=== PATIENT | female | born 1970 | race Caucasian/White ===

== ENCOUNTER 2024-03-14 13:04 | Inpatient (IN) | payer OTHER, SELFPAY ==
[2024-03-14] VITALS (43 sets, daily range): BP systolic 68–138; BP diastolic 47–97; BMI 31.7
[2024-03-14] MEDS: NSS 1000 IV ×3 (09:39→17:49)
--- NOTE | 2024-03-14 09:40 | ED.GENMED ---
History of Present Illness
General
Chief Complaint: Change in Mental Status
Source: patient, ambulance crew and alf
Exam Limitations: other (Combination of clinical condition as well as schizoaffective disorder and chronic difficulty with communication)
Time Seen by Provider: 03/14/24 09:02
History of Present Illness
History of Present Illness:
54-year-old female past medical history of hypertension hyperlipidemia GERD, previous stroke Fernea presenting to the emergency department today with concerns of altered mental status from [facility]. Apparently she was febrile walk 3 weeks ago now
she has been very lethargic and tired.
Review of Systems
Review of Systems
Allergies reviewed?: Yes
All Other Systems: ROS reviewed and negative except as documented in HPI and ROS
Phy Exam
Physical Exam
Physical Exam:
GENERAL: Alert , very dry
EYE: pupils equal and reactive
NECK: Supple, no significant adenopathy.
ENT: Dry mucous membranes chapped lips o/p clr, mmm.
CARDIAC: Regular rate and rhythm .
LUNGS: Clear breath sounds bilaterally, no acute respiratory distress, no wheezes/rales/rhonchi
ABDOMEN: Soft, without focal tenderness, no r/g, no cvat
NEUROLOGICAL: Alert answering questions but not seemingly making much sense. Not able to answer questions directly no focal neuro deficits
SKIN: Warm and dry, skin intact.
MUSCULOSKELETAL: No edema, well perfused.
PSYCH: Patient pleasant however not answering any questions directly and rambling incoherently.
Course
Orders/Labs/Results
Orders:
Orders
03/14/24 09:05
ECG [Electrocardiogram (*1)] Urgent
Reason for Study: Other
Other Reason for Exam: change in mental status
03/14/24 09:06
EKG- Treatment ONCE
03/14/24 09:14
Chest [CR Chest - 2 Views ] Urgent
Comment:
Reason For Exam: hypoxia
03/14/24 09:28
COVID-19 Antigen Urgent
Source: Nasal Swab
Complete Blood Count/With Diff Urgent
Comprehensive Metabolic Panel Urgent
Urinalysis Reflex To Culture Urgent
Date Specimen was Collected: 03/14/24
Time Specimen was Collected: 09:06
Urine Microscopic Reflex Cult Urgent
Influenza A+B Rapid Molecular Urgent
BARB Source: Nasal Swab
Specimen Description:
Date Specimen was Collected: 03/14/24
Time Specimen was Collected: 09:06
03/14/24 09:31
CT Head W/o Iv Contrast Urgent
Comment:
Reason For Exam: ams
0.9% Sodium Chloride 1000 ml [Nss] 1,000 ml IV BOLUS
03/14/24 11:45
NEPHROLOGY CONSULT Routine
Consulting Provider: Ben Jacome
Was physician already notified: Yes
Abnormal Lab Results
03/14/24
09:28
WBC 12.8 H 10^3/uL
(4.8-10.8)
Hct 50.7 H %
(37.0-47.0)
MCHC 31.0 L g/dL
(33.0-37.0)
MPV 14.1 H fL
(7.4-10.4)
Abs Immat Gran (auto) 0.1 H 10^3/uL
(0-0.05)
Absolute Neuts (auto) 9.8 H 10^3/uL
(1.4-6.5)
Absolute Monos (auto) 0.8 H 10^3/uL
(0.1-0.6)
Neutrophils % 76.2 H %
(42.2-75.2)
Lymphocytes % 13.3 L %
(20.5-51.1)
Sodium 155 H mmol/L
(135-145)
Carbon Dioxide 32 H mmol/L
(22-30)
BUN 149 H* mg/dl
(7-17)
Creatinine 5.0 H* mg/dL
(0.6-1.0)
Glucose 131 H mg/dl
(70-99)
Total Bilirubin 1.9 H mg/dl
(0.2-1.3)
Alkaline Phosphatase 208 H U/L
(38-126)
Total Protein 8.4 H g/dl
(6.3-8.2)
Leukocyte Esterase Rfl Trace A
(Negative)
Urine Albumin (Reflex) 1+ A
(Neg - Trace)
03/14/24 09:28
03/14/24 09:28
Vital Signs
Initial and Last Documented VS:
Initial Vital Signs
Temp Pulse Resp BP Pulse Ox
98.9 F 76 20 105/84 92
03/14/24 09:06 03/14/24 09:06 03/14/24 09:06 03/14/24 09:06 03/14/24 09:06
Last Documented Vital Signs
Temp Pulse Resp BP Pulse Ox
98.9 F 89 14 138/97 100
03/14/24 09:06 03/14/24 10:20 03/14/24 10:20 03/14/24 10:20 03/14/24 10:20
MDM/Problems Addressed
MDM/Problems Addressed:
54-year-old female presenting for altered mental status from review. She claims she has not eaten or drank anything in multiple days. Here renal function elevated significantly elevated BUN elevated sodium. Patient started on fluids as she is
likely very dehydrated appears clinically dehydrated normal CT and x-ray. Admitted for further treatment.
*Critical Care Note
Total Time (30-74mins, 75-104mins- exclusive of procedures): Not Applicable
ED Attending Note
-
Portions of this chart may have been created with voice recognition software.� Occasional wrong word or��sound alike� substitutions may have occurred due to the inherent limitations of voice recognition software.
Discharge Plan
Departure
Patient Disposition: Admit
Date of Disposition: 03/14/24
Time of Disposition: 11:47
Admit to: Med/Surg
Admit to doctor: Sathish
Presentation/result/management discussed w/ accepting MD/DO: Hospitalist
Patient with high blood pressure during this ER visit?: No
Condition: Fair
Covid-19: Not Applicable
Discharge Problem:
TERESSA (acute kidney injury), AMS (altered mental status)
Prescriptions:
No Action
acetaminophen [Tylenol] 325 mg Tablet
650 mg PO Q6HPRN PRN (Reason: mild pain)
ondansetron HCl [Zofran] 8 mg Tablet
8 mg PO Q8HPRN PRN (Reason: nausea)
magnesium hydroxide [Milk of Magnesia] 400 mg/5 mL Suspension
2,400 mg PO [id number] PRN (Reason: constipation)
lithium carbonate 300 mg Capsule
300 mg PO HS
bisacodyl [Dulcolax (bisacodyl)] 10 mg Suppository
10 mg MA DAILYPRN PRN (Reason: if no bm aftr mom)
pantoprazole [Protonix] 40 mg Tablet,Delayed Release (Dr/Ec)
40 mg PO DAILY
Fleet Enema 19-7 gram/118 mL Enema
118 ml MA DAILYPRN PRN (Reason: if no bm aftr dulcolax)
furosemide [Lasix] 20 mg Tablet
10 mg PO DAILY
nystatin 100,000 unit/gram Powder
1 applic TOPICAL BID
Rx Instructions:
abd folds, under breast, groin
aripiprazole 10 mg Tablet
10 mg PO DAILY
duloxetine [Cymbalta] 60 mg Capsule,Delayed Release(Dr/Ec)
60 mg PO DAILY
buprenorphine HCl 600 mcg Film
600 mcg BUCCAL Q12H
Referrals:
Keo Mtz, DO [Family Provider] -
Interventions
Interventions:
*Risk Screen - Suicide Last Done: 03/14/24 10:09
*General Assessment Last Done: 03/14/24 10:09
*Neglect/Abuse Screening Last Done: 03/14/24 10:09
ED- Fall Risk Assessment Last Done: 03/14/24 10:02
*ED COVID-19 Vaccine History Last Done: 03/14/24 09:13
ED- Neurological Assessment Last Done: 03/14/24 10:02
ED- Cardiac Assessment Last Done: 03/14/24 10:02
ED Swallowing Screen Last Done: 03/14/24 10:02
Discharge Date and Time
Print Language: BOLIVIAN
[2024-03-14 09:43] LABS: % Basophils 0.5 % (0-2); % Eosinophils 3.4 % (0-6); % Immature Granulocytes 0.5 % (0-0.5); % Lymphocytes 13.3 % (20.5-51.1); % Monocytes 6.1 % (1.7-9.3); % Neutrophils 76.2 % (42.2-75.2); Absolute Basophils 0.1 10^3/uL (0-0.2); Absolute Eosinophils 0.4 10^3/uL (0-0.7); Absolute Immature Granulocytes 0.1 10^3/uL (0-0.05); Absolute Lymphocytes 1.7 10^3/uL (1.2-3.4); Absolute Monocytes 0.8 10^3/uL (0.1-0.6); Absolute Neutrophils 9.8 10^3/uL (1.4-6.5); Hematocrit 50.7 % (37.0-47.0); Hemoglobin 15.7 g/dL (12.0-16.0); Mean Corpuscular Hgb 29.6 pg (27.0-31.0); Mean Corpuscular Volume 95.7 fL (81.0-99.0); Mean Platelet Volume 14.1 fL (7.4-10.4); Nucleated Red Blood Cells % 0 %; Platelet Count 154 10^3/uL (130-400); Red Cell Dist. Width 13.2 % (11.5-14.5); White Blood Cell Count 12.8 10^3/uL (4.8-10.8)
[2024-03-14 09:52] LABS: COVID-19 Antigen Negative (Negative)
[2024-03-14 10:04] LABS: Urine Albumin 1+ (Neg - Trace); Urine Bilirubin Negative (Negative); Urine Character Clear (Clear); Urine Color Yellow; Urine Glucose Negative (Negative); Urine Ketone Negative (Negative); Urine Leukocyte Trace (Negative); Urine Nitrite Negative (Negative); Urine Occult Blood Negative (Negative); Urine Urobilinogen Negative (Neg - 1+)
[2024-03-14 10:12] LABS: ALT (SGPT) 14 U/L (0-35); AST (SGOT) 23 U/L (14-36); Albumin 4.8 g/dl (3.5-5.0); Alkaline Phosphatase 208 U/L (38-126); Calcium 9.5 mg/dl (8.4-10.2); Carbon Dioxide 32 mmol/L (22-30); Chloride 105 mmol/L (98-107); Estimated Creatinine Clearance 14 ml/min; Glucose 131 mg/dl (70-99); Sodium 155 mmol/L (135-145); Total Bilirubin 1.9 mg/dl (0.2-1.3); Total Protein 8.4 g/dl (6.3-8.2); eGFR 9.64
[2024-03-14 10:29] LABS: Urine Red Blood Cell 0-2 /HPF (0-2); Urine White Cell 0-2 /HPF (0-5)
[2024-03-14 10:35] LABS: Blood Urea Nitrogen 149 mg/dl (7-17)
[2024-03-14 12:56] LABS: Calcium 8.7 mg/dl (8.4-10.2); Carbon Dioxide 33 mmol/L (22-30); Chloride 109 mmol/L (98-107); Creatine Phosphokinase 79 U/L (30-135); Estimated Creatinine Clearance 15 ml/min; Glucose 115 mg/dl (70-99); Potassium 3.5 mmol/L (3.5-5.1); Sodium 155 mmol/L (135-145); eGFR 10.13
[2024-03-14 13:10] LABS: Osmolality Urine 428 mOsm/kg (300-900)
[2024-03-14 13:27] LABS: Urine Protein 27 mg/dl (0-12); Urine Sodium 16 mmol/L (30-90)
[2024-03-14 13:35] LABS: Blood Urea Nitrogen 136 mg/dl (7-17); Lithium 2.2 mmol/L (0.6-1.2)
--- NOTE | 2024-03-14 14:26 | HPS.HSE ---
Family Physician
-
Family Physician: Keo Mtz, DO
Chief Complaint
-
Lethargy
History of Present Illness
54 female from [facility] with a medical history of major depressive disorder hyperlipidemia hypertension CVA schizoaffective bipolar chronic pain syndrome GERD who presents with lethargy and poor p.o. intake incidentally found to have
a creatinine of 5.0. CT brain without evidence of acute intracranial abnormalities. Old 4 cm posterior inferior CVA. Mild diffuse cortical atrophy. CXR without active pulmonary issues.
Limited history due to mental status.
Medical History
Past Medical History
Past Medical History: Reports CVA, GERD, HTN and Hypercholesterolemia
Past Surgical History: Reports Other
Social History
Unable to obtain full social history at this time due to: Acuity
Family History
Family History: Other
Allergies / Home Medications
Allergies reflects when Allergies were last updated in [employer].
Home Medications with original date entered in [employer]
Allergy/Medication List:
Allergies
Allergy/AdvReac Type Severity Reaction Status Date / Time
iodine Allergy Unknown Verified 03/14/24 09:10
latex Allergy Unknown Verified 03/14/24 09:10
Sulfa (Sulfonamide Allergy Unknown Verified 03/14/24 09:10
Antibiotics)
trimethoprim Allergy Unknown Verified 03/14/24 09:10
Home Medications
acetaminophen 325 mg tablet (Tylenol) 650 mg PO Q6HPRN PRN mild pain 03/14/24
aripiprazole 10 mg tablet 10 mg PO DAILY 03/14/24
bisacodyl 10 mg rectal suppository (Dulcolax (bisacodyl)) 10 mg DC DAILYPRN PRN if no bm aftr mom 03/14/24
buprenorphine HCl 600 mcg buccal film 600 mcg buccal Q12H 03/14/24
duloxetine 60 mg capsule,delayed release (Cymbalta) 60 mg PO DAILY 03/14/24
furosemide 20 mg tablet (Lasix) 10 mg PO DAILY 03/14/24
lithium carbonate 300 mg capsule 300 mg PO HS 03/14/24
magnesium hydroxide 400 mg/5 mL oral suspension (Milk of Magnesia) 2,400 mg PO [id number] PRN constipation 03/14/24
nystatin 100,000 unit/gram topical powder 1 applic topical BID 03/14/24
ondansetron HCl 8 mg tablet 8 mg PO Q8HPRN PRN nausea 03/14/24
pantoprazole 40 mg tablet,delayed release (Protonix) 40 mg PO DAILY 03/14/24
sodium phosphates 19 gram-7 gram/118 mL enema (Fleet Enema) 118 ml DC DAILYPRN PRN if no bm aftr dulcolax 03/14/24
Review of Systems
-
Unable to obtain full review of systems at this time due to: Acuity
Physical Exam
Vital Signs
Vital Signs
Temp Pulse Resp BP Pulse Ox
98.9 F 71 16 112/73 96
03/14/24 09:06 03/14/24 13:00 03/14/24 13:00 03/14/24 13:00 03/14/24 13:00
Physical Exam
General: Poor Appetite, Obese and Other (lethargic)
Laboratory Results
-
03/14/24 09:28
03/14/24 12:19
Laboratory Results
Total Bilirubin 1.9 mg/dl (0.2-1.3) H 03/14/24 09:28
AST 23 U/L (14-36) 03/14/24 09:28
ALT 14 U/L (0-35) 03/14/24 09:28
Alkaline Phosphatase 208 U/L (38-126) H 03/14/24 09:28
Impression/Plan
-
Lethargic, confused, crusting over both eyelids,
Scleral Anicteric
DMM, bruising on lateral portions of tongue
No JVD
Poor inspiratory effort, diminished breath sounds
RRR, S1/S2
Soft, NT, ND, BS+
Warm, Dry
Arousable but lethargic does not know where she has thinks it is September 2024
Toxic metabolic encephalopathy suspect related to lithium toxicity versus uremic encephalopathy
-Check lithium level
-May require hemodialysis
-May require EEG as she has bruising on lateral tongue
-Check CK if high would obtain EEG
TERESSA
-Place Banegas
-Check urine studies
-RBUS
-CK
-Avoid nephrotoxins hypotension
Bipolar/schizophrenia
-Continue neuropsychiatric agents
-Hold lithium
-Consult psychiatry
Leukocytosis
-Without other defining evidence of acute infectious process. Will continue to monitor.
-If becomes hypotensive or febrile would obtain blood cultures 30 minutes apart from 2 different sites and initiate IV antibiotics
There is no listed contacts
-Will require hemodialysis
-Two-physician emergency consent is required
-I agree with this as this is needed to emergently treat. She will need emergent hemodialysis along with emergent temporary/primary catheter dialysis placement
--- NOTE | 2024-03-14 14:43 | CON.INTV ---
Consultation
Consultation Request
Date/Time Consultation Requested: 03/14/2024-4 PM
Date/Time Consultation Performed: 03/14/2024-4:30 PM
Requesting Provider: Hospitalist
Performing Provider: Dr. Ovalle
Reason for Consultation: [place] toxicity/critical care management
Medical History
-
Chief Complaint: Lethargy and renal failure
History of Present Illness:
54-year-old female from [facility] with a history of depression, hypertension, hyperlipidemia, schizoaffective disorder, bipolar disorder, hypertension, GERD, and CVA who presented with lethargy noted to have lithium toxicity and acute renal
failure-legal coordinator consulted for acute renal failure/emergent dialysis/lithium toxicity and critical care management 03/14/2024. Patient is seen in the medical intensive care unit when she arrived and she is lethargic and noncommunicative. Review
of systems was unobtainable. She was in no respiratory distress.
Past Medical History
Past Medical History: None (Hypertension. Hyperlipidemia. Major depression. Schizoaffective disorder. Bipolar disorder. GERD. CVA.)
Social History
Tobacco: Other (Unknown)
Alcohol: None
Drug: None
Living: [facility]
Occupational Exposures: No known asbestos exposure
Environmental Exposures: No known tuberculosis exposure
Family History
Family History: Unable to Obtain
Allergies / Home Medications
Allergies
Allergy/AdvReac Type Severity Reaction Status Date / Time
iodine Allergy Unknown Verified 03/14/24 09:10
latex Allergy Unknown Verified 03/14/24 09:10
Sulfa (Sulfonamide Allergy Unknown Verified 03/14/24 09:10
Antibiotics)
trimethoprim Allergy Unknown Verified 03/14/24 09:10
Home Medications
�Medication �Instructions �Recorded �Confirmed �Last Taken �Type
acetaminophen 325 mg tablet 650 mg PO Q6HPRN PRN mild pain 03/14/24 03/14/24 Unknown History
(Tylenol)
aripiprazole 10 mg tablet 10 mg PO DAILY 03/14/24 03/14/24 Unknown History
bisacodyl 10 mg rectal suppository 10 mg MT DAILYPRN PRN if no bm 03/14/24 03/14/24 Unknown History
(Dulcolax (bisacodyl)) aftr mom
buprenorphine HCl 600 mcg buccal 600 mcg buccal Q12H 03/14/24 03/14/24 Unknown History
film
duloxetine 60 mg capsule,delayed 60 mg PO DAILY 03/14/24 03/14/24 Unknown History
release (Cymbalta)
furosemide 20 mg tablet (Lasix) 10 mg PO DAILY 03/14/24 03/14/24 Unknown History
lithium carbonate 300 mg capsule 300 mg PO HS 03/14/24 03/14/24 Unknown History
magnesium hydroxide 400 mg/5 mL 2,400 mg PO [id number] PRN 03/14/24 03/14/24 Unknown History
oral suspension (Milk of Magnesia) constipation
nystatin 100,000 unit/gram topical 1 applic topical BID 03/14/24 03/14/24 Unknown History
powder
ondansetron HCl 8 mg tablet 8 mg PO Q8HPRN PRN nausea 03/14/24 03/14/24 Unknown History
pantoprazole 40 mg tablet,delayed 40 mg PO DAILY 03/14/24 03/14/24 Unknown History
release (Protonix)
sodium phosphates 19 gram-7 118 ml MT DAILYPRN PRN if no bm 03/14/24 03/14/24 Unknown History
gram/118 mL enema (Fleet Enema) aftr dulcolax
Review of Systems
-
Unable to Obtain full review of systems at this time due to: Other (Per HPI)
Vitals / Labs / Diagnostic Testing
Vital Signs
Temp Pulse Resp BP Pulse Ox
98.9 F 70 20 110/47 96
03/14/24 09:06 03/14/24 14:30 03/14/24 14:30 03/14/24 14:00 03/14/24 14:30
Lab Data
03/14/24 09:28
03/14/24 12:19
Microbiology
03/14/24 09:28 Nasal Swab Influenza Types A & B (BREEZY) - Final
Negative for Influenza A & B, NAAT
Negative results must be combined with clinical observations
and patient history.
Nucleic Acid Amplification test (NAAT)performed on the
[employer] platform.
Diagnostic Testing:
Physical Exam
-
Exam:
Well-nourished and well-developed in no apparent distress
HEENT-atraumatic, normocephalic,
Neck-supple, no JVD, no bruit
Heart-regular rate and rhythm-no murmurs, rubs or gallops
Chest-clear to auscultation, no wheezes, crackles
Back-no tenderness
Abdomen-soft, nontender, nondistended, no hepatosplenomegaly
Extremities-no cyanosis, clubbing, edema and good peripheral pulses
Integument-intact, no rashes, lesions or ecchymosis
Neurologically alert but lethargic, moving extremities
Assessment
-
54-year-old female from [facility] with a history of depression, hypertension, hyperlipidemia, schizoaffective disorder, bipolar disorder, hypertension, GERD, and CVA who presented with lethargy noted to have lithium toxicity and acute renal
failure-legal coordinator consulted for acute renal failure/emergent dialysis/lithium toxicity and critical care management 03/14/2024.
TERESSA
[place] toxicity- 2.2
Hypernatremia
Toxic metabolic encephalopathy
Leukocytosis
Mild hyperglycemia
Conditions present prior to admission:
Hypertension.
Hyperlipidemia.
Major depression.
Schizoaffective disorder.
Bipolar disorder.
GERD.
CVA.
Plan
Patient will be transported to medical intensive care unit for emergent dialysis and this lithium toxic patient
Supplemental oxygen as needed
High flow oxygen if needed
Aspiration precautions
Nebulizers if needed-currently not bronchospastic
Nephrology evaluation
Emergent hemodialysis
Monitor renal function
Replace electrolytes as needed
Intravenous fluids per nephrology
Monitor blood sugar
Insulin supplementation if needed
DVT prophylaxis-on subcu heparin
GI prophylaxis-on pantoprazole
Nutrition orally when mental status improves-aspiration precautions speech therapy evaluation if needed
Early mobilization
Critical care statement: A total of 65 minutes of critical care time was provided for this patient today. This includes management of unstable vital signs, evaluation of the patient at bedside, reviewing the patient's pertinent medical records
including radiographs, microbiology, laboratory evaluations, and discussion with primary team, consultants, pharmacy, nutrition, physical therapy, case management, charge nurse, critical care nursing, and respiratory therapy.
Diagnostic data:
Chest x-ray 03/14/2024-NAD
CT head 03/14/2024-old 4 cm right posterior inferior cerebellar infarct
Data Reviewed
-
EKG: Report reviewed by me
Radiology: Report reviewed by me
Medical Tests (Nuc Med, Echo etc): Report reviewed by me
Labs: Labs reviewed by me
Old Records: Reviewed
Critical Care Time (in minutes): 65
--- NOTE | 2024-03-14 16:24 | CS.PSYCHR ---
Consult Summary - Psychiatry
-
Pt is a 54 yo female from [facility] with PMH of hyperlipidemia, hypertension, CVA, chronic pain syndrome, GERD, hx of Bipolar vs Schizoaffective d/o who presented with lethargy and poor p.o. intake; found to have a creatinine of 5.0.
Head CT showed no acute intracranial abnormalities, old 4 cm posterior inferior CVA, mild diffuse cortical atrophy. [place] level 2.2 at 12:19 pm today. QTc 497.
On exam, pt lying on stretcher, awake, c/o pain in her lower body, states unable to move her feet. Pt is poor historian, not able to give much information, was able to state she is at [facility]. Pt having occasional generalized body
twitch.
Psych Hx: unspecified Bipolar vs Schizoaffective d/o, no details available. Pt on [place] Switch, Abilify, Cymbalta
SH: from [facility]; no other information available.
MSE: lying on stretcher, immobile, awake but appears confused. Oriented to self and place. Not able to answer questions. No overt psychosis, no agitation.
Imp: Unspecified Bipolar d/o vs Schizoaffective d/o, presenting with [place] toxicity
Rec: Agree with holding off psychotropic medications until pt is more stable and history can be obtained
will follow
--- NOTE | 2024-03-14 16:36 | PTCARENOTE ---
Pt admitted to ICU bed 3370 from ED. Pt drowsy with quiet, garbled speech and frequent muscle twitching. Sinus rhythm. VSS. Lungs CTA. Abdomen soft. Banegas intact. New right IJ HD cath. HD RN at bedside.
[2024-03-14] MEDS: MANNITOL 25% 12.5 GRAMS IV ×2 (16:45→17:45)
--- NOTE | 2024-03-14 17:13 | W.CON.NEPH ---
Consultation
-
Date/Time Consultation Requested: March 14, 2024 at 11:45 AM
Date/Time Consultation Performed: March 14, 2024 at 3 PM
Requesting Provider: Dr. Iniguez
Performing Provider: Dr. Ben Jacome
Reason for Consultation: Acute kidney injury
Medical History
-
Chief Complaint: Acute kidney injury
History of Present Illness:
54 female from [facility] with a medical history of major depressive disorder hyperlipidemia hypertension CVA schizoaffective bipolar chronic pain syndrome GERD who presents with lethargy and poor p.o. intake incidentally found to have
a creatinine of 5.0. CT brain without evidence of acute intracranial abnormalities. Old 4 cm posterior inferior CVA. Mild diffuse cortical atrophy..
Patient found to be in acute kidney injury she is on lithium with a lithium level of 2.2 she is essentially obtunded no response she is oligoanuric
Renal consult for acute kidney injury
Past Medical History
Schizoaffective bipolar disorder chronic pain syndrome history of CVA hypertension hyperlipidemia
Social History
Unobtainable secondary to clinical status
Family History
Family History: Not Pertinent
Allergies / Home Medications
Allergy/AdvReac Type Severity Reaction Status Date / Time
iodine Allergy Unknown Verified 03/14/24 09:10
latex Allergy Unknown Verified 03/14/24 09:10
Sulfa (Sulfonamide Allergy Unknown Verified 03/14/24 09:10
Antibiotics)
trimethoprim Allergy Unknown Verified 03/14/24 09:10
�Medication �Instructions �Recorded �Confirmed �Type
acetaminophen 325 mg tablet 650 mg PO Q6HPRN PRN mild pain 03/14/24 03/14/24 History
(Tylenol)
aripiprazole 10 mg tablet 10 mg PO DAILY 03/14/24 03/14/24 History
bisacodyl 10 mg rectal suppository 10 mg NC DAILYPRN PRN if no bm 03/14/24 03/14/24 History
(Dulcolax (bisacodyl)) aftr mom
buprenorphine HCl 600 mcg buccal 600 mcg buccal Q12H 03/14/24 03/14/24 History
film
duloxetine 60 mg capsule,delayed 60 mg PO DAILY 03/14/24 03/14/24 History
release (Cymbalta)
furosemide 20 mg tablet (Lasix) 10 mg PO DAILY 03/14/24 03/14/24 History
lithium carbonate 300 mg capsule 300 mg PO HS 03/14/24 03/14/24 History
magnesium hydroxide 400 mg/5 mL 2,400 mg PO [id number] PRN 03/14/24 03/14/24 History
oral suspension (Milk of Magnesia) constipation
nystatin 100,000 unit/gram topical 1 applic topical BID 03/14/24 03/14/24 History
powder
ondansetron HCl 8 mg tablet 8 mg PO Q8HPRN PRN nausea 03/14/24 03/14/24 History
pantoprazole 40 mg tablet,delayed 40 mg PO DAILY 03/14/24 03/14/24 History
release (Protonix)
sodium phosphates 19 gram-7 118 ml NC DAILYPRN PRN if no bm 03/14/24 03/14/24 History
gram/118 mL enema (Fleet Enema) aftr dulcolax
Review of Systems
-
Patient essentially obtunded unable to provide history
Physical Exam
Vital Signs
Vital Signs
Temp Pulse Resp BP Pulse Ox
98.3 F 91 21 115/66 93
03/14/24 16:32 03/14/24 16:32 03/14/24 16:32 03/14/24 16:32 03/14/24 16:32
Lab Results
WBC 12.8 10^3/uL (4.8-10.8) H 03/14/24 09:28
RBC 5.30 10^6/uL (4.20-5.40) 03/14/24 09:28
Hgb 15.7 g/dL (12.0-16.0) 03/14/24 09:28
Hct 50.7 % (37.0-47.0) H 03/14/24 09:28
Plt Count 154 10^3/uL (130-400) 03/14/24 09:28
Sodium 155 mmol/L (135-145) H 03/14/24 12:19
Potassium 3.5 mmol/L (3.5-5.1) 03/14/24 12:19
Chloride 109 mmol/L (98-107) H 03/14/24 12:19
Carbon Dioxide 33 mmol/L (22-30) H 03/14/24 12:19
BUN 136 mg/dl (7-17) H* 03/14/24 12:19
Creatinine 4.8 mg/dL (0.6-1.0) H* 03/14/24 12:19
eGFR 10.13 03/14/24 12:19
Glucose 115 mg/dl (70-99) H 03/14/24 12:19
Calcium 8.7 mg/dl (8.4-10.2) 03/14/24 12:19
Albumin 4.8 g/dl (3.5-5.0) 03/14/24 09:28
Physical Exam
General no acute distress
HEENT no cephalic atraumatic extraocular muscle intact no scleral icterus no JVD neck supple
lungs clear to auscultation bilateral
heart regular S1-S2 positive
abdomen soft nontender positive bowel sounds
extremities no edema pulses present bilateral
Neurologically moans in response to verbal stimuli
Skin no lesions no abrasions no petechiae
Psych minimal responsiveness
Data Reviewed
-
Radiology: Image Personally Visualized and interpreted
Labs: Labs Reviewed by me
Critical Care Time (in minutes): 45
Assessment/Plan
-
54 female from [facility] with a medical history of major depressive disorder hyperlipidemia hypertension CVA schizoaffective bipolar chronic pain syndrome GERD who presents with lethargy and poor p.o. intake incidentally found to have
a creatinine of 5.0. CT brain without evidence of acute intracranial abnormalities. Old 4 cm posterior inferior CVA. Mild diffuse cortical atrophy..
Patient found to be in acute kidney injury she is on lithium with a lithium level of 2.2 she is essentially obtunded no response she is oligoanuric
Renal consult for acute kidney injury
Impression:
Acute kidney injury with lithium toxicity level 2.2.
Bipolar disorder schizoaffective.
Hypertensive disorder.
Plan:
Called [facility] where she resides and retrieved a phone number of her friend's name is Margarita Pedersen who provided that the patient does not have any family as far she is aware of that she has never met it. She has no POA she may have 2
stepsons but no contact information.
Patient requires acute hemodialysis for altered mental status oligoanuria in the setting of lithium toxicity with a level 2.2.
Emergent dialysis ordered to discuss this with the primary hospitalist who agrees and documented urgency on patient's behalf
Consulted interventional radiology.
Dialysis orders
Repeat lithium levels postdialysis
Total Time Spent with Patient (in minutes): 45
--- NOTE | 2024-03-14 17:22 | PTCARENOTE ---
Pt unable to answer admission questions. Several calls made to [facility] to request vaccine record and contact information but no answer.
[2024-03-14 18:14] LABS: Hepatitis B Surface Antigen Negative (Negative)
[2024-03-14 18:31] LABS: Hepatitis B Surface Antibody Negative
--- NOTE | 2024-03-14 18:41 | W.PN.NEPH.HD ---
Progress Note - Hemodialysis
-
Date of Service: March 14, 2024
Duration: 30 minutes and 3 hours
Potassium Bath: 2
Calcium Bath: 2.5
Opti-Dialyzer: 160
Blood Flow: 350
Dialysate Flow: 600
Heparin: no
EPO: no
[2024-03-14] MEDS: HEPARIN 5000 UNITS SC (19:46)
--- NOTE | 2024-03-14 20:03 | PTCARENOTE ---
Addendum entered by Shaniqua Fall RN 03/14/24 20:05:
Dialysis ongoing, [facility] HD cath.
Original Note:
Received patient oriented to self, intermittently following commands, responding occasionally in garbled speech. PERRLA, 2 mm. Myoclonus throughout extremities. Normal sinus 70s-90s, BP stable 120s/90s, normothermic. On 2 liters nasal cannula
saturating 96%. Lung sounds diminished throughout. Abdomen round, soft, hypoactive bowel sounds. Banegas in place. Skin intact, PIVs patent, WNL. NSS ongoing per order. Hourly rounding and patient safety checks ongoing.
[2024-03-14 22:32] LABS: Lithium 1.1 mmol/L (0.6-1.2)
[2024-03-15] VITALS (50 sets, daily range): BP systolic 101–156; BP diastolic 59–101; BMI 34.0
--- NOTE | 2024-03-15 | PTCARENOTE ---
Patient assessment unchanged from previous, hourly rounding and patient safety checks ongoing.
[2024-03-15] MEDS: NSS 1000 IV ×3 (03:22→18:09)
--- NOTE | 2024-03-15 04:23 | PTCARENOTE ---
CHG bath done, labs sent, repositioned. Otherwise patient assessment unchanged from previous.
[2024-03-15 04:58] LABS: Blood Urea Nitrogen 46 mg/dl (7-17); Calcium 8.5 mg/dl (8.4-10.2); Carbon Dioxide 23 mmol/L (22-30); Chloride 110 mmol/L (98-107); Estimated Creatinine Clearance 35 ml/min; Glucose 103 mg/dl (70-99); Lithium 1.3 mmol/L (0.6-1.2); Magnesium 2.1 mg/dl (1.6-2.3); Potassium 3.3 mmol/L (3.5-5.1); Sodium 148 mmol/L (135-145); eGFR 27.31
[2024-03-15 05:01] LABS: Hematocrit 41.1 % (37.0-47.0); Hemoglobin 12.9 g/dL (12.0-16.0); Mean Corp Hgb Conc. 31.4 g/dL (33.0-37.0); Mean Corpuscular Hgb 29.3 pg (27.0-31.0); Mean Corpuscular Volume 93.2 fL (81.0-99.0); Red Blood Cell Count 4.41 10^6/uL (4.20-5.40); Red Cell Dist. Width 12.8 % (11.5-14.5); White Blood Cell Count 10.2 10^3/uL (4.8-10.8)
[2024-03-15] MEDS: KCL 270 MEQ IV (06:31)
--- NOTE | 2024-03-15 07:35 | W.PN.INTV ---
Today's Communication / Plan
Recommendations
Supplemental oxygen
Hemodialysis
Replace electrolytes
Follow lithium level
Intravenous fluids
If remains stable after hemodialysis then could be transferred out of ICU-call pulmonary if respiratory issues arise
Assessment
-
54-year-old female from [facility] with a history of depression, hypertension, hyperlipidemia, schizoaffective disorder, bipolar disorder, hypertension, GERD, and CVA who presented with lethargy noted to have lithium toxicity and acute renal
failure-sales review clerk consulted for acute renal failure/emergent dialysis/lithium toxicity and critical care management 03/14/2024.
TERESSA
[place] toxicity- 2.2
Hypernatremia
Toxic metabolic encephalopathy
Leukocytosis
Mild hyperglycemia
Conditions present prior to admission:
Hypertension.
Hyperlipidemia.
Major depression.
Schizoaffective disorder.
Bipolar disorder.
GERD.
CVA.
Plan
Patient will be transported to medical intensive care unit for emergent dialysis and this lithium toxic patient
Supplemental oxygen as needed
Aspiration precautions
Nebulizers if needed-currently not bronchospastic
Nephrology evaluation ongoing-correspondence reviewed
Emergent hemodialysis yesterday and again today
Monitor renal function
Replace electrolytes as needed
Intravenous fluids per nephrology
Monitor blood sugar
Insulin supplementation if needed
DVT prophylaxis-on subcu heparin
GI prophylaxis-on pantoprazole
Nutrition orally when mental status improves-aspiration precautions speech therapy evaluation if needed
Early mobilization
If remains hemodynamically stable after hemodialysis patient could be transferred out of ICU-call pulmonary if respiratory issues arise
Critical care statement: A total of 40 minutes of critical care time was provided for this patient today. This includes management of unstable vital signs, evaluation of the patient at bedside, reviewing the patient's pertinent medical records
including radiographs, microbiology, laboratory evaluations, and discussion with primary team, consultants, pharmacy, nutrition, physical therapy, case management, charge nurse, critical care nursing, and respiratory therapy.
Diagnostic data:
Chest x-ray 03/14/2024-NAD
CT head 03/14/2024-old 4 cm right posterior inferior cerebellar infarct
Subjective Dataa
Subjective Data
Date of Service:
Date of Service: March 15, 2024
Chief Complaint: Dish Up Person Follow Up and Pulmonary Follow Up
Subjective:
Tolerated hemodialysis, still lethargic, occasionally wakes up and is marginally appropriate, moving extremities, reliable review of systems unobtainable
Review of Systems
General: Other (Per HPI)
Objective Data
Data Reviewed
Vital Signs / I&O / Oxygen:
Vital Signs
Temp Pulse Resp BP Pulse Ox
99.6 F 65 9 124/78 97
03/15/24 03:30 03/15/24 06:15 03/15/24 06:15 03/15/24 06:00 03/15/24 06:15
Intake and Output
03/14/24 03/15/24 03/16/24
06:59 06:59 06:59
Intake Total 1767.5 / 1767.5
Output Total 510 / 510
Balance 1257.5 / 1257.5
SaO2 97
Nasal Cannula flow liters per 2
minute
Physical Exam
General: Respiratory Distress (n) and Comfortable
HEENT: Normocephalic, Anicteric and Moist Mucous Membranes
Cardiovascular: Regular Rhythm
Respiratory: Wheeze (n), Crackles (n), Rhonchi (n), Non-Labored Respirations, Accessory Resp Muscle Use (n) and Stridor (n)
GI: Soft, Non Distended and Non Tender
Neurology: Alert and No Motor Deficits
Skin: Warm, Good Color, Cyanosis (n), Jaundice (n) and Rash (n)
Labs/Micro/Reports
Lab Data
03/15/24 04:12
03/15/24 04:12
Microbiology
03/14/24 09:28 Nasal Swab Influenza Types A & B (BREEZY) - Final
Negative for Influenza A & B, NAAT
Negative results must be combined with clinical observations
and patient history.
Nucleic Acid Amplification test (NAAT)performed on the
[employer] platform.
--- NOTE | 2024-03-15 08:24 | W.PN.NEPH.PH ---
Today's Communication / Plan
-
Dialysis today
Follow-up lithium level am
Mental status with mild improvement
Maintain IV fluidn 100cc/hr of NSS
Assessment/Plan
-
54 female from [facility] with a medical history of major depressive disorder hyperlipidemia hypertension CVA schizoaffective bipolar chronic pain syndrome GERD who presents with lethargy and poor p.o. intake incidentally found to have
a creatinine of 5.0. CT brain without evidence of acute intracranial abnormalities. Old 4 cm posterior inferior CVA. Mild diffuse cortical atrophy..
Patient found to be in acute kidney injury she is on lithium with a lithium level of 2.2 she is essentially obtunded no response she is oligoanuric
Renal consult for acute kidney injury
Impression:
Acute kidney injury with lithium toxicity level 2.2.
Bipolar disorder schizoaffective.
Hypertensive disorder.
Plan:
Previously called [facility] where she resides and retrieved a phone number of her friend's name is Margarita Pedersen who provided that the patient does not have any family as far she is aware of that she has never met it. She has no POA she
may have 2 stepsons but no contact information.
Patient required acute hemodialysis for altered mental status oligoanuria in the setting of lithium toxicity with a level 2.2.
Emergent dialysis was ordered last evening
Repeat lithium level this morning 1.3
Repeat HD today
Urine output 510 cc via hazel
-
-
Date of Service: March 15, 2024
CC / HPI / ROS
-
Chief Complaint:
Acute kidney injury with lithium toxicity
History of Present Illness:
Dialysis yesterday for TERESSA and lithium toxicity
Hemodynamically stable
Review of Systems:
Mental status remains altered
500 cc of urine output via Hazel
Labs
-
Labs:
WBC 10.2 10^3/uL (4.8-10.8) 03/15/24 04:12
RBC 4.41 10^6/uL (4.20-5.40) 03/15/24 04:12
Hgb 12.9 g/dL (12.0-16.0) 03/15/24 04:12
Hct 41.1 % (37.0-47.0) 03/15/24 04:12
Sodium 148 mmol/L (135-145) H 03/15/24 04:12
Potassium 3.3 mmol/L (3.5-5.1) L 03/15/24 04:12
Chloride 110 mmol/L (98-107) H 03/15/24 04:12
Carbon Dioxide 23 mmol/L (22-30) 03/15/24 04:12
BUN 46 mg/dl (7-17) H 03/15/24 04:12
Creatinine 2.1 mg/dL (0.6-1.0) H 03/15/24 04:12
eGFR 27.31 03/15/24 04:12
Glucose 103 mg/dl (70-99) H 03/15/24 04:12
Calcium 8.5 mg/dl (8.4-10.2) 03/15/24 04:12
Albumin 4.8 g/dl (3.5-5.0) 03/14/24 09:28
Physical Exam
-
Vital Signs:
Vital Signs
Temp Pulse Resp BP Pulse Ox
99 F 65 9 124/78 97
03/15/24 08:05 03/15/24 06:15 03/15/24 06:15 03/15/24 06:00 03/15/24 06:15
Cardiovascular:: Regular rate and rhythm
Respiratory:: Bilateral: CTA
Lung Excursion:: Normal
Abdomen:: Nontender and Soft
Bowel Sounds:: Decreased
Extremity Edema:: None: Bilateral:
Hazel Catheter: Yes
--- NOTE | 2024-03-15 08:40 | PTCARENOTE ---
Rec'd pt at 0730 resting in bed with eyes closed. Will easily arouse to verbal stimuli but only tends to open her eyes if asked and then not keep them open long. YUAN but very weakly. Pt with frequent twitching of arms/legs/face- especially with
stimulation. Arms tends to stiffen with stimulation/movement. L handgrasp was minimally weaker than the R. Able to move feet. Does not tend to move on her own. Speech- some words/phrases come out clearly but then trail into a more garbled speech.
Conversation seems overall oriented but is limited and difficult to have an in-depth conversation. Skin is pale pink wm and dry. Noted on posterior upper thigh/buttock area to have some linear reddened non-blanchable areas- no brief on pt currently.
Respirs are sl shallow but non-labored. Pt currently on 2l nc with sats of 95-97%. BS are decreased at the bases. Denies shortness of breath. Monitor SR with isolated PAC's/PVC's. Sl prolonged QT at 501. + pulses. Tr pedal/ankle edema. VS as
documented. Abd is round and soft with + hypoactive BS. Tried to test pt with water- took about 3 sips of 3 occasions but needs alot of direction. Did swallow without coughing but will not keep her eyes open to drink. Banegas intact for shin/tea
colored urine. IV NSS infusing via L forearm IV site at 100ml/hr along with 40meq KCL rider. Site wnl. Capped int intact RAC. RIJ HD cath intact site wnl. Pt repositioned. logistics technician in at 0800 and pt currently having an EEG. Call ag in reach.
[2024-03-15] MEDS: HEPARIN 5000 UNITS SC ×3 (09:03→23:25)
[2024-03-15] MEDS: PROTONIX PO (09:04)
[2024-03-15] MEDS: FLUSH (NSS) 1 FLUSH IV (09:15)
[2024-03-15] MEDS: ZOFRAN 4 MG IV ×2 (09:15→19:22)
--- NOTE | 2024-03-15 09:30 | PTCARENOTE ---
EEG completed. Pt easily responsive but tends to keep her eyes shut. Speech- some phrases are clear and others tend to get more garbled. Definitely has more twitches/tremors with stimulation and talking. Tried to give pt a few sips of water to test
swallowing- after taking 3 sips with a straw- slowly pt vomited 3 times brown emesis- approx 200 mls. She just kept saying she was sorry. When asked if she was nauseated she said 'yes'. Dr. Ovalle updated and pt medicated with Zofran 4 mg IV at
914. Pt c/o generalized achiness- when asked if she has pain she stated 'what doesn't hurt'. Complete CHG bath given. Mouth and hazel care given. Turned and repositioned. Linens changed. Call ag in reach.
--- NOTE | 2024-03-15 10:45 | PTCARENOTE ---
Pt resting. Abd xrays taken.
--- NOTE | 2024-03-15 12:21 | PTCARENOTE ---
Overall assessment is unchanged. Turned and repositioned. Abd xray resulted as no obstruction. Pt given few ice chips and so far is tolerating. NSS continues to infuse via L forearm IV site. Awaiting HD.
--- NOTE | 2024-03-15 13:15 | PTCARENOTE ---
Pt resting. Eyes closed unless stimulated but then will only keep then open briefly. Does respond. HD started.
[2024-03-15] MEDS: MANNITOL 25% 12.5 GRAMS IV ×2 (13:54→14:58)
--- NOTE | 2024-03-15 13:54 | W.PN.NEPH.HD ---
Assessment
-
Patient seen on dialysis
Systolic blood pressure stable, no UF ordered
Dialyzing for lithium toxicity
Catheter with good function
Patient remains confused and withdrawn
Progress Note - Hemodialysis
-
Date of Service: March 15, 2024
Duration: 30 minutes and 3 hours
Potassium Bath: 3
Opti-Dialyzer: 160
Ultrafiltration: Other (None)
Blood Flow: 300
Dialysate Flow: 600
Heparin: none
EPO: none
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
--- NOTE | 2024-03-15 15:13 | W.PN.UPDATE ---
Update Note
Progress Note Update
patient seen chart reviewed. discussed w nursing. patient w hx hld htn cva in the past as well as gerd. she has hx of mood disorder . she was admitted w creatinine of 5 and lithium level over two. she is currently being dialyzed and this interview
was cut short bc of fears that dialysis port which was tenuous might dislodge when she was talking given movement. she did tell me she was not feeling well. it seemed as though she understood why she was hear. her voice would start off fairly
strong then devolved into a mumble. for now would hold all psych medications including lithium which was not reordered and abiilfy which was reordered ( I dc'ed it.) nursing held it this am which is the right decision. agreed w patient to come
back in the am and talk to her again.
--- NOTE | 2024-03-15 16:03 | W.PN.HOSP.TC ---
Today's Communication/Plan
-
Assessment / Plan
Assessment / Plan
NAD, deconditioned
Scleral Anicteric
Dry mucous membranes
No JVD
CTABL
RRR, S1/S2
Soft, NT, ND, BS+
Warm, Dry
Arousable but lethargic
Toxic metabolic encephalopathy likely related to lithium toxicity however cannot rule out uremia as a potential cause.
-Now receiving as needed hemodialysis per nephrology
-Repeat lithium level tomorrow
-Psychiatry following hold sedative
TERESSA
Monitor urinary output
Avoid hypotension nephrotoxins
Follow renal function
Follow nephrology recommendation
Hypokalemia
Replete
Bipolar/schizophrenia
-Hold neuropsychiatric agents
-Hold lithium
-Psychiatry consulted
Anticipated Discharge: > 48 hours
Subjective/Interval History
-
Date of Service: March 15, 2024
Seen and examined. Has a temporary hemodialysis line in the right IJ. S/p 1 session of hemodialysis with nephrology
Objective Data
-
Labs:
Laboratory Results
03/15/24
04:12
WBC 10.2
Hgb 12.9
Hct 41.1
Plt Count
Sodium 148 H
Potassium 3.3 L
Chloride 110 H
Carbon Dioxide 23
BUN 46 H
Creatinine 2.1 H
Glucose 103 H
Calcium 8.5
Vital Signs:
Vital Signs
Temp Pulse Resp BP Pulse Ox
98 F 67 11 125/70 97
03/15/24 15:18 03/15/24 13:15 03/15/24 13:15 03/15/24 13:15 03/15/24 13:20
I&O
01/14/25 01/15/25 01/16/25
06:59 06:59 06:59
Intake Total 1767.5 / 1935.0 902.5 / 902.5
Output Total 510 / 510 350 / 350
Balance 1257.5 / 1425.0 552.5 / 552.5
--- NOTE | 2024-03-15 17:15 | PTCARENOTE ---
HD completed at around 1645. Slept or dozed most of treatment. Will readily arouse to verbal stimuli but continues to mostly keep her eyes shut unless asked to open them and even then it is only brief. Conversation is mostly oriented-however this
evening asked twice to be taken inside so she could go to sleep even after being told she is inside of DH in the ICU. Speech remains unchanged- starts out with some clear speech that transitions to mumbled/garbled speech. . YUAN weakly and pretty
much only when asked. Still with twitching-especially when touched. Changed over pt to RA with sats of 96%. VS as documented. Urine output as noted- mostly between 30-40 mls. NSS infusing at 100 ml/hr via L forearm IV site. Taking ice chips and
tolerating with no further vomiting,, however does not stay consistently awake enough to drink water. Call ag in reach. [facility] HD site wnl.
--- NOTE | 2024-03-15 18:22 | EEGC.RPT ---
Continuous EEG Report
Recording
Start Date of Data Reviewed: 03/15/24
Done with Video Recording: Yes
Electrocardiogram: Unremarkable
Report
TECHNICAL REMARKS:��This is a technically satisfactory eighteen channel record employing 21 disc electrodes applied according to a measured international 10-20 electrode placement system.��There were no significant technical difficulties.��The study
was done on a VCE System.
STUDY DURATION: 29 min 15 secs
MEDICATIONS: Abilify, lithium
CLINICAL HISTORY: This is a 54-year-old woman with encephalopathy.���This study was requested to look for epileptiform activity.
REPORT: �At the onset of the EEG, the patient is drowsy. The background activity consists of 6-7 Hz, impersistent, posteriorly dominant, moderate amplitude, symmetric, and rhythmic activity. Bursts of 1-2 Hz 30-70 �V frontal intermittent red martell
delta activity was present.� Stepwise intermittent photic stimulation(1-31 Hz) did not induce additional abnormalities. Hyperventilation was not performed. No epileptiform activity was seen.� Multiple muscle artifacts were present limited precise
characterization of the record.
IMPRESSION: �This is an abnormal EEG recorded in the patient in drowsy state due generalized slowing and FIRDA. This finding indicates diffuse cerebral dysfunction, nonspecific in terms of etiology.������
--- NOTE | 2024-03-15 19:32 | PTCARENOTE ---
Received patient AAOx2, knew she was in the hospital but not which one. Clear speech at first, then transitions into garbled/quiet speech which is difficult to understand. MARK YUAN 2 mm. Reported feeling queasy/nauseous, zofran given. Normal
sinus 70s-80s, BP stable 110s/60s, normothermic. QT prolonged, 500s. Palpable radial and pedal pulses b/l, trace pedal edema. 95% on room air, lung sounds diminished throughout. Abdomen soft, round, nontender, hypoactive BS. No BM. Banegas in place
draining yellow/shin urine. Skin intact, stage 1 in between thighs b/l, MARION. PIVs patent, WNL, NSS ongoing per order. Call ag within reach, hourly rounding and patient safety checks ongoing.
[2024-03-16] VITALS (19 sets, daily range): BP systolic 86–140; BP diastolic 55–87; BMI 34.1
--- NOTE | 2024-03-16 03:37 | PTCARENOTE ---
Patient assessment unchanged from previous, hourly rounding and patient safety checks ongoing.
[2024-03-16] MEDS: NSS 1000 IV (03:45)
[2024-03-16 04:04] LABS: Blood Urea Nitrogen 19 mg/dl (7-17); Calcium 8.2 mg/dl (8.4-10.2); Carbon Dioxide 25 mmol/L (22-30); Chloride 109 mmol/L (98-107); Estimated Creatinine Clearance 44 ml/min; Glucose 98 mg/dl (70-99); Lithium 0.8 mmol/L (0.6-1.2); Potassium 3.7 mmol/L (3.5-5.1); Sodium 143 mmol/L (135-145)
[2024-03-16 04:10] LABS: Hematocrit 34.4 % (37.0-47.0); Hemoglobin 11.1 g/dL (12.0-16.0); Mean Corp Hgb Conc. 32.3 g/dL (33.0-37.0); Mean Corpuscular Hgb 29.6 pg (27.0-31.0); Mean Corpuscular Volume 91.7 fL (81.0-99.0); Red Blood Cell Count 3.75 10^6/uL (4.20-5.40); White Blood Cell Count 8.8 10^3/uL (4.8-10.8)
[2024-03-16 06:02] LABS: Mean Platelet Volume 13.7 fL (7.4-10.4); Platelet Count 88 10^3/uL (130-400)
[2024-03-16] MEDS: PROTONIX PO (07:24)
[2024-03-16] MEDS: HEPARIN 5000 UNITS SC ×3 (07:42→23:26)
--- NOTE | 2024-03-16 07:48 | W.PN.INTV ---
Today's Communication / Plan
Recommendations
Follow lithium level
Follow renal function
Decrease IV fluids
Monitor mental status
Transfer out of ICU-call pulmonary if respiratory issues arise
Assessment
-
54-year-old female from [facility] with a history of depression, hypertension, hyperlipidemia, schizoaffective disorder, bipolar disorder, hypertension, GERD, and CVA who presented with lethargy noted to have lithium toxicity and acute renal
failure-tactical debriefer officer consulted for acute renal failure/emergent dialysis/lithium toxicity and critical care management 03/14/2024.
TERESSA
[place] toxicity- 2.2
Hypernatremia
Toxic metabolic encephalopathy
Leukocytosis
Mild hyperglycemia
Conditions present prior to admission:
Hypertension.
Hyperlipidemia.
Major depression.
Schizoaffective disorder.
Bipolar disorder.
GERD.
CVA.
Plan
Patient was transported to medical intensive care unit for emergent dialysis and this lithium toxic patient-much improved after 3 days in ICU
Supplemental oxygen as needed-weaned to room air
Incentive spirometry if able
Aspiration precautions
Nebulizers if needed-currently not bronchospastic
Nephrology evaluation ongoing-correspondence reviewed
Emergent hemodialysis 03/14 and 03/15/2024
Monitor renal function
Replace electrolytes as needed
Intravenous fluids per nephrology
[place] level now 0.8
Monitor blood sugar
Insulin supplementation if needed
DVT prophylaxis-on subcu heparin
GI prophylaxis-on pantoprazole
Nutrition orally when mental status improves-aspiration precautions speech therapy evaluation if needed
Early mobilization
The patient remains hemodynamically stable after hemodialysis patient can be transferred out of ICU-call pulmonary if respiratory issues arise
Reviewed the patient's pertinent medical records including radiographs, microbiology, laboratory evaluations, and discussion with primary team, consultants, pharmacy, nutrition, physical therapy, case management, charge nurse, critical care
nursing, and respiratory therapy.
Diagnostic data:
Chest x-ray 03/14/2024-NAD
CT head 03/14/2024-old 4 cm right posterior inferior cerebellar infarct
Subjective Dataa
Subjective Data
Date of Service:
Date of Service: March 16, 2024
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
Subjective:
More alert, tolerated hemodialysis, no complaints of shortness of breath, pain
Review of Systems
General: Other (Per HPI)
Objective Data
Data Reviewed
Vital Signs / I&O / Oxygen:
Vital Signs
Temp Pulse Resp BP Pulse Ox
99.5 F 66 12 106/69 93
03/16/24 05:21 03/16/24 06:30 03/16/24 06:30 03/16/24 06:00 03/16/24 07:32
Intake and Output
03/15/24 03/16/24 03/17/24
06:59 06:59 06:59
Intake Total 1767.5 / 1935.0 2602.5 / 2702.5 100 / 100
Output Total 510 / 510 690 / 690 110 / 110
Balance 1257.5 / 1425.0 1912.5 / 2012.5 -10 / -10
SaO2 93
Nasal Cannula flow liters per 1
minute
Physical Exam
General: Respiratory Distress (n) and Comfortable
HEENT: Normocephalic, Anicteric and Moist Mucous Membranes
Cardiovascular: Regular Rhythm
Respiratory: Wheeze (n), Crackles (n), Rhonchi (n), Non-Labored Respirations, Accessory Resp Muscle Use (n) and Stridor (n)
GI: Soft, Non Distended and Non Tender
Neurology: Alert and No Motor Deficits
Skin: Warm, Good Color, Cyanosis (n), Jaundice (n) and Rash (n)
Labs/Micro/Reports
Lab Data
03/16/24 03:32
03/16/24 03:32
Microbiology
03/14/24 09:28 Nasal Swab Influenza Types A & B (BREEZY) - Final
Negative for Influenza A & B, NAAT
Negative results must be combined with clinical observations
and patient history.
Nucleic Acid Amplification test (NAAT)performed on the
[employer] platform.
--- NOTE | 2024-03-16 08:44 | W.PN.NEPH.PH ---
Today's Communication / Plan
-
Follow BMP and lithium level
Half-normal saline to be provided
No dialysis today
Assessment/Plan
-
54 female from [facility] with a medical history of major depressive disorder hyperlipidemia hypertension CVA schizoaffective bipolar chronic pain syndrome GERD who presents with lethargy and poor p.o. intake incidentally found to have
a creatinine of 5.0. CT brain without evidence of acute intracranial abnormalities. Old 4 cm posterior inferior CVA. Mild diffuse cortical atrophy..
Patient found to be in acute kidney injury she is on lithium with a lithium level of 2.2 she is essentially obtunded no response she is oligoanuric
Renal consult for acute kidney injury
Impression:
Acute kidney injury with lithium toxicity level 2.2.
Bipolar disorder schizoaffective.
Hypertensive disorder.
Plan:
Previously called [facility] where she resides and retrieved a phone number of her friend's name is Margarita Pedersen who provided that the patient does not have any family as far she is aware of that she has never met it. She has no POA she
may have 2 stepsons but no contact information.
Patient required acute hemodialysis for altered mental status oligoanuria in the setting of lithium toxicity with a level 2.2.
Last dialysis was on 03/15/2024 creatinine down to 1.7 nonoliguric via Banegas at 675 cc
No dialysis today
Repeat lithium level this morning 0.8
Will change fluids to half-normal saline given hypernatremia and compromised p.o. status
Mentally more awake today
-
-
Date of Service: March 16, 2024
CC / HPI / ROS
-
Chief Complaint:
Acute kidney injury with lithium toxicity
History of Present Illness:
More awake and interactive today
Hemodynamically labile
Last dialysis was performed on 03/15/2024
Review of Systems:
Mental status remains altered
675cc of urine output via Banegas
Labs
-
Labs:
WBC 8.8 10^3/uL (4.8-10.8) 03/16/24 03:32
RBC 3.75 10^6/uL (4.20-5.40) L 03/16/24 03:32
Hgb 11.1 g/dL (12.0-16.0) L 03/16/24 03:32
Hct 34.4 % (37.0-47.0) L 03/16/24 03:32
Plt Count 88 10^3/uL (130-400) L D 03/16/24 03:32
Sodium 143 mmol/L (135-145) 03/16/24 03:32
Potassium 3.7 mmol/L (3.5-5.1) 03/16/24 03:32
Chloride 109 mmol/L (98-107) H 03/16/24 03:32
Carbon Dioxide 25 mmol/L (22-30) 03/16/24 03:32
BUN 19 mg/dl (7-17) H 03/16/24 03:32
Creatinine 1.7 mg/dL (0.6-1.0) H 03/16/24 03:32
eGFR 35.20 03/16/24 03:32
Glucose 98 mg/dl (70-99) 03/16/24 03:32
Calcium 8.2 mg/dl (8.4-10.2) L 03/16/24 03:32
Albumin 4.8 g/dl (3.5-5.0) 03/14/24 09:28
Physical Exam
-
Vital Signs:
Vital Signs
Temp Pulse Resp BP Pulse Ox
99.5 F 66 12 106/69 93
03/16/24 05:21 03/16/24 06:30 03/16/24 06:30 03/16/24 06:00 03/16/24 07:32
Cardiovascular:: Regular rate and rhythm
Respiratory:: Bilateral: CTA
Lung Excursion:: Normal
Abdomen:: Nontender and Soft
Bowel Sounds:: Decreased
Extremity Edema:: None: Bilateral:
Banegas Catheter: Yes
Other Findings::
General: Lethargic but interactive and answers questions appropriately
[2024-03-16] MEDS: 0.45%NACL 1000 IV ×2 (09:11→19:27)
[2024-03-16] MEDS: ZOFRAN 4 MG IV (12:00)
--- NOTE | 2024-03-16 14:15 | W.PN.UPDATE ---
Update Note
Progress Note Update
patient seen chart reviewed. spoke with nursing. initially patient seemed to be more alert and interactive although i still had difficulty understanding the words she spoke some of the time although better than yesterday. i asked her if she were
depressed and she said 'all the time'. she told me she was in pain. then she digressed and she made a number of bizarre comments about floating in the sea being 'f/// by fish'. i thought she was describing a bad dream bc she mentioned it was late
in the afternoon and she had been sleeping. not clear what this represents. she denied she hears voices or gets messages from the radio or tv. i don't hear any paranoia. re depression i suggested to her starting a small dose of zoloft which she
took in the past but believes she was not on it long enough. would begin with 25 mg for now and follow. since she is not hallucinating at this point do not felel she needs antipsychotics. lithium level is 0.8 coming down creatinine much better.
would NOT restart lithium. patient does report she is in a lot of pain. [place] [facility] and assess whether needs pain meds. will follow
--- NOTE | 2024-03-16 14:29 | PTCARENOTE ---
Pt started on regular diet. Just before tray arrived, pt vomited small amount of bile. PRN Zofran given. Pt tolerating nirmal jasper at this time. Pt denies abdominal pain. Abdomen soft and non tender.
Pt more alert today. Pt reports feeling tired. Sleeps on and off. Speech clearer but slightly slurred. Pt is very weak. Unable to light her legs in bed. Turing q2h. Hazel intact. Per Nephrology, will d/d hazel tomorrow if labs remain stable.
--- NOTE | 2024-03-16 15:44 | W.PN.HOSP.TC ---
Today's Communication/Plan
-
Assessment / Plan
Assessment / Plan
NAD, deconditioned
Scleral Anicteric
Dry mucous membranes
No JVD
Temporary hemodialysis catheter in right IJ
CTABL
RRR, S1/S2
Soft, NT, ND, BS+
Warm, Dry
More awake answering questions appropriately knows that she is in the hospital knows the year and the month
Toxic metabolic encephalopathy likely related to lithium toxicity however cannot rule out uremia as a potential cause.
-Now receiving as needed hemodialysis per nephrology
-Repeat lithium level tomorrow
-Psychiatry following hold sedative
-- Cannot resume lithium per psychiatry
-Repeat lithium level in the a.m.
TERESSA
Monitor urinary output
Avoid hypotension nephrotoxins
Follow renal function
Follow nephrology recommendation
Hypokalemia
Replete
Bipolar/schizophrenia
-Hold neuropsychiatric agents
-Hold lithium
-Psychiatry following and started Zoloft
Anticipated Discharge: 24 - 48 hours
Subjective/Interval History
-
Date of Service: March 16, 2024
Seen and examined. No new complaints. No acute overnight events per
Objective Data
-
Labs:
Laboratory Results
03/16/24
03:32
WBC 8.8
Hgb 11.1 L
Hct 34.4 L
Plt Count 88 L D
Sodium 143
Potassium 3.7
Chloride 109 H
Carbon Dioxide 25
BUN 19 H
Creatinine 1.7 H
Glucose 98
Calcium 8.2 L
Vital Signs:
Vital Signs
Temp Pulse Resp BP Pulse Ox
98.9 F 70 10 104/65 94
03/16/24 12:37 03/16/24 12:15 03/16/24 12:15 03/16/24 12:00 03/16/24 11:00
I&O
03/15/24 03/16/24 03/17/24
06:59 06:59 06:59
Intake Total 1767.5 / 1935.0 2602.5 / 2702.5 1000 / 1000
Output Total 510 / 510 690 / 690 325 / 325
Balance 1257.5 / 1425.0 1912.5 / 2011.5 675 / 675
--- NOTE | 2024-03-16 16:35 | PTCARENOTE ---
Patient transferred from ICU. VSS. Report received from ELISABETH Gallegos. Patient NSR on monitor. Call ag within reach.
[2024-03-17] VITALS (8 sets, daily range): BP systolic 122–158; BP diastolic 70–82; PULSE 63–70; O2SAT 95; BMI 34.8
[2024-03-17] MEDS: 0.45%NACL 1000 IV ×2 (05:19→15:26)
[2024-03-17 07:23] LABS: Blood Urea Nitrogen 22 mg/dl (7-17); Calcium 8.4 mg/dl (8.4-10.2); Carbon Dioxide 23 mmol/L (22-30); Chloride 107 mmol/L (98-107); Estimated Creatinine Clearance 39 ml/min; Glucose 109 mg/dl (70-99); Lithium 0.6 mmol/L (0.6-1.2); Sodium 141 mmol/L (135-145)
[2024-03-17 07:31] LABS: Potassium 3.6 mmol/L (3.5-5.1)
[2024-03-17] MEDS: PROTONIX 40 MG PO (09:05)
[2024-03-17] MEDS: ZOLOFT 25 MG PO (09:05)
[2024-03-17] MEDS: HEPARIN 5000 UNITS SC ×2 (09:05→15:26)
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
--- NOTE | 2024-03-17 11:56 | W.PN.NEPH.PH ---
Today's Communication / Plan
-
No need for dialysis monitor renal function through the weekend
Assessment/Plan
-
54 female from [facility] with a medical history of major depressive disorder hyperlipidemia hypertension CVA schizoaffective bipolar chronic pain syndrome GERD who presents with lethargy and poor p.o. intake incidentally found to have
a creatinine of 5.0. CT brain without evidence of acute intracranial abnormalities. Old 4 cm posterior inferior CVA. Mild diffuse cortical atrophy..
Patient found to be in acute kidney injury she is on lithium with a lithium level of 2.2 she is essentially obtunded no response she is oligoanuric
Renal consult for acute kidney injury
Impression:
Acute kidney injury with lithium toxicity level 2.2.
Bipolar disorder schizoaffective.
Hypertensive disorder.
Plan:
Previously called [facility] where she resides and retrieved a phone number of her friend's name is Margaritasaima Pedersen who provided that the patient does not have any family as far she is aware of that she has never met it. She has no POA she
may have 2 stepsons but no contact information.
Patient required acute hemodialysis for altered mental status oligoanuria in the setting of lithium toxicity with a level 2.2.
Last dialysis was on 03/15/2024 creatinine down to 1.7 nonoliguric via Banegas
No dialysis today
Follow creatinine she may be able to stop dialysis altogether will continue to monitor over the weekend and if recovers we will take out the catheter next week
-
-
Date of Service: March 17, 2024
CC / HPI / ROS
-
Chief Complaint:
Acute kidney injury with lithium toxicity
History of Present Illness:
More awake and interactive today
Hemodynamically labile
Last dialysis was performed on 03/15/2024
Review of Systems:
Mental status remains altered
675cc of urine output via Banegas
Labs
-
Labs:
WBC 8.8 10^3/uL (4.8-10.8) 03/16/24 03:32
RBC 3.75 10^6/uL (4.20-5.40) L 03/16/24 03:32
Hgb 11.1 g/dL (12.0-16.0) L 03/16/24 03:32
Hct 34.4 % (37.0-47.0) L 03/16/24 03:32
Plt Count 88 10^3/uL (130-400) L D 03/16/24 03:32
Sodium 141 mmol/L (135-145) 03/17/24 06:23
Potassium 3.6 mmol/L (3.5-5.1) 03/17/24 06:23
Chloride 107 mmol/L (98-107) 03/17/24 06:23
Carbon Dioxide 23 mmol/L (22-30) 03/17/24 06:23
BUN 22 mg/dl (7-17) H 03/17/24 06:23
Creatinine 1.9 mg/dL (0.6-1.0) H 03/17/24 06:23
eGFR 30.80 03/17/24 06:23
Glucose 109 mg/dl (70-99) H 03/17/24 06:23
Calcium 8.4 mg/dl (8.4-10.2) 03/17/24 06:23
Albumin 4.8 g/dl (3.5-5.0) 03/14/24 09:28
Physical Exam
-
Vital Signs:
Vital Signs
Temp Pulse Resp BP Pulse Ox
98.6 F 69 17 131/70 95
03/17/24 11:14 03/17/24 11:14 03/17/24 11:14 03/17/24 11:14 03/17/24 11:14
Cardiovascular:: Regular rate and rhythm
Respiratory:: Bilateral: CTA
Lung Excursion:: Normal
Abdomen:: Nontender and Soft
Bowel Sounds:: Decreased
Extremity Edema:: None: Bilateral:
Banegas Catheter: Yes
Other Findings::
General: Lethargic but interactive and answers questions appropriately
--- NOTE | 2024-03-17 12:24 | W.PN.HOSP.TC ---
Today's Communication/Plan
-
Assessment / Plan
Assessment / Plan
NAD, deconditioned
Scleral Anicteric
Dry mucous membranes
No JVD
Temporary hemodialysis catheter in right IJ
CTABL
RRR, S1/S2
Soft, NT, ND, BS+
Warm, Dry
Lethargic but answering questions of appropriately
Toxic metabolic encephalopathy likely related to lithium toxicity however cannot rule out uremia as a potential cause.
-Now receiving as needed hemodialysis per nephrology
-Psychiatry following hold sedative
-- Cannot resume lithium per psychiatry
-Repeat lithium level in the a.m.
-- Per nephrology may need to continue hemodialysis keep the HD catheter in place until next week and monitor function along with mental status
TERESSA
Monitor urinary output
Avoid hypotension nephrotoxins
Follow renal function
Follow nephrology recommendation
Hypokalemia
Replete
Bipolar/schizophrenia
-Hold neuropsychiatric agents
-Hold lithium
-Psychiatry following and started Zoloft
Anticipated Discharge: > 48 hours
Subjective/Interval History
-
Date of Service: March 17, 2024
Seen and examined. Remains lethargic however answering questions appropriately. Bassam remains in. Renal function improving. Right IJ temp HD line remains in place
Objective Data
-
Labs:
Laboratory Results
03/17/24
06:23
Sodium 141
Potassium 3.6
Chloride 107
Carbon Dioxide 23
BUN 22 H
Creatinine 1.9 H
Glucose 109 H
Calcium 8.4
Vital Signs:
Vital Signs
Temp Pulse Resp BP Pulse Ox
98.6 F 69 17 131/70 95
03/17/24 11:14 03/17/24 11:14 03/17/24 11:14 03/17/24 11:14 03/17/24 11:14
I&O
03/16/24 03/17/24 03/18/24
06:59 06:59 06:59
Intake Total 2602.5 / 2702.5 3680 / 3680
Output Total 690 / 690 1125 / 1125
Balance 1911. / 2011.5 2555 / 2555
--- NOTE | 2024-03-17 13:34 | W.PN.UPDATE ---
Update Note
Progress Note Update
patient seen chart reviewed. discussed w nursing and with cm. the patient is improving although she is still somewhat confused at times. what she is not confused about is her unhappiness at [facility]. she told me it is 'hellacious'. she feels
staff treat her poorly....she said she is usually thirsty and hungry. the issue of thirst is important here. her lithium level on arrival was 2.2 her creatinine was over 5. she was significantly dehydrated giving credence to her complaints. i
asked cm to talk to patient and file a complaint. by contrast patient told me she has been extremely happy with her treatment here. it is like she is 'in heaven'. would continue at this point with zoloft as is. patient does seem depressed to
me. at this point i do not feel we need to restart abilify but will continue to monitor. she has been very cooperative w staff. she does need help w adl's her manual dexterity is limited. will order pt and ot consults.
--- NOTE | 2024-03-17 17:20 | PTOTSP ---
Speech Therapy Evaluation:
Pt exhibits clinical signs of suspected mild oropharyngeal dysphagia, likely chronic in nature related to hx of GERD and CVA, compounded by current mentation with fluctuating DESMOND. No overt s/sx of aspiration across PO trials, however pt presented
with multiple oral stage impairments. 3 oz swallow screen deferred 2/2 inability to self-feed. Pt remains at increased risk of aspiration and related complications given DESMOND and dependence for oral care/feeding. WBC WNL. CXR without evidence of PNA.
Suspect improvement in swallow function as overall medical status improves.
Recommend:
1. IDDSI Level 5 (minced and moist) solids and thin liquids
2. Medications crushed versus whole in puree
3. Only feed when awake/alert
4. Check for oral clearance between bites and following meal
5. 1:1 assistance and supervision with PO intake
6. Aspiration and reflux precautions
7. SENIOR BI ARCHITECT to follow
--- NOTE | 2024-03-18 | PTCARENOTE ---
Change in RN assignment to accommodate possible new admission. Report given to Kelby BARBER.
[2024-03-18] MEDS: HEPARIN 5000 UNITS SC ×4 (00:07→23:01)
--- NOTE | 2024-03-18 00:35 | PTCARENOTE ---
Patient refusing enema. Also patients daughter concerned of patient acting 'loopy'. Advised covering provider.
[2024-03-18 03:57] VITALS: BP 114/67
[2024-03-18 06:00] VITALS: BMI 34.8
[2024-03-18 07:40] VITALS: BP 136/83
[2024-03-18 11:50] VITALS: BP 139/86
[2024-03-18] MEDS: PROTONIX 40 MG PO (12:54)
[2024-03-18] MEDS: ZOLOFT 25 MG PO (12:54)
--- NOTE | 2024-03-18 12:58 | W.PN.HOSP.TC ---
Today's Communication/Plan
-
follow nephrology rec's
Assessment / Plan
Assessment / Plan
NAD, deconditioned
Scleral Anicteric
Dry mucous membranes
No JVD
Temporary hemodialysis catheter in right IJ
CTABL
RRR, S1/S2
Soft, NT, ND, BS+
Warm, Dry
Thinks she is at [facility], knows it is 2024 and
Toxic metabolic encephalopathy likely related to lithium toxicity however cannot rule out uremia as a potential cause.
-Now receiving as needed hemodialysis per nephrology
-Psychiatry following hold sedative
-- Cannot resume lithium per psychiatry
-Repeat lithium level in the a.m.
-- Per nephrology may need to continue hemodialysis keep the HD catheter in place until next week and monitor function along with mental status
TERESSA - Improving
Monitor urinary output
Avoid hypotension nephrotoxins
Follow renal function
Follow nephrology recommendation
Hypokalemia
Replete
Bipolar/schizophrenia
-Hold neuropsychiatric agents
-Hold lithium
-Psychiatry following and started Zoloft
Anticipated Discharge: > 48 hours
Subjective/Interval History
-
Date of Service: March 18, 2024
Seen and examined. No new complaints. No acute overnight events.
Objective Data
-
Vital Signs:
Vital Signs
Temp Pulse Resp BP Pulse Ox
98.0 F 61 16 139/86 96
03/18/24 11:50 03/18/24 11:50 03/18/24 11:50 03/18/24 11:50 03/18/24 11:50
I&O
03/17/24 03/18/24 03/19/24
06:59 06:59 06:59
Intake Total 3680 / 3680 810 / 810
Output Total 1125 / 1125 1950 / 1950
Balance 2555 / 2556 -1140 / -1140
[2024-03-18 15:15] VITALS: BP 131/74
--- NOTE | 2024-03-18 16:01 | W.PN.UPDATE ---
Update Note
Progress Note Update
Pt seen, chart reviewed, pt interviewed at bedside. Remains intermittently confused, at times gets sidetracked during interview or confused by timelines however is overall oriented and logical. Pt reported that she does plan to file a formal
complaint regarding her time at [facility]. She does also admit that it's difficult to gauge how much of her current low mood is depression resuming vs an emotional response to significant environmental stressors+/- medical illness. She is observed
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
stressors.
Abilify 2mg AM, continue zoloft.
No other changes at this time, continue psychiatric management as is otherwise.
Psychiatry will continue to follow.
[2024-03-18 17:13] LABS: Blood Urea Nitrogen 23 mg/dl (7-17); Carbon Dioxide 25 mmol/L (22-30); Chloride 106 mmol/L (98-107); Estimated Creatinine Clearance 42 ml/min; Glucose 112 mg/dl (70-99); Potassium 3.7 mmol/L (3.5-5.1); Sodium 141 mmol/L (135-145); eGFR 32.86
[2024-03-18] MEDS: TYLENOL 650 MG PO (17:20)
--- NOTE | 2024-03-18 18:01 | W.PN.NEPH.PH ---
Today's Communication / Plan
-
maintain Banegas catheter
no CUNY for dialysis
Assessment/Plan
-
54 female from [facility] with a medical history of major depressive disorder hyperlipidemia hypertension CVA schizoaffective bipolar chronic pain syndrome GERD who presents with lethargy and poor p.o. intake incidentally found to have
a creatinine of 5.0. CT brain without evidence of acute intracranial abnormalities. Old 4 cm posterior inferior CVA. Mild diffuse cortical atrophy..
Patient found to be in acute kidney injury she is on lithium with a lithium level of 2.2 she is essentially obtunded no response she is oligoanuric
Renal consult for acute kidney injury
Impression:
Acute kidney injury with lithium toxicity level 2.2.
Bipolar disorder schizoaffective.
Hypertensive disorder.
Plan:
Previously called [facility] where she resides and retrieved a phone number of her friend's name is Margaritasaima Pedersen who provided that the patient does not have any family as far she is aware of that she has never met it. She has no POA she
may have 2 stepsons but no contact information.
Patient required acute hemodialysis for altered mental status oligoanuria in the setting of lithium toxicity with a level 2.2.
Last dialysis was on 03/15/2024 creatinine down to 1.7 nonoliguric via Banegas
No dialysis today
today is a bloodwork stable with creatinine 1.8 for catheter remain she's is making urine.
Report mobility will keep the for catheter in for another 24 hours
if kidney function is the same or better than we will take the dialysis catheter out on Wednesday
-
-
Date of Service: March 18, 2024
CC / HPI / ROS
-
Chief Complaint:
Acute kidney injury with lithium toxicity
History of Present Illness:
More awake and interactive today
Hemodynamically labile
Last dialysis was performed on 03/15/2024
Review of Systems:
Mental status remains altered
675cc of urine output via Banegas
Labs
-
Labs:
WBC 8.8 10^3/uL (4.8-10.8) 03/16/24 03:32
RBC 3.75 10^6/uL (4.20-5.40) L 03/16/24 03:32
Hgb 11.1 g/dL (12.0-16.0) L 03/16/24 03:32
Hct 34.4 % (37.0-47.0) L 03/16/24 03:32
Plt Count 88 10^3/uL (130-400) L D 03/16/24 03:32
Sodium 141 mmol/L (135-145) 03/18/24 16:42
Potassium 3.7 mmol/L (3.5-5.1) 03/18/24 16:42
Chloride 106 mmol/L (98-107) 03/18/24 16:42
Carbon Dioxide 25 mmol/L (22-30) 03/18/24 16:42
BUN 23 mg/dl (7-17) H 03/18/24 16:42
Creatinine 1.8 mg/dL (0.6-1.0) H 03/18/24 16:42
eGFR 32.86 03/18/24 16:42
Glucose 112 mg/dl (70-99) H 03/18/24 16:42
Calcium 9.0 mg/dl (8.4-10.2) 03/18/24 16:42
Albumin 4.8 g/dl (3.5-5.0) 03/14/24 09:28
Physical Exam
-
Vital Signs:
Vital Signs
Temp Pulse Resp BP Pulse Ox
98.2 F 69 16 131/74 94
03/18/24 15:15 03/18/24 15:15 03/18/24 15:15 03/18/24 15:15 03/18/24 15:15
Cardiovascular:: Regular rate and rhythm
Respiratory:: Bilateral: CTA
Lung Excursion:: Normal
Abdomen:: Nontender and Soft
Bowel Sounds:: Decreased
Extremity Edema:: None: Bilateral:
Banegas Catheter: Yes
Other Findings::
General: Lethargic but interactive and answers questions appropriately
[2024-03-18 19:35] VITALS: BP 135/76
[2024-03-18 23:42] VITALS: BP 146/76
[2024-03-19 03:39] VITALS: BP 146/86
[2024-03-19 06:00] VITALS: BMI 34.2
[2024-03-19 07:35] VITALS: BP 137/81
--- NOTE | 2024-03-19 08:34 | W.PN.HOSP.TC ---
Today's Communication/Plan
-
Follow-up final recommendations from nephrology
Will need to have temporary hemodialysis catheter removed if nephrology does not plan on any further hemodialysis
Banegas catheter will need to be removed and trial of void should be completed prior to discharge
Follow-up follow-up with psychiatry for final recommendations
Continue to hold lithium indefinitely
Continue Zoloft
Assessment / Plan
Assessment / Plan
NAD, deconditioned
Scleral Anicteric
Dry mucous membranes
No JVD
Temporary hemodialysis catheter in right IJ
CTABL
RRR, S1/S2
Soft, NT, ND, BS+
Warm, Dry
Thinks she is at [facility], knows it is 2024 and
Toxic metabolic encephalopathy likely related to lithium toxicity however cannot rule out uremia as a potential cause.
-Now receiving as needed hemodialysis per nephrology
-Psychiatry following hold sedative
-- Cannot resume lithium per psychiatry
-- Per nephrology may need to continue hemodialysis keep the HD catheter in place until next week and monitor function along with mental status
-- Improved significantly
TERESSA - Improving
Monitor urinary output
Banegas catheter in place
Avoid hypotension nephrotoxins
Follow renal function
Follow nephrology recommendation
Hypokalemia
Replete
Bipolar/schizophrenia
-Hold neuropsychiatric agents
-Hold lithium
-Psychiatry following and started Zoloft
Anticipated Discharge: 24 - 48 hours
Subjective/Interval History
-
Date of Service: March 19, 2024
Seen and examined. No new complaints. No acute overnight events.
Mental status has significantly improved.
Complaining of some minor back pain and knee pain
Objective Data
-
Labs:
Laboratory Results
03/19/24
08:00
Sodium Pending
Potassium Pending
Chloride Pending
Carbon Dioxide Pending
BUN Pending
Creatinine Pending
Glucose Pending
Calcium Pending
Vital Signs:
Vital Signs
Temp Pulse Resp BP Pulse Ox
98.2 F 55 16 137/81 98
03/19/24 07:35 03/19/24 07:35 03/19/24 07:35 03/19/24 07:35 03/19/24 07:35
I&O
03/18/24 03/19/24 03/20/24
06:59 06:59 06:59
Intake Total 810 / 810 720 / 720
Output Total 1949 / 1949 1750 / 175
Balance -1140 / -1140 -1030 / -1030
[2024-03-19 08:59] LABS: Blood Urea Nitrogen 18 mg/dl (7-17); Calcium 8.5 mg/dl (8.4-10.2); Carbon Dioxide 25 mmol/L (22-30); Chloride 105 mmol/L (98-107); Estimated Creatinine Clearance 41 ml/min; Glucose 123 mg/dl (70-99); Sodium 138 mmol/L (135-145); eGFR 32.86
[2024-03-19 09:06] LABS: Potassium 3.2 mmol/L (3.5-5.1)
[2024-03-19] MEDS: ZOLOFT 25 MG PO (09:51)
[2024-03-19] MEDS: PROTONIX 40 MG PO (09:51)
[2024-03-19] MEDS: HEPARIN 5000 UNITS SC ×2 (09:51→16:13)
[2024-03-19] MEDS: ABILIFY 2 MG PO (09:51)
[2024-03-19] MEDS: KCL 40 MEQ PO ×2 (09:56→14:08)
[2024-03-19 11:20] VITALS: BP 141/91
--- NOTE | 2024-03-19 14:13 | W.PN.NEPH.PH ---
Today's Communication / Plan
-
remove dialysis catheter Wednesday and discontinue Banegas catheter
Assessment/Plan
-
54 female from [facility] with a medical history of major depressive disorder hyperlipidemia hypertension CVA schizoaffective bipolar chronic pain syndrome GERD who presents with lethargy and poor p.o. intake incidentally found to have
a creatinine of 5.0. CT brain without evidence of acute intracranial abnormalities. Old 4 cm posterior inferior CVA. Mild diffuse cortical atrophy..
Patient found to be in acute kidney injury she is on lithium with a lithium level of 2.2 she is essentially obtunded no response she is oligoanuric
Renal consult for acute kidney injury
Impression:
Acute kidney injury with lithium toxicity level 2.2.
Bipolar disorder schizoaffective.
Hypertensive disorder.
Plan:
Previously called [facility] where she resides and retrieved a phone number of her friend's name is Margaritasaima Pedersen who provided that the patient does not have any family as far she is aware of that she has never met it. She has no POA she
may have 2 stepsons but no contact information.
Patient required acute hemodialysis for altered mental status oligoanuria in the setting of lithium toxicity with a level 2.2.
Last dialysis was on 03/15/2024 creatinine down to 1.7 nonoliguric via Banegas
No dialysis today
today is a bloodwork stable with creatinine 1.8
good urine output
okay do remove dialysis catheter on Wednesday
okay to discontinue Banegas catheter
-
-
Date of Service: March 19, 2024
CC / HPI / ROS
-
Chief Complaint:
Acute kidney injury with lithium toxicity
History of Present Illness:
More awake and interactive today
Hemodynamically labile
Last dialysis was performed on 03/15/2024
Review of Systems:
mental status back to baseline
Labs
-
Labs:
WBC 8.8 10^3/uL (4.8-10.8) 03/16/24 03:32
RBC 3.75 10^6/uL (4.20-5.40) L 03/16/24 03:32
Hgb 11.1 g/dL (12.0-16.0) L 03/16/24 03:32
Hct 34.4 % (37.0-47.0) L 03/16/24 03:32
Plt Count 88 10^3/uL (130-400) L D 03/16/24 03:32
Sodium 138 mmol/L (135-145) 03/19/24 08:00
Potassium 3.2 mmol/L (3.5-5.1) L 03/19/24 08:00
Chloride 105 mmol/L (98-107) 03/19/24 08:00
Carbon Dioxide 25 mmol/L (22-30) 03/19/24 08:00
BUN 18 mg/dl (7-17) H 03/19/24 08:00
Creatinine 1.8 mg/dL (0.6-1.0) H 03/19/24 08:00
eGFR 32.86 03/19/24 08:00
Glucose 123 mg/dl (70-99) H 03/19/24 08:00
Calcium 8.5 mg/dl (8.4-10.2) 03/19/24 08:00
Albumin 4.8 g/dl (3.5-5.0) 03/14/24 09:28
Physical Exam
-
Vital Signs:
Vital Signs
Temp Pulse Resp BP Pulse Ox
98.3 F 64 16 141/91 98
03/19/24 11:20 03/19/24 11:20 03/19/24 11:20 03/19/24 11:20 03/19/24 11:20
Cardiovascular:: Regular rate and rhythm
Respiratory:: Bilateral: CTA
Lung Excursion:: Normal
Abdomen:: Nontender and Soft
Bowel Sounds:: Decreased
Extremity Edema:: None: Bilateral:
Banegas Catheter: Yes
Other Findings::
General: Lethargic but interactive and answers questions appropriately
[2024-03-19 15:22] VITALS: BP 156/90
--- NOTE | 2024-03-19 15:22 | W.PN.UPDATE ---
Update Note
Progress Note Update
Pt seen at bedside, chart reviewed. Continues to improve in mentation. Plan is to remove dialysis catheter tomorrow.
Pt sleeping today on exam, did not rouse excessively so as to allow rest given that there are no significant psychiatric changes indicated at this time.
Continue psychiatric management as is, no changes indicated in this time. Would not restart lithium at this time, if mood starts becoming disrupted can adjust abilify dose to manage given significant renal risk of resuming lithium.
Psychiatry will continue to follow.
[2024-03-19] MEDS: SENOKOT-S 1 TABLET PO (16:13)
--- NOTE | 2024-03-19 17:50 | PTCARENOTE ---
pt noted to keep trying to eat her food but unable to place it in her mouth, and spilling it on herself. Nurse approached patient and offered to help with eating but she refused 'stating that she is not a 1 year old to need help with it'. Nurse
explained that the goal is to help her eat, and the nutritioned that she needs, but patient refused help each time that she was approached.
[2024-03-19 19:35] VITALS: BP 139/91
[2024-03-19 23:30] VITALS: BP 147/98
[2024-03-20] VITALS (7 sets, daily range): BP systolic 118–136; BP diastolic 73–90; PULSE 63; O2SAT 98
[2024-03-20] MEDS: HEPARIN 5000 UNITS SC ×4 (00:26→23:04)
--- NOTE | 2024-03-20 08:06 | W.PN.HOSP.TC ---
Today's Communication/Plan
-
pendign labs and HD catheter removal, then d/c
Assessment / Plan
Assessment / Plan
54yo F with PMHx of HLD, HTN, CVA, chronic pain syndrome, GERD, Bipolar vs schizoaffective s/o brought from [facility] with lethargy and poor oral intake, found TERESSA and elevated [place] level, managed for lithium-induced TERESSA, started on HD as per
nephrology, plan to stop HD as Cr improved and remained stable since 03/15/24, patient remained non-oliguric on Banegas, that was removed on 03/19/24
A/P:
#TERESSA with elevated lithium level and toxic metabolic encelophathy
#Hypokalemia
Nephro follows
Passed TOV
follow Cr, electrolytes and correct as needed
Renal US unremarkable
#Bipolar d/o vs Schyzoaffective d/o
Psych follows: hold lithium, increase Abilify if poor mood control
#Ambulatory deficiency
from rehab
PT/OT recommend return to rehab
#Essential HTN
#GERD
hold Lasix, BP not significantly elevated, start low dose amlodipine
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
Unclear why not on ASA, statin - initiated
#Chronic pain syndrome with L neck pain
cont same meds
no collection felt on exam, pain not related to swallowing or chewing, suspect musculoskeletal
DVT ppx hep
FUll code
I have spent at least 59min reviewing chart, test results, communication with consultants and direct patient care
Anticipated Discharge: Within 24 hours
Subjective/Interval History
-
Date of Service: March 20, 2024
Objective Data
-
Labs:
Laboratory Results
03/20/24
07:45
Sodium Pending
Potassium Pending
Chloride Pending
Carbon Dioxide Pending
BUN Pending
Creatinine Pending
Glucose Pending
Calcium Pending
Vital Signs:
Vital Signs
Temp Pulse Resp BP Pulse Ox
97.6 F 58 16 123/75 97
03/20/24 03:10 03/20/24 03:10 03/20/24 03:10 03/20/24 03:10 03/20/24 03:10
I&O
03/19/24 03/20/24 03/21/24
06:59 06:59 06:59
Intake Total 720 / 720 600 / 600
Output Total 1750 / 1750 1675 / 1675
Balance -1030 / -1030 -1075 / -1075
Review of Systems
-
History Source: Patient
All other systems: Reviewed and negative
Musculoskeletal: Reports Other (L neck pain)
Physical Exam
-
General: No Apparent Distress
HEENT: Normocephalic, Atraumatic, Moist Mucous Membranes and Neck Non Tender (L sternocleidomastoids tenderness ); Negative Thrush or Pharyngeal Erythema
Respiratory: Clear to Auscultation
Cardiac: Regular Rhythm
Neuro: Awake, Alert, Oriented and AO x 3
Psych: Calm
[2024-03-20 08:53] LABS: Blood Urea Nitrogen 17 mg/dl (7-17); Calcium 8.6 mg/dl (8.4-10.2); Carbon Dioxide 23 mmol/L (22-30); Chloride 105 mmol/L (98-107); Estimated Creatinine Clearance 44 ml/min; Glucose 115 mg/dl (70-99); Sodium 136 mmol/L (135-145)
[2024-03-20 09:06] LABS: Potassium 4.3 mmol/L (3.5-5.1)
[2024-03-20] MEDS: PROTONIX 40 MG PO (09:11)
[2024-03-20] MEDS: ABILIFY 2 MG PO (09:11)
[2024-03-20] MEDS: ZOLOFT 25 MG PO (09:11)
[2024-03-20] MEDS: TYLENOL 650 MG PO ×2 (10:43→22:30)
--- NOTE | 2024-03-20 14:11 | CM ---
Reviewed the chart notes. [facility] offices closed in honor of [place] Day. CM continues to be available to patient/family and is monitoring medical plan for needs at discharge.
Plan: Back to [facility] when cleared. Patient is considered a LT resident of the facility.
--- NOTE | 2024-03-20 14:33 | W.PN.NEPH.PH ---
Today's Communication / Plan
-
follow BMP
Assessment/Plan
-
54 female from [facility] with a medical history of major depressive disorder hyperlipidemia hypertension CVA schizoaffective bipolar chronic pain syndrome GERD who presents with lethargy and poor p.o. intake incidentally found to have
a creatinine of 5.0. CT brain without evidence of acute intracranial abnormalities. Old 4 cm posterior inferior CVA. Mild diffuse cortical atrophy..
Patient found to be in acute kidney injury she is on lithium with a lithium level of 2.2 she is essentially obtunded no response she is oligoanuric
Renal consult for acute kidney injury
Impression:
Acute kidney injury with lithium toxicity level 2.2.
Bipolar disorder schizoaffective.
Hypertensive disorder.
Plan:
no further HD needed
remove CVC
follow BMP
no more lithium
-
-
Date of Service: March 20, 2024
CC / HPI / ROS
-
Chief Complaint:
Acute kidney injury with lithium toxicity
History of Present Illness:
BP stable
TERESSA/Cr down to 1.7
Last dialysis was performed on 03/15/2024
Review of Systems:
no CP/SOB
Labs
-
Labs:
WBC 8.8 10^3/uL (4.8-10.8) 03/16/24 03:32
RBC 3.75 10^6/uL (4.20-5.40) L 03/16/24 03:32
Hgb 11.1 g/dL (12.0-16.0) L 03/16/24 03:32
Hct 34.4 % (37.0-47.0) L 03/16/24 03:32
Plt Count 88 10^3/uL (130-400) L D 03/16/24 03:32
Sodium 136 mmol/L (135-145) 03/20/24 07:45
Potassium 4.3 mmol/L (3.5-5.1) D 03/20/24 07:45
Chloride 105 mmol/L (98-107) 03/20/24 07:45
Carbon Dioxide 23 mmol/L (22-30) 03/20/24 07:45
BUN 17 mg/dl (7-17) 03/20/24 07:45
Creatinine 1.7 mg/dL (0.6-1.0) H 03/20/24 07:45
eGFR 35.20 03/20/24 07:45
Glucose 115 mg/dl (70-99) H 03/20/24 07:45
Calcium 8.6 mg/dl (8.4-10.2) 03/20/24 07:45
Albumin 4.8 g/dl (3.5-5.0) 03/14/24 09:28
Physical Exam
-
Vital Signs:
Vital Signs
Temp Pulse Resp BP Pulse Ox
97.7 F 69 18 122/90 99
03/20/24 11:04 03/20/24 11:04 03/20/24 11:04 03/20/24 11:04 03/20/24 11:04
Cardiovascular:: Regular rate and rhythm
Respiratory:: Bilateral: CTA
Lung Excursion:: Normal
Abdomen:: Nontender and Soft
Bowel Sounds:: Normal
Extremity Edema:: None: Bilateral:
[2024-03-20] MEDS: ZOFRAN 4 MG IV (15:05)
--- NOTE | 2024-03-20 16:27 | PTCARENOTE ---
pt tolerated PT OOB to chair. x2 assist back to bed. No change in assessment. HD cath removed. pt tolerated procedure well. CB in reach
[2024-03-20] MEDS: LIPITOR 40 MG PO (17:32)
[2024-03-21 03:37] VITALS: BP 106/67
[2024-03-21 06:00] VITALS: BMI 34.2
[2024-03-21 07:23] LABS: Blood Urea Nitrogen 21 mg/dl (7-17); Calcium 8.3 mg/dl (8.4-10.2); Carbon Dioxide 23 mmol/L (22-30); Chloride 101 mmol/L (98-107); Estimated Creatinine Clearance 41 ml/min; Glucose 107 mg/dl (70-99); Potassium 4.1 mmol/L (3.5-5.1); Sodium 135 mmol/L (135-145); eGFR 32.86
[2024-03-21 07:50] VITALS: BP 120/77
[2024-03-21] MEDS: ABILIFY 2 MG PO (08:30)
[2024-03-21] MEDS: PROTONIX 40 MG PO (08:30)
[2024-03-21] MEDS: HEPARIN 5000 UNITS SC ×3 (08:31→23:06)
[2024-03-21] MEDS: ZOLOFT 25 MG PO (08:31)
[2024-03-21] MEDS: LOW STRENGTH ASPIRIN 81 MG PO (08:31)
--- NOTE | 2024-03-21 08:54 | W.PN.HOSP.TC ---
Today's Communication/Plan
-
dc
Assessment / Plan
Assessment / Plan
54yo F with PMHx of HLD, HTN, CVA, chronic pain syndrome, GERD, Bipolar vs schizoaffective s/o brought from [facility] with lethargy and poor oral intake, found TERESSA and elevated [place] level, managed for lithium-induced TERESSA, started on HD as per
nephrology, plan to stop HD as Cr improved and remained stable since 03/15/24, patient remained non-oliguric on Banegas, that was removed on 03/19/24. Cr stabilized at 1.7-1.8. Outpatient BMP advised. Medically stable for d/c
A/P:
#TERESSA with elevated lithium level and toxic metabolic encelophathy
#Hypokalemia
Nephro follows
Passed TOV
follow Cr, electrolytes and correct as needed
Renal US unremarkable
#Bipolar d/o vs Schizoaffective d/o
Psych follows: hold lithium, increase Abilify if poor mood control
#Ambulatory deficiency
from rehab
PT/OT recommend return to rehab
#Essential HTN
#GERD
hold Lasix, BP not significantly elevated, start low dose amlodipine
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
Unclear why not on ASA, statin - initiated
#Chronic pain syndrome with L neck pain
cont same meds
no collection felt on exam, pain not related to swallowing or chewing, suspect musculoskeletal
DVT ppx hep
FUll code
I have spent at least 39min reviewing chart, test results, communication with consultants and direct patient care
Anticipated Discharge: Today
Subjective/Interval History
-
Date of Service: March 21, 2024
Objective Data
-
Labs:
Laboratory Results
03/21/24
06:08
Sodium 135
Potassium 4.1
Chloride 101
Carbon Dioxide 23
BUN 21 H
Creatinine 1.8 H
Glucose 107 H
Calcium 8.3 L
Vital Signs:
Vital Signs
Temp Pulse Resp BP Pulse Ox
97.9 F 61 18 120/77 93
03/21/24 07:50 03/21/24 07:50 03/21/24 07:50 03/21/24 07:50 03/21/24 07:50
I&O
03/20/24 03/21/24 03/22/24
06:59 06:59 06:59
Intake Total 600 / 600 1200 / 1200
Output Total 1675 / 1675
Balance -1075 / -1075 1200 / 1200
Review of Systems
-
History Source: Patient
All other systems: Reviewed and negative
Physical Exam
-
General: No Apparent Distress
HEENT: Normocephalic
Respiratory: Clear to Auscultation
GI: Soft, Nontender and Nondistended
Neuro: Awake, Alert, Oriented and AO x 3
Psych: Calm
--- NOTE | 2024-03-21 08:59 | W.DCSUMMARY ---
Addendum entered and electronically signed by Vince Wood MD 03/24/24 07:56:
#Otitis media
Original Note:
Discharge Summary
Discharge Data
Date of Admission: 03/14/24
Date of Discharge: 03/21/24
-
Pending Results: No
Hospital Course
54yo F with PMHx of HLD, HTN, CVA, chronic pain syndrome, GERD, Bipolar vs schizoaffective s/o brought from [facility] with lethargy and poor oral intake, found TERESSA and elevated [place] level, managed for lithium-induced TERESSA, started on HD as per
nephrology, plan to stop HD as Cr improved and remained stable since 03/15/24, patient remained non-oliguric on Banegas, that was removed on 03/19/24. Cr stabilized at 1.7-1.8. Outpatient BMP advised. Medically stable for d/c
I have spent at least 39min reviewing chart, test results, communication with consultants and direct patient care
Patient was managed for:
#TERESSA with elevated lithium level and toxic metabolic encelophathy
#Hypokalemia
#Bipolar d/o vs Schizoaffective d/o
#Ambulatory deficiency
#Essential HTN
#GERD
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
#Chronic pain syndrome with L neck pain
Discharge Plan
-
Patient Disposition: Assisted/SNF
Discharge Diagnosis/Procedures: TERESSA
Diet: Low Sodium
Activity: As tolerated
Driving Restrictions: As prior to admission
Blood Work: BMP in 1 week with family doctor
Referrals:
Keo Mtz DO [Family Provider] -
Ben Jacome DO [Non-Admitting Privileges] - in one to two weeks
Prescriptions:
New
atorvastatin 40 mg Tablet
40 mg PO QPM Qty: 30 0RF
sertraline 25 mg Tablet
25 mg PO DAILY Qty: 30 0RF
aspirin 81 mg Tablet,Chewable
81 mg PO DAILY Qty: 30 0RF
aripiprazole 2 mg Tablet
2 mg PO DAILY Qty: 30 0RF
Continued
acetaminophen [Tylenol] 325 mg Tablet
650 mg PO Q6HPRN PRN (Reason: mild pain)
ondansetron HCl 8 mg Tablet
8 mg PO Q8HPRN PRN (Reason: nausea)
magnesium hydroxide [Milk of Magnesia] 400 mg/5 mL Suspension
2,400 mg PO [id number] PRN (Reason: constipation)
bisacodyl [Dulcolax (bisacodyl)] 10 mg Suppository
10 mg UT DAILYPRN PRN (Reason: if no bm aftr mom)
pantoprazole [Protonix] 40 mg Tablet,Delayed Release (Dr/Ec)
40 mg PO DAILY
Fleet Enema 19-7 gram/118 mL Enema
118 ml UT DAILYPRN PRN (Reason: if no bm aftr dulcolax)
nystatin 100,000 unit/gram Powder
1 applic TOPICAL BID
Rx Instructions:
abd folds, under breast, groin
buprenorphine HCl 600 mcg Film
600 mcg BUCCAL Q12H
Discontinued
lithium carbonate 300 mg Capsule
300 mg PO HS
furosemide [Lasix] 20 mg Tablet
10 mg PO DAILY
aripiprazole 10 mg Tablet
10 mg PO DAILY
duloxetine [Cymbalta] 60 mg Capsule,Delayed Release(Dr/Ec)
60 mg PO DAILY
Discharge Orders:
Discharge Patient (As Directed); Ordered 03/21/24
Ordered By: Vince Wood
Discharge Date and Time
Print Language: LITHUANIAN
[2024-03-21] MEDS: DULCOLAX 10 MG RECTAL (10:21)
[2024-03-21 11:17] VITALS: BP 129/71
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
[2024-03-21] MEDS: TYLENOL 650 MG PO ×2 (12:09→20:47)
[2024-03-21] MEDS: ZOFRAN 4 MG IV ×2 (13:39→20:29)
[2024-03-21 15:45] VITALS: BP 116/73
[2024-03-21] MEDS: MORPHINE SULFATE 1 MG IV ×2 (16:12→22:17)
[2024-03-21] MEDS: LIPITOR 40 MG PO (17:24)
--- NOTE | 2024-03-21 17:48 | PTCARENOTE ---
Kelly from [facility] called to find out of the day pt is being discharged, this nurse informed her that there is a Discharge order but not sure of the day. Kelly will pass on th information to the investiagtor and someone will follow
within 72 hours.
[2024-03-21] MEDS: MYLICON 80 MG PO (20:47)
[2024-03-21 23:49] VITALS: BP 131/77
--- NOTE | 2024-03-22 02:31 | DOWNTIME ---
There was a [employer] Soldering Machine Operator Downtime on 03/22/2024 from 0100 to 03/22/2023 at 0205 . Downtime documentation of patient's care, including medication administrations, has been reconciled in the electronic record per guidelines. Refer to the
patient's paper chart under the miscellaneous tab to see printed paper medication records and downtime forms.
[2024-03-22 05:43] VITALS: BMI 33.9
[2024-03-22 07:31] VITALS: BP 133/70
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
[2024-03-22] MEDS: ZOLOFT 25 MG PO (09:10)
[2024-03-22] MEDS: HEPARIN 5000 UNITS SC ×3 (09:10→23:18)
[2024-03-22] MEDS: PROTONIX 40 MG PO (09:10)
[2024-03-22] MEDS: ABILIFY 2 MG PO (09:10)
[2024-03-22] MEDS: LOW STRENGTH ASPIRIN 81 MG PO (09:10)
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
--- NOTE | 2024-03-22 10:56 | PTOTSP ---
Speech Pathology
Dysphagia Follow Up
Impression:
At most mild acute oropharyngeal dysphagia 2/2 AMS, improving.
Recommend:
1. Trial diet upgrade Regular textures (IDDSI 7), thin liquids (IDDSI 0)
2. Meds as tolerated
3. Aspiration precautions: slow rate, small bites, partial supervision
4. FOOD AND BEVERAGE CHECKER service to follow up briefly to assess diet level tolerance
[2024-03-22 11:45] VITALS: BMI 33.9
[2024-03-22 11:46] VITALS: BP 118/71; BP 123/76; BP 127/81; PULSE 69; PULSE 74; PULSE 93; O2SAT 98
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
[2024-03-22 14:33] VITALS: BP 118/71; BP 123/76; BP 127/81
--- NOTE | 2024-03-22 15:14 | W.PN.NEPH.PH ---
Today's Communication / Plan
-
no change stable for discharge from a renal standpoint
Assessment/Plan
-
54 female from [facility] with a medical history of major depressive disorder hyperlipidemia hypertension CVA schizoaffective bipolar chronic pain syndrome GERD who presents with lethargy and poor p.o. intake incidentally found to have
a creatinine of 5.0. CT brain without evidence of acute intracranial abnormalities. Old 4 cm posterior inferior CVA. Mild diffuse cortical atrophy..
Patient found to be in acute kidney injury she is on lithium with a lithium level of 2.2 she is essentially obtunded no response she is oligoanuric
Renal consult for acute kidney injury
Impression:
Acute kidney injury with lithium toxicity level 2.2.
Bipolar disorder schizoaffective.
Hypertensive disorder.
Plan:
no further HD needed
remove CVC
follow BMP
no more lithium
Creatinine remains stable
-
-
Date of Service: March 22, 2024
CC / HPI / ROS
-
Chief Complaint:
Acute kidney injury with lithium toxicity
History of Present Illness:
BP stable
TERESSA/Cr down to 1.7-1.8 which appears to be her baseline
Last dialysis was performed on 03/15/2024
Review of Systems:
no CP/SOB
Labs
-
Labs:
WBC 8.8 10^3/uL (4.8-10.8) 03/16/24 03:32
RBC 3.75 10^6/uL (4.20-5.40) L 03/16/24 03:32
Hgb 11.1 g/dL (12.0-16.0) L 03/16/24 03:32
Hct 34.4 % (37.0-47.0) L 03/16/24 03:32
Plt Count 88 10^3/uL (130-400) L D 03/16/24 03:32
Sodium 135 mmol/L (135-145) 03/21/24 06:08
Potassium 4.1 mmol/L (3.5-5.1) 03/21/24 06:08
Chloride 101 mmol/L (98-107) 03/21/24 06:08
Carbon Dioxide 23 mmol/L (22-30) 03/21/24 06:08
BUN 21 mg/dl (7-17) H 03/21/24 06:08
Creatinine 1.8 mg/dL (0.6-1.0) H 03/21/24 06:08
eGFR 32.86 03/21/24 06:08
Glucose 107 mg/dl (70-99) H 03/21/24 06:08
Calcium 8.3 mg/dl (8.4-10.2) L 03/21/24 06:08
Albumin 4.8 g/dl (3.5-5.0) 03/14/24 09:28
Physical Exam
-
Vital Signs:
Vital Signs
Temp Pulse Resp BP Pulse Ox
97.8 F 62 18 133/70 98
03/22/24 07:31 03/22/24 07:31 03/22/24 07:31 03/22/24 07:31 03/22/24 07:31
Cardiovascular:: Regular rate and rhythm
Respiratory:: Bilateral: CTA
Lung Excursion:: Normal
Abdomen:: Nontender and Soft
Bowel Sounds:: Normal
Extremity Edema:: None: Bilateral:
[2024-03-22 15:30] VITALS: BP 112/74
[2024-03-22] MEDS: LIPITOR 40 MG PO (18:03)
[2024-03-22] MEDS: MORPHINE SULFATE 1 MG IV (18:11)
[2024-03-22 23:14] VITALS: BP 124/74
[2024-03-23 04:43] VITALS: BMI 34.4
[2024-03-23] MEDS: MORPHINE SULFATE 1 MG IV ×2 (04:46→17:28)
[2024-03-23 07:58] VITALS: BP 114/78
[2024-03-23] MEDS: ABILIFY 2 MG PO (08:47)
[2024-03-23] MEDS: HEPARIN 5000 UNITS SC ×2 (08:47→17:00)
[2024-03-23] MEDS: PROTONIX 40 MG PO (08:47)
[2024-03-23] MEDS: ZOLOFT 25 MG PO (08:47)
[2024-03-23] MEDS: LOW STRENGTH ASPIRIN 81 MG PO (08:47)
[2024-03-23 11:46] VITALS: BP 101/62
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
--- NOTE | 2024-03-23 13:26 | CM ---
computer operations manager spoke with [facility] on Aging [phone] & she stated patient is able to return to facility.
Discussed with the patient and she stated she did not wish to return to [facility].
tt hospitalist
Left message for Revamo VALLES at [facility].
Alternative placement will be discussed.
--- NOTE | 2024-03-23 13:27 | W.PN.UPDATE ---
Update Note
Progress Note Update
Discussed with CM - still searching for facility as patient declined to go back to [facility]. CM will inform when bed available, so D/C order can be placed
--- NOTE | 2024-03-23 14:25 | CON.MD ---
Consultation - Medical
-
patient seen chart reviewed. patient does continue to improve psychiatrically. she is able to talk about what happened . she is adamant she will not go back to [facility] and i would support that given what happened to her. i know what the area
office on aging has decided (that her complaints are unfounded) but i am not in agreement with them and discussed this with patient. the patient's lithium toxicity and a creatinine that went to 5+ was in my opinion something that should have been
noticed before it got to this point. patient described significant tremor that had developed which is a cardinal sign of lithium toxicity. she was extremely thirsty and reports she was always asking for water which was a long time in coming. this
should have prompted them to take notice and at least do a lithium level. no changes made in her current meds. will follow
[2024-03-23 15:13] VITALS: BP 114/70
[2024-03-23] MEDS: LIPITOR 40 MG PO (17:22)
[2024-03-23 23:16] VITALS: BP 119/67
[2024-03-24] MEDS: HEPARIN 5000 UNITS SC ×3 (00:10→16:56)
[2024-03-24 05:42] VITALS: BMI 34.3
[2024-03-24 07:40] VITALS: BP 122/79
--- NOTE | 2024-03-24 07:54 | W.PN.HOSP.TC ---
Today's Communication/Plan
-
started Augmentin and ear drops
Assessment / Plan
Assessment / Plan
54yo F with PMHx of HLD, HTN, CVA, chronic pain syndrome, GERD, Bipolar vs schizoaffective s/o brought from [facility] with lethargy and poor oral intake, found TERESSA and elevated [place] level, managed for lithium-induced TERESSA, started on HD as per
nephrology, plan to stop HD as Cr improved and remained stable since 03/15/24, patient remained non-oliguric on [place], that was removed on 03/19/24. Cr stabilized at 1.7-1.8. Outpatient BMP advised. Medically stable for d/c
A/P:
#TERESSA with elevated lithium level and toxic metabolic encelophathy
#Hypokalemia
Nephro follows
Passed TOV
follow Cr, electrolytes and correct as needed
Renal US unremarkable
#L otitis media
Drops for 7 dats
Augmentin
#Bipolar d/o vs Schizoaffective d/o
Psych follows: hold lithium, increase Abilify if poor mood control
#Ambulatory deficiency
from rehab
PT/OT recommend return to rehab
#Essential HTN
#GERD
hold Lasix, BP not significantly elevated, start low dose amlodipine
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
Unclear why not on ASA, statin - initiated
#Chronic pain syndrome with L neck pain
cont same meds
no collection felt on exam, pain not related to swallowing or chewing, suspect musculoskeletal
DVT ppx hep
FUll code
I have spent at least 39min reviewing chart, test results, communication with consultants and direct patient care
Anticipated Discharge: Within 24 hours
Subjective/Interval History
-
Date of Service: March 24, 2024
Objective Data
-
Vital Signs:
Vital Signs
Temp Pulse Resp BP Pulse Ox
98.6 F 75 18 119/67 98
03/23/24 23:16 03/23/24 23:16 03/23/24 23:16 03/23/24 23:16 03/23/24 23:16
I&O
03/23/24 03/24/24 03/25/24
06:59 06:59 06:59
Intake Total 1200 / 1200 2119
Balance 1200 / 1200 2119
Review of Systems
-
History Source: Patient
All other systems: Reviewed and negative
EENT: Reports Other (L ear pain and decreased hearing)
Physical Exam
-
General: Well Developed, Well Nourished and No Apparent Distress
HEENT: Hearing Impaired (L ear) and Other (no redness, but pain on palpatient L ear lobe)
Cardiac: Regular Rhythm
Neuro: Awake, Alert, Oriented and AO x 3
Psych: Calm
[2024-03-24] MEDS: PROTONIX 40 MG PO (08:31)
[2024-03-24] MEDS: ZOLOFT 25 MG PO (08:31)
[2024-03-24] MEDS: CORTISPORIN OTIC SUSPENSION 4 DROP OTIC ×2 (08:31→16:56)
[2024-03-24] MEDS: ABILIFY 2 MG PO (08:31)
[2024-03-24] MEDS: LOW STRENGTH ASPIRIN 81 MG PO (08:31)
[2024-03-24] MEDS: AUGMENTIN 875 MG/125 MG 1 TABLET PO ×2 (08:34→20:56)
--- NOTE | 2024-03-24 11:22 | W.PN.NEPH.PH ---
Today's Communication / Plan
-
sign off
Assessment/Plan
-
54 female from [facility] with a medical history of major depressive disorder hyperlipidemia hypertension CVA schizoaffective bipolar chronic pain syndrome GERD who presents with lethargy and poor p.o. intake incidentally found to have
a creatinine of 5.0. CT brain without evidence of acute intracranial abnormalities. Old 4 cm posterior inferior CVA. Mild diffuse cortical atrophy..
Patient found to be in acute kidney injury she is on lithium with a lithium level of 2.2 she is essentially obtunded no response she is oligoanuric
Renal consult for acute kidney injury
Impression:
Acute kidney injury with lithium toxicity level 2.2.
Bipolar disorder schizoaffective.
Hypertensive disorder.
Plan:
no further HD needed
will sign off
-
-
Date of Service: March 24, 2024
CC / HPI / ROS
-
Chief Complaint:
Acute kidney injury with lithium toxicity
History of Present Illness:
BP stable
TERESSA/Cr down to 1.7-1.8 03/21, which appears to be her baseline
Last dialysis was performed on 03/15/2024
Review of Systems:
no CP/SOB
Labs
-
Labs:
WBC 8.8 10^3/uL (4.8-10.8) 03/16/24 03:32
RBC 3.75 10^6/uL (4.20-5.40) L 03/16/24 03:32
Hgb 11.1 g/dL (12.0-16.0) L 03/16/24 03:32
Hct 34.4 % (37.0-47.0) L 03/16/24 03:32
Plt Count 88 10^3/uL (130-400) L D 03/16/24 03:32
Sodium 135 mmol/L (135-145) 03/21/24 06:08
Potassium 4.1 mmol/L (3.5-5.1) 03/21/24 06:08
Chloride 101 mmol/L (98-107) 03/21/24 06:08
Carbon Dioxide 23 mmol/L (22-30) 03/21/24 06:08
BUN 21 mg/dl (7-17) H 03/21/24 06:08
Creatinine 1.8 mg/dL (0.6-1.0) H 03/21/24 06:08
eGFR 32.86 03/21/24 06:08
Glucose 107 mg/dl (70-99) H 03/21/24 06:08
Calcium 8.3 mg/dl (8.4-10.2) L 03/21/24 06:08
Albumin 4.8 g/dl (3.5-5.0) 03/14/24 09:28
Physical Exam
-
Vital Signs:
Vital Signs
Temp Pulse Resp BP Pulse Ox
98.3 F 74 16 122/79 96
03/24/24 07:40 03/24/24 07:40 03/24/24 07:40 03/24/24 07:40 03/24/24 07:40
--- NOTE | 2024-03-24 12:08 | W.PN.UPDATE ---
Update Note
Progress Note Update
patient seen chart reviewed. discussed w nursing and cm. the patient is in a lot of pain from otitis externa. dr de la cruz has addressed. ordered tylenol 650 stat if it helps can write a standing order. nsaids might be more effective but gfr is
32.6 and need to be careful w this. she told me she had a morphine prn...not appropriate for this and will dc. patient says she is more depressed though not suicidal as she ponders her future. she will not return to [facility]. there is a ?
about the home she owned. she does not know what has happened to it since she left. if she has a home still and it could be sold she would be able perhaps to be in a better facility than [facility]. i do not know how to help her with this.
discussed w cm who suggested area office on aging but they have not been particulary helpful to her. i also considered getting her involved w [facility] where she could have a cm but she has no phone to do virtual visits . will increase zoloft to 50 .
will continue to follow
[2024-03-24] MEDS: TYLENOL 650 MG PO (12:12)
--- NOTE | 2024-03-24 14:50 | CM ---
Reviewed the chart notes and spoke with the patient at the bedside. [facility] assessment sheet, consents, PASRR, and [place] -51 forms completed and faxed to the [facility]. Referrals sent to area SNFs for vermin exterminator placement with MA. [facility]ON[facility] continues to be
available to patient/family and is monitoring medical plan for needs at discharge.
Plan: Discharge to a SNF once a bed secure and review by the state completed.
[2024-03-24 15:45] VITALS: BP 129/74
[2024-03-24] MEDS: LIPITOR 40 MG PO (17:03)
[2024-03-24] MEDS: CORTISPORIN OTIC SUSPENSION 1 DROP OTIC (20:56)
[2024-03-24 23:27] VITALS: BP 132/71
[2024-03-25] MEDS: HEPARIN 5000 UNITS SC ×4 (01:00→23:42)
[2024-03-25 06:00] VITALS: BMI 34.4
[2024-03-25 07:05] VITALS: BP 116/75
[2024-03-25] MEDS: AUGMENTIN 875 MG/125 MG 1 TABLET PO ×2 (08:33→19:37)
[2024-03-25] MEDS: ABILIFY 2 MG PO (08:33)
[2024-03-25] MEDS: ZOLOFT 50 MG PO (08:33)
[2024-03-25] MEDS: LOW STRENGTH ASPIRIN 81 MG PO (08:33)
[2024-03-25] MEDS: CORTISPORIN OTIC SUSPENSION 4 DROP OTIC ×2 (08:33→22:27)
[2024-03-25] MEDS: PROTONIX 40 MG PO (08:33)
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
--- NOTE | 2024-03-25 12:51 | W.PN.UPDATE ---
Update Note
Progress Note Update
patient sleeping . nursing tells me she is still c.o ear pain so i did not wake her. dc'ed morphine which we had discussed yesterday. added tylenol for ear pain. while nsaid's work better patient w dec gfr will defer to hospitalist. will check in
w patient tomorrow
[2024-03-25 15:05] VITALS: BP 119/73
[2024-03-25] MEDS: CORTISPORIN OTIC SUSPENSION 1 DROP OTIC (17:24)
[2024-03-25] MEDS: LIPITOR 40 MG PO (17:24)
[2024-03-25] MEDS: TYLENOL 650 MG PO ×2 (17:38→23:43)
[2024-03-25 23:31] VITALS: BP 108/56
[2024-03-26 05:11] VITALS: BMI 34.4
[2024-03-26 07:30] VITALS: BP 124/75
[2024-03-26] MEDS: ABILIFY 2 MG PO (08:38)
[2024-03-26] MEDS: HEPARIN 5000 UNITS SC ×3 (08:38→23:09)
[2024-03-26] MEDS: LOW STRENGTH ASPIRIN 81 MG PO (08:38)
[2024-03-26] MEDS: AUGMENTIN 875 MG/125 MG 1 TABLET PO (08:38)
[2024-03-26] MEDS: ZOLOFT 50 MG PO (08:38)
[2024-03-26] MEDS: PROTONIX 40 MG PO (08:38)
[2024-03-26] MEDS: CORTISPORIN OTIC SUSPENSION 1 DROP OTIC ×3 (08:41→21:25)
[2024-03-26] MEDS: TYLENOL 650 MG PO (08:41)
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
[2024-03-26 15:30] VITALS: BP 130/72
[2024-03-26] MEDS: NAPROSYN 250 MG PO (15:33)
[2024-03-26] MEDS: ROCEPHIN 1000 MG IV (15:39)
[2024-03-26] MEDS: STERILE WATER FOR INJECTION 10 ML IV (15:39)
[2024-03-26] MEDS: LIPITOR PO (17:48)
--- NOTE | 2024-03-26 17:59 | W.PN.UPDATE ---
Update Note
Progress Note Update
CT neck with patent auditory canals b/l. no sinusitis
Lung with emphysematous changes
accidental speculated 2.7cm R lung mass - ordered ct c/a/p and placed pulm consult
[2024-03-26] MEDS: ZOFRAN 4 MG IV (22:39)
[2024-03-26 23:32] VITALS: BP 129/68
[2024-03-27 05:20] VITALS: BMI 34.8
[2024-03-27 06:41] LABS: % Basophils 0.5 % (0-2); % Eosinophils 4.4 % (0-6); % Immature Granulocytes 1.2 % (0-0.5); % Lymphocytes 26.1 % (20.5-51.1); % Monocytes 8.9 % (1.7-9.3); % Neutrophils 58.9 % (42.2-75.2); Absolute Eosinophils 0.3 10^3/uL (0-0.7); Absolute Immature Granulocytes 0.1 10^3/uL (0-0.05); Absolute Lymphocytes 1.7 10^3/uL (1.2-3.4); Absolute Monocytes 0.6 10^3/uL (0.1-0.6); Absolute Neutrophils 3.9 10^3/uL (1.4-6.5); Hematocrit 32.8 % (37.0-47.0); Hemoglobin 10.7 g/dL (12.0-16.0); Mean Corp Hgb Conc. 32.6 g/dL (33.0-37.0); Mean Corpuscular Hgb 29.1 pg (27.0-31.0); Mean Corpuscular Volume 89.1 fL (81.0-99.0); Mean Platelet Volume 11.4 fL (7.4-10.4); Nucleated Red Blood Cells % 0 %; Platelet Count 206 10^3/uL (130-400); Red Blood Cell Count 3.68 10^6/uL (4.20-5.40); Red Cell Dist. Width 14.3 % (11.5-14.5); White Blood Cell Count 6.6 10^3/uL (4.8-10.8)
[2024-03-27 06:57] VITALS: BP 118/76
[2024-03-27 07:02] LABS: Blood Urea Nitrogen 19 mg/dl (7-17); Calcium 8.2 mg/dl (8.4-10.2); Carbon Dioxide 23 mmol/L (22-30); Chloride 99 mmol/L (98-107); Estimated Creatinine Clearance 47 ml/min; Glucose 99 mg/dl (70-99); Potassium 4.2 mmol/L (3.5-5.1); Sodium 136 mmol/L (135-145); eGFR 37.85
[2024-03-27] MEDS: PROTONIX 40 MG PO (07:39)
[2024-03-27] MEDS: ABILIFY 2 MG PO (07:39)
[2024-03-27] MEDS: HEPARIN 5000 UNITS SC ×3 (07:39→23:28)
[2024-03-27] MEDS: LOW STRENGTH ASPIRIN 81 MG PO (07:39)
[2024-03-27] MEDS: ZOLOFT 50 MG PO (07:39)
[2024-03-27] MEDS: NAPROSYN 250 MG PO ×2 (07:40→23:08)
[2024-03-27] MEDS: CORTISPORIN OTIC SUSPENSION OTIC ×2 (07:40→10:40)
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
--- NOTE | 2024-03-27 10:16 | CON.MD ---
Consultation - Medical
-
dictated.
I removed cerumen and her hearing loss resolved. Ear completely normal on exam and CT.
L ear pain and odynophagia from glossopharyngeal neuralgia.
I usually treat this with gabapentin but not sure if this will interact with her other medications and recent renal failure.
Can d/c abx and cortisporin drops.
Also has unexpected R lung mass, PET scan was recommended
--- NOTE | 2024-03-27 11:48 | CM ---
Addendum entered by Letty Núñez 03/27/24 14:39:
Received call from Neida from [facility] ([phone]) they will not need to do a site visit. She stated no need for another Level 2.
Neida faxed paperwork to CM department which includes the level of of care paperwork/Nursing Facility Clinically Eligible.
Original Note:
Spoke with Neida from [facility] - she will get back to CM regarding level 2 appeal.
Potential visit patient on 03/29.
Additional referrals sent in careport - discussed with patient.
PLAN: SNF, pending bed availability
[2024-03-27 15:37] VITALS: BP 140/91
--- NOTE | 2024-03-27 16:14 | W.PN.PUL3 ---
Today's Communication / Plan
-
Will convert CT chest to iron, wait for official report
Wait for official report CT abdomen pelvis
Likely will need bronchoscopic biopsy with mediastinal survey with endobronchial ultrasound, given the size of the lesion.
Will need a PET/CT in the outpatient setting as well
Will need eventual pulmonary function testing, may be a surgical candidate
Assessment
-
Initially seen 03/14/2024 in the critical care unit, 54-year-old female from [facility] with a history of depression, hypertension, hyperlipidemia, schizoaffective disorder, bipolar disorder, hypertension, GERD, and CVA who presented with
lethargy noted to have lithium toxicity and acute renal failure.
Patient also has been having some mental health issues. Psychiatry following.
Patient has been in the hospital for 13 days.
Part of evaluation for otitis/otalgia included a CT of the neck that showed no evidence for sinusitis. Incidental right upper lobe lung mass.
Subsequent CT of the chest confirmed a 2.7 cm right lung mass.
-
Incidental-right lung mass 2.7 cm spiculated highly suspicious for malignancy. Consulted on 03/27/2024 for evaluation.
Emphysema on CAT scan.
-
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
Toxic metabolic encephalopathy-back to baseline/resolved.
Anxiety/depression
?Bipolar disorder/schizoaffective disorder
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
Chronic pain syndrome left neck
Ambulatory dysfunction
Hypertension
GERD
History of smoking: Quit at age 51. 1 pack/day for about 30 years.
-
Assessment and plan:
Incidental lung mass on CT of the chest, not evident on chest x-ray 03/14/2024 likely due to location and transposition of other structures.
-
Patient does have emphysema on CAT scan-lung mass right upper lobe posterior segment abutting the fissure.
This mass is highly suggestive of malignancy.
I do not appreciate significant mediastinal or hilar lymph node but this CAT scan is without contrast and there is limitation.
Ideally bronchoscopic approach with mediastinal surveillance is indicated.
Explained to patient and she is agreeable.
-
I will have radiology convert the CT chest to ION format and will discuss with interventional pulmonology to evaluate case, I do appreciate an airway and likely there is a path for bronchoscopic approach.
If there is no bronchoscopic approach then percutaneous transthoracic needle aspiration can be attempted she does have emphysema and has increased risk of pneumothorax.
Eventual PET/CT
-
I will wait for official report of CT abdomen pelvis as well asked if there is any suggestion of distant metastatic disease will prefer to biopsy dose.
-
Discussed with patient in detail. She is agreeable to get biopsy if necessary.
She is agreeable to follow-up as well.
She states that she does not have any family members.
-
Patient will need outpatient pulmonary follow-up.
Subjective Data
-
Date of Service:
Date of Service: March 27, 2024
Chief Complaint: Pulmonary Follow Up (Pulmonary reconsulted 03/27/2024 for pulmonary mass)
Subjective:
No pulmonary complaints
Incidental finding on CAT scan of the sinuses
Review of Systems
General: Fever (n)
Cardiopulmonary: Dyspnea (n) and Cough (n)
GI: Abdominal Pain (n) and Nausea (n)
Neuro: Headache (n)
Objective Data
Data Reviewed
Vital Signs / I&O / Oxygen:
Vital Signs
Temp Pulse Resp BP Pulse Ox
98.4 F 66 18 118/76 96
03/27/24 06:57 03/27/24 06:57 03/27/24 06:57 03/27/24 06:57 03/27/24 06:57
Intake and Output
03/26/24 03/27/24 03/28/24
06:59 06:59 06:59
Intake Total 1080 / 1080 1440 / 1440
Balance 1080 / 1080 1440 / 1440
SaO2 96
Nasal Cannula flow liters per 1
minute
Physical Exam
General: Comfortable
HEENT: Normocephalic
Cardiovascular: S1-S2
Respiratory: Clear and Non-Labored Respirations
GI: Soft and Non Distended
Neurology: Awake and Alert
Skin: Warm
Labs/Micro/Reports
Lab Data
03/27/24 05:35
03/27/24 05:35
[2024-03-27] MEDS: LIPITOR PO (17:08)
--- NOTE | 2024-03-27 17:43 | PTCARENOTE ---
Patient reports, I've just been told that I have cancer, and I'm happy, because it means I will . Patient reports that gas transfer operator gave her lung cancer diagnosis, recommended surgical removal and biopsy as curative. Patient reports she plans
not to do the surgery, because she wants to , and she has been wanting to for approx. the past 10 years. Patient is currently under treatment with psych, psych aware of MDD dx. I explained that cancer is a painful way to , and that perhaps
she could feel melina in helping others through volunteering or group therapy.
[2024-03-27] MEDS: NEURONTIN 100 MG PO (23:06)
[2024-03-27 23:21] VITALS: BP 105/60
[2024-03-28 05:54] VITALS: BMI 35.0
[2024-03-28 07:26] LABS: Hematocrit 30.8 % (37.0-47.0); Mean Corp Hgb Conc. 32.5 g/dL (33.0-37.0); Mean Corpuscular Volume 89.3 fL (81.0-99.0); Mean Platelet Volume 11.1 fL (7.4-10.4); Platelet Count 195 10^3/uL (130-400); Red Blood Cell Count 3.45 10^6/uL (4.20-5.40); Red Cell Dist. Width 14.6 % (11.5-14.5); White Blood Cell Count 7.2 10^3/uL (4.8-10.8)
[2024-03-28 07:35] LABS: Blood Urea Nitrogen 18 mg/dl (7-17); Calcium 8.4 mg/dl (8.4-10.2); Carbon Dioxide 23 mmol/L (22-30); Chloride 102 mmol/L (98-107); Estimated Creatinine Clearance 47 ml/min; Glucose 105 mg/dl (70-99); Potassium 4.1 mmol/L (3.5-5.1); Sodium 134 mmol/L (135-145); eGFR 37.85
[2024-03-28 07:50] VITALS: BP 131/81
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
[2024-03-28] MEDS: PROTONIX 40 MG PO (08:27)
[2024-03-28] MEDS: LOW STRENGTH ASPIRIN 81 MG PO (08:28)
[2024-03-28] MEDS: ABILIFY 2 MG PO (08:28)
[2024-03-28] MEDS: ZOLOFT 50 MG PO (08:28)
[2024-03-28] MEDS: HEPARIN 5000 UNITS SC ×3 (08:28→23:58)
[2024-03-28] MEDS: NEURONTIN 100 MG PO ×2 (11:26→20:08)
--- NOTE | 2024-03-28 14:08 | PTOTSP ---
Reviewed chart and attempted to see pt for PT tx. She was dozing in bed but woke easily. Pt refusing to get OOB today. RN is aware. This is her 3rd refusal. PT will sign off.
--- NOTE | 2024-03-28 15:02 | CM ---
Reviewed the chart notes. Received Level of Care Determination Notice from [facility] from 11/2023 - still good. Placed in chart and in Care Port. Search for accepting facility continues. CM continues to be available to patient/family and is
monitoring medical plan for needs at discharge.
Plan: Discharge to SNF/rehab once bed found.
[2024-03-28 15:54] VITALS: BP 124/71
[2024-03-28] MEDS: LIPITOR 40 MG PO (16:48)
--- NOTE | 2024-03-28 17:00 | W.PN.PUL3 ---
Today's Communication / Plan
-
My office will arrange for follow-up in my office and arrange for bronchoscopic biopsy in the next 1 to 2 weeks hopefully.
Will also arrange for PET/CT once she sees us in the office.
Patient understands that lung mass is highly suggestive of lung cancer.
Patient does not have a cell phone
Placement is ongoing-will need to track down at facility patient is being discharged to coordinate procedure.
Assessment
-
Initially seen 03/14/2024 in the critical care unit, 54-year-old female from [facility] with a history of depression, hypertension, hyperlipidemia, schizoaffective disorder, bipolar disorder, hypertension, GERD, and CVA who presented with
lethargy noted to have lithium toxicity and acute renal failure.
Patient also has been having some mental health issues. Psychiatry following.
Patient has been in the hospital for 13 days.
Part of evaluation for otitis/otalgia included a CT of the neck that showed no evidence for sinusitis. Incidental right upper lobe lung mass.
Subsequent CT of the chest confirmed a 2.7 cm right lung mass.
-
Incidental-right lung mass 2.7 cm spiculated highly suspicious for malignancy. Consulted on 03/27/2024 for evaluation.
Emphysema on CAT scan.
-
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
Toxic metabolic encephalopathy-back to baseline/resolved.
Anxiety/depression
?Bipolar disorder/schizoaffective disorder
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
Chronic pain syndrome left neck
Ambulatory dysfunction
Hypertension
GERD
History of smoking: Quit at age 51. 1 pack/day for about 30 years.
-
Assessment and plan:
Incidental lung mass on CT of the chest, not evident on chest x-ray 03/14/2024 likely due to location and transposition of other structures.
There is a spiculated pleural-based mass in the posterior right upper lobe consistent with malignancy until proven otherwise. This measures 2.7 x 2.1 cm. This is noncalcified. There is a solid noncalcified pulmonary nodule in the anterior left upper
lobe on image #21 measuring 4 mm.
No pleural effusions
No mediastinal or hilar lymphadenopathy is noted
CT abdomen pelvis without suggesting of metastatic disease.
-
This mass is highly suggestive of malignancy.
Recommend bronchoscopic biopsy with robotic guidance. Her CAT scan has been converted to ION format
Reviewed with interventional pulmonology: Lung mass is amenable.
-
Will need eventual PET/CT
Will have my office call her to arrange biopsy. She will need to be seen in our office prior to that.
Will arrange for short-term follow-up.
-
Discussed with patient in detail. She is agreeable to pursue biopsy.
She is agreeable to follow-up as well.
She states that she does not have any family members.
-
Patient will need outpatient pulmonary follow-up.
-
Agree with discharge planning.

Data:
Echocardiogram 03/28/2024: Reviewed.
1. Normal left ventricular size and systolic function without regional wall
motion abnormalities. LV ejection fraction is 55-60% by Allan's method of
discs. Mild concentric left ventricular hypertrophy. Normal diastolic function.
2. Normal right ventricular size and systolic function.
3. No significant valvular abnormalities.
4. No pericardial effusion.
Subjective Data
-
Date of Service:
Date of Service: March 28, 2024
Chief Complaint: Pulmonary Follow Up (Pulmonary reconsulted 03/27/2024 for pulmonary mass)
Subjective:
Patient denies any pulmonary complaints
Review of Systems
Cardiopulmonary: Dyspnea (n)
GI: Abdominal Pain (n) and Nausea
Objective Data
Data Reviewed
Vital Signs / I&O / Oxygen:
Vital Signs
Temp Pulse Resp BP Pulse Ox
98.6 F 74 17 124/71 97
03/28/24 15:54 03/28/24 15:54 03/28/24 15:54 03/28/24 15:54 03/28/24 15:54
Intake and Output
03/27/24 03/28/24 03/29/24
06:59 06:59 06:59
Intake Total 1440 / 1440 1660 / 1660 780 / 780
Balance 1440 / 1440 1660 / 1660 780 / 780
SaO2 97
Nasal Cannula flow liters per 1
minute
Physical Exam
General: Comfortable
HEENT: Normocephalic
Cardiovascular: S1-S2
Respiratory: Clear and Non-Labored Respirations
GI: Soft and Non Distended
Neurology: Awake and Alert
Skin: Warm
Labs/Micro/Reports
Lab Data
03/28/24 06:24
03/28/24 06:24
[2024-03-28 23:15] VITALS: BP 138/74
[2024-03-29 06:00] VITALS: BMI 35.2
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
[2024-03-29 07:50] VITALS: BP 150/90
[2024-03-29] MEDS: LOW STRENGTH ASPIRIN 81 MG PO (08:08)
[2024-03-29] MEDS: ZOLOFT 50 MG PO (08:08)
[2024-03-29] MEDS: NEURONTIN 100 MG PO ×2 (08:10→19:34)
[2024-03-29] MEDS: ABILIFY 2 MG PO (08:11)
[2024-03-29] MEDS: PROTONIX 40 MG PO (08:11)
[2024-03-29] MEDS: HEPARIN 5000 UNITS SC ×2 (08:12→17:34)
[2024-03-29 09:25] LABS: Blood Urea Nitrogen 18 mg/dl (7-17); Calcium 8.6 mg/dl (8.4-10.2); Carbon Dioxide 24 mmol/L (22-30); Chloride 102 mmol/L (98-107); Estimated Creatinine Clearance 47 ml/min; Glucose 130 mg/dl (70-99); Potassium 4.8 mmol/L (3.5-5.1); Sodium 137 mmol/L (135-145); eGFR 37.85
--- NOTE | 2024-03-29 11:07 | CM ---
Reviewed the chart notes. Additional referrals sent via Care Port. CM continues to be available to patient/family and is monitoring medical plan for needs at discharge.
Plan: Discharge to SNF once a bed is secured.
--- NOTE | 2024-03-29 12:03 | W.PN.UPDATE ---
Update Note
Progress Note Update
patient seen chart reviewed. spoke with nursing. patient aware of the ? malignant tumor in her lung. she told nursing that she would accept biopsy but she was unlikely to accept treatment if indeed it is cancer. nursing told me her hospitalist
questionned whether she had capacity to refuse rx. i have been meeting with ms corona since she has come in to . when first admitted she was confused bc lithium toxicity. at this point i am of the opinioin that she does indeed have capacity to
make medical decisions on her own behalf. patient saw dr goodwin and was dx with neuropathy as cause of ear neck pain. she is taking gabapentin 100 mg bid. she was sleepy this am. possibly gabapentin. need to monitor. creatinine is better 1.6 will
follow
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
[2024-03-29 15:18] VITALS: BP 151/81
[2024-03-29] MEDS: ZOFRAN 4 MG IV (16:11)
[2024-03-29] MEDS: LIPITOR 40 MG PO (17:34)
--- NOTE | 2024-03-29 17:55 | W.PN.PUL3 ---
Today's Communication / Plan
-
Will arrange for outpatient bronchoscopic biopsy.
Will follow-up as needed
Assessment
-
Initially seen 03/14/2024 in the critical care unit, 54-year-old female from [facility] with a history of depression, hypertension, hyperlipidemia, schizoaffective disorder, bipolar disorder, hypertension, GERD, and CVA who presented with
lethargy noted to have lithium toxicity and acute renal failure.
Patient also has been having some mental health issues. Psychiatry following.
Patient has been in the hospital for 13 days.
Part of evaluation for otitis/otalgia included a CT of the neck that showed no evidence for sinusitis. Incidental right upper lobe lung mass.
Subsequent CT of the chest confirmed a 2.7 cm right lung mass.
-
Incidental-right lung mass 2.7 cm spiculated highly suspicious for malignancy. Consulted on 03/27/2024 for evaluation.
Emphysema on CAT scan.
-
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
Toxic metabolic encephalopathy-back to baseline/resolved.
Anxiety/depression
?Bipolar disorder/schizoaffective disorder
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
Chronic pain syndrome left neck
Ambulatory dysfunction
Hypertension
GERD
History of smoking: Quit at age 51. 1 pack/day for about 30 years.
-
Assessment and plan:
Incidental lung mass on CT of the chest, not evident on chest x-ray 03/14/2024 likely due to location and transposition of other structures.
There is a spiculated pleural-based mass in the posterior right upper lobe consistent with malignancy until proven otherwise. This measures 2.7 x 2.1 cm. This is noncalcified. There is a solid noncalcified pulmonary nodule in the anterior left upper
lobe on image #21 measuring 4 mm.
No pleural effusions
No mediastinal or hilar lymphadenopathy is noted
CT abdomen pelvis without suggesting of metastatic disease.
-
This mass is highly suggestive of malignancy.
Recommend bronchoscopic biopsy with robotic guidance. Her CAT scan has been converted to ION format
Reviewed with interventional pulmonology: Lung mass is amenable.
-
Will need eventual PET/CT
My office already has her information. Will schedule her for follow-up on biopsy. My office will be reaching out to her. Patient is aware.
Will arrange for short-term follow-up.
-
Discussed with patient in detail. She is agreeable to pursue biopsy.
She is agreeable to follow-up as well.
She states that she does not have any family members.
-
Patient will need outpatient pulmonary follow-up.
-
Agree with discharge planning.
At this point we will follow-up as needed.

Data:
Echocardiogram 03/28/2024: Reviewed.
1. Normal left ventricular size and systolic function without regional wall
motion abnormalities. LV ejection fraction is 55-60% by Allan's method of
discs. Mild concentric left ventricular hypertrophy. Normal diastolic function.
2. Normal right ventricular size and systolic function.
3. No significant valvular abnormalities.
4. No pericardial effusion.
Subjective Data
-
Date of Service:
Date of Service: March 29, 2024
Chief Complaint: Pulmonary Follow Up (Pulmonary reconsulted 03/27/2024 for pulmonary mass)
Subjective:
No new pulmonary complaints
Objective Data
Data Reviewed
Vital Signs / I&O / Oxygen:
Vital Signs
Temp Pulse Resp BP Pulse Ox
98.4 F 71 14 151/81 98
03/29/24 15:18 03/29/24 15:18 03/29/24 15:18 03/29/24 15:18 03/29/24 15:18
Intake and Output
03/28/24 03/29/24 03/30/24
06:59 06:59 06:59
Intake Total 0 / 1660 1400 / 1400
Balance 1660 / 1660 1400 / 1400
SaO2 98
Nasal Cannula flow liters per 1
minute
Physical Exam
General: Comfortable
HEENT: Normocephalic
Cardiovascular: S1-S2
Respiratory: Clear and Non-Labored Respirations
GI: Soft and Non Distended
Neurology: Awake and Alert
Skin: Warm
Labs/Micro/Reports
Lab Data
03/28/24 06:24
03/29/24 08:44
[2024-03-29 23:48] VITALS: BP 131/76
[2024-03-30] MEDS: HEPARIN 5000 UNITS SC ×3 (00:26→16:35)
[2024-03-30 06:00] VITALS: BMI 35.5
[2024-03-30 06:55] LABS: Blood Urea Nitrogen 18 mg/dl (7-17); Calcium 8.3 mg/dl (8.4-10.2); Carbon Dioxide 26 mmol/L (22-30); Chloride 101 mmol/L (98-107); Estimated Creatinine Clearance 47 ml/min; Glucose 102 mg/dl (70-99); Potassium 4.7 mmol/L (3.5-5.1); Sodium 137 mmol/L (135-145); eGFR 37.85
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
[2024-03-30 08:06] VITALS: BP 142/79
[2024-03-30] MEDS: ABILIFY 2 MG PO (09:24)
[2024-03-30] MEDS: PROTONIX 40 MG PO (09:24)
[2024-03-30] MEDS: NEURONTIN 100 MG PO ×2 (09:24→21:10)
[2024-03-30] MEDS: ZOLOFT 50 MG PO (09:24)
[2024-03-30] MEDS: LOW STRENGTH ASPIRIN 81 MG PO (09:24)
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
--- NOTE | 2024-03-30 11:32 | W.PN.UPDATE ---
Addendum entered and electronically signed by Casey Aleman MD 03/31/24 11:43:
received text from dr cardona he will review and consider opiate medication at low dose.
Original Note:
Update Note
Progress Note Update
patient seen chart reviewed. discussed w nursing and w dr sherif leiva. i found ms corona sleeping again. she was readily rousable but i am concerned that she is more depressed. she readily spoke with me about her feelings. she is not unhappy
about the prospect of dying from lung cancer. she said she has had a good life 'the first fifty years anyway' and was tired of crisis after crisis in her life. she believes in an afterlife and that she will be united with those she has lost in her
family in particular. she is agreeable to the biopsy to find out if she does have cancer. we talked about the fact that dr gorman feels her tumor may be operable and she could have a chance at a cure. discussed increase in zoloft to 100 mg. she
agrees to try to be oob as much as possible will ask pt to see her again. will continue to offer support. .
[2024-03-30 14:19] VITALS: BP 133/82; PULSE 73; O2SAT 97
[2024-03-30 15:51] VITALS: BP 133/92
--- NOTE | 2024-03-30 16:16 | CM ---
Reviewed the chart notes. Additional referrals sent via [facility]. CM continues to be available to patient/family and is monitoring medical plan for needs at discharge.
Plan: Discharge to SNF once a LT bed is secured.
[2024-03-30] MEDS: LIPITOR PO (17:50)
[2024-03-30 23:36] VITALS: BP 126/79
[2024-03-31] MEDS: HEPARIN 5000 UNITS SC ×4 (00:31→23:47)
[2024-03-31] MEDS: TYLENOL 650 MG PO (05:57)
[2024-03-31 06:00] VITALS: BMI 35.7
[2024-03-31 07:18] VITALS: BP 140/76
--- NOTE | 2024-03-31 07:29 | W.PN.HOSP.TC ---
Addendum entered and electronically signed by Tate Iniguez MD 03/31/24 12:36:
reviewed [facility], on [facility] as an outgpatient
-last filled in jan 2024
-started oxycodone 5mg q6h prn
Original Note:
Today's Communication/Plan
-
Assessment / Plan
Assessment / Plan
NAD
Scleral Anicteric
MMM
No JVD
CTABL
RRR, S1/S2
Soft, NT, ND, BS+
Warm, Dry
AAOx3
Calm
Toxic metabolic encephalopathy in the setting of severe TERESSA that was secondary to lithium toxicity s/p temporary hemodialysis with hemodialysis line that has been removed
-At this time resolved and back to baseline
Bipolar
-[place] discontinued altogether per psychiatry
Anxiety/depression continue sertraline
Glossopharyngeal neuralgia, this was diagnosed by ENT. Cerumen was removed. Recommended to start gabapentin for which low-dose was started. Recommended to discontinue antibiotic and steroid drops.
-Will renally dose adjust
2.7CM spiculated RUL mass
-Concenring for maligancy
-Pulm following
-Will need outpat pulm f/p for cryobx/TBBx
Large gallstone, asymptomatic
-Outpt Surgery follow up
Pending dispo to SNF. CM assisting
Anticipated Discharge: Today
Subjective/Interval History
-
Date of Service: March 31, 2024
seen and examined
no new complaints
no acute overnight events
Objective Data
-
Labs:
Laboratory Results
03/31/24
06:57
Sodium Pending
Potassium Pending
Chloride Pending
Carbon Dioxide Pending
BUN Pending
Creatinine Pending
Glucose Pending
Calcium Pending
Vital Signs:
Vital Signs
Temp Pulse Resp BP Pulse Ox
97.8 F 73 19 126/79 98
03/30/24 23:36 03/30/24 23:36 03/30/24 23:36 03/30/24 23:36 03/30/24 23:36
I&O
03/30/24 03/31/24 04/01/24
06:59 06:59 06:59
Intake Total 1140 / 1140 1480 / 1480
Balance 1140 / 1140 1480 / 1480
[2024-03-31 08:25] LABS: Blood Urea Nitrogen 19 mg/dl (7-17); Calcium 8.9 mg/dl (8.4-10.2); Carbon Dioxide 25 mmol/L (22-30); Chloride 102 mmol/L (98-107); Estimated Creatinine Clearance 47 ml/min; Glucose 110 mg/dl (70-99); Potassium 4.9 mmol/L (3.5-5.1); Sodium 135 mmol/L (135-145); eGFR 37.85
[2024-03-31] MEDS: PROTONIX 40 MG PO (09:28)
[2024-03-31] MEDS: ABILIFY 2 MG PO (09:29)
[2024-03-31] MEDS: LOW STRENGTH ASPIRIN 81 MG PO (09:29)
[2024-03-31] MEDS: NEURONTIN 100 MG PO ×2 (09:29→20:40)
[2024-03-31] MEDS: ZOLOFT 100 MG PO (09:29)
--- NOTE | 2024-03-31 11:33 | W.PN.UPDATE ---
Update Note
Progress Note Update
patient seen chart reviewed. spoke with nursing at length . the patient is in a lot of pain secondary to back and knee issues. the kidney impairment inhibits the use of nsaids extensively and even tylenol. she had been on morphine at admit i am
wondering and i sent this to dr cardona in a tiger text whether we shoujld restart small doses. in the meantime have ordered k pad and lido patch. i spoke to PT yesterday...she did get up for PT which is a start as she had refused them a couple of
days ago. would continue to offer support as she awaits lung biopsy
[2024-03-31] MEDS: LIDOCAINE 4% PATCH 1 PATCH TOPICAL (11:34)
[2024-03-31] MEDS: ROXICODONE 5 MG PO ×2 (13:18→21:08)
--- NOTE | 2024-03-31 13:28 | CM ---
Reviewed the chart notes. Additional referrals sent via [facility]. CM continues to be available to patient/family and is monitoring medical plan for needs at discharge.
Plan: Discharge to SNF once a bed is found.
[2024-03-31 16:25] VITALS: BP 134/79
[2024-03-31] MEDS: LIPITOR PO (17:41)
[2024-03-31 23:38] VITALS: BP 118/68
[2024-04-01 06:00] VITALS: BMI 36.0
[2024-04-01 07:10] VITALS: BP 127/57
[2024-04-01] MEDS: ABILIFY 2 MG PO (08:09)
[2024-04-01] MEDS: PROTONIX 40 MG PO (08:09)
[2024-04-01] MEDS: LOW STRENGTH ASPIRIN 81 MG PO (08:09)
[2024-04-01] MEDS: LIDOCAINE 4% PATCH 1 PATCH TOPICAL (08:10)
[2024-04-01] MEDS: NEURONTIN 100 MG PO ×2 (08:10→19:59)
[2024-04-01] MEDS: HEPARIN 5000 UNITS SC ×3 (08:10→23:13)
[2024-04-01] MEDS: ZOLOFT 100 MG PO (08:10)
[2024-04-01] MEDS: ROXICODONE 5 MG PO ×3 (08:11→20:01)
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
--- NOTE | 2024-04-01 11:32 | W.PN.HOSP.TC ---
Today's Communication/Plan
-
Assessment / Plan
Assessment / Plan
NAD
Scleral Anicteric
MMM
No JVD
CTABL
RRR, S1/S2
Soft, NT, ND, BS+
Warm, Dry
AAOx3
Calm
Toxic metabolic encephalopathy in the setting of severe TERESSA that was secondary to lithium toxicity s/p temporary hemodialysis with hemodialysis line that has been removed
-At this time resolved and back to baseline
Bipolar
-[place] discontinued altogether per psychiatry
Anxiety/depression continue sertraline
Glossopharyngeal neuralgia, this was diagnosed by ENT. Cerumen was removed. Recommended to start gabapentin for which low-dose was started. Recommended to discontinue antibiotic and steroid drops.
-Will renally dose adjust
2.7CM spiculated RUL mass
-Concenring for maligancy
-Pulm following
-Will need outpat pulm f/p for cryobx/TBBx
Large gallstone, asymptomatic
-Outpt Surgery follow up
Has been medically cleared for discharge. Pending dispo to SNF. CM assisting
Anticipated Discharge: Today
Subjective/Interval History
-
Date of Service: April 01, 2024
Seen and examined. No new complaints. No acute overnight events.
Objective Data
-
Vital Signs:
Vital Signs
Temp Pulse Resp BP Pulse Ox
98.4 F 71 16 127/57 97
04/01/24 07:10 04/01/24 07:10 04/01/24 07:10 04/01/24 07:10 04/01/24 07:10
I&O
03/31/24 04/01/24 04/02/24
06:59 06:59 06:59
Intake Total 1480 / 1480 1800 / 1800
Balance 1480 / 1480 1800 / 1800
[2024-04-01 15:40] VITALS: BP 112/70
[2024-04-01] MEDS: LIPITOR 40 MG PO (17:12)
[2024-04-01 23:52] VITALS: BP 107/76
[2024-04-02] MEDS: ROXICODONE 5 MG PO ×4 (02:40→23:38)
[2024-04-02 06:00] VITALS: BMI 36.4
[2024-04-02] MEDS: PROTONIX 40 MG PO (07:43)
[2024-04-02] MEDS: ABILIFY 2 MG PO (07:44)
[2024-04-02] MEDS: ZOLOFT 100 MG PO (07:44)
[2024-04-02] MEDS: LIDOCAINE 4% PATCH 1 PATCH TOPICAL (07:44)
[2024-04-02] MEDS: LOW STRENGTH ASPIRIN 81 MG PO (07:44)
[2024-04-02] MEDS: NEURONTIN 100 MG PO ×2 (07:44→19:29)
[2024-04-02] MEDS: HEPARIN 5000 UNITS SC ×3 (07:44→23:38)
[2024-04-02 07:52] VITALS: BP 114/73
--- NOTE | 2024-04-02 11:45 | W.PN.HOSP.TC ---
Today's Communication/Plan
-
Pending placement
Assessment / Plan
Assessment / Plan
NAD
Scleral Anicteric
MMM
No JVD
CTABL
RRR, S1/S2
Soft, NT, ND, BS+
Warm, Dry
AAOx3
Calm
Toxic metabolic encephalopathy in the setting of severe TERESSA that was secondary to lithium toxicity s/p temporary hemodialysis with hemodialysis line that has been removed
-At this time resolved and back to baseline
Bipolar
-[place] discontinued altogether per psychiatry
Anxiety/depression continue sertraline
Glossopharyngeal neuralgia, this was diagnosed by ENT. Cerumen was removed. Recommended to start gabapentin for which low-dose was started. Recommended to discontinue antibiotic and steroid drops.
-Will renally dose adjust
2.7CM spiculated RUL mass
-Concenring for maligancy
-Pulm following
-Will need outpat pulm f/p for cryobx/TBBx
Large gallstone, asymptomatic
-Outpt Surgery follow up
Has been medically cleared for discharge. Pending dispo to SNF. CM assisting
Anticipated Discharge: Today
Subjective/Interval History
-
Date of Service: April 02, 2024
Seen and examined. No new complaints. No acute overnight events.
Objective Data
-
Vital Signs:
Vital Signs
Temp Pulse Resp BP Pulse Ox
97.7 F 72 18 114/73 97
04/02/24 07:52 04/02/24 07:52 04/02/24 07:52 04/02/24 07:52 04/02/24 07:52
I&O
04/01/24 04/02/24 04/03/24
06:59 06:59 06:59
Intake Total 1800 / 1800 2880 / 2880
Balance 1800 / 1800 2880 / 2880
[2024-04-02 15:19] VITALS: BP 119/70
--- NOTE | 2024-04-02 16:19 | W.PN.UPDATE ---
Update Note
Progress Note Update
54 y/o woman who was admitted with lithium toxicity and renal failure suffers from depression and has made multiple suicide attempts, the most recent was in August when she first received any mental health treatment. Has had intervening medical
problems and has a history of CVA. Has had multiple losses.
Seen in room today. Feels very negatively about the state of our country and the younger generation. I provided support and encouragement and she seems more motivated to try to find a new job that will be less stressful and perhaps more meaningful
and helpful to others.
I reminded her that Zoloft and Abilify can both be increased over time. She has no nausea or diarrhea from Zoloft. No akathisia or dystonia. Not acutely suicidal at this time.
Is awaiting SNF placement.
[2024-04-02] MEDS: LIPITOR PO (17:03)
[2024-04-02 23:26] VITALS: BP 124/72
[2024-04-03 06:00] VITALS: BMI 36.7
[2024-04-03] MEDS: ROXICODONE 5 MG PO ×3 (06:39→22:20)
[2024-04-03 07:30] VITALS: BP 117/79
[2024-04-03] MEDS: LIDOCAINE 4% PATCH 1 PATCH TOPICAL (09:12)
[2024-04-03] MEDS: ZOLOFT 100 MG PO (09:13)
[2024-04-03] MEDS: LOW STRENGTH ASPIRIN 81 MG PO (09:13)
[2024-04-03] MEDS: PROTONIX 40 MG PO (09:13)
[2024-04-03] MEDS: ABILIFY 2 MG PO (09:13)
[2024-04-03] MEDS: NEURONTIN 100 MG PO ×2 (09:13→19:55)
[2024-04-03] MEDS: HEPARIN 5000 UNITS SC ×3 (09:13→23:24)
--- NOTE | 2024-04-03 10:20 | CM ---
Reviewed the chart notes. SHARONDA spoke with SHARONDA Bhatti [employer] [place] [employer] [facility] ([phone]). Updated on current search for retirement care. Doris will reach out to some of in-network facilities to see availability of
beds. CM continues to be available to patient/family and is monitoring medical plan for needs at discharge.
Plan: Discharge to SNF once bed secured.
[2024-04-03 11:25] VITALS: BP 123/71; PULSE 73; O2SAT 97
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
[2024-04-03 15:45] VITALS: BP 124/64
[2024-04-03] MEDS: LIPITOR PO (17:35)
[2024-04-03 23:37] VITALS: BP 106/52
[2024-04-04 05:52] VITALS: BMI 37.3
[2024-04-04] MEDS: ROXICODONE 5 MG PO ×3 (06:09→19:55)
[2024-04-04] MEDS: HEPARIN 5000 UNITS SC ×3 (08:25→23:21)
[2024-04-04] MEDS: ABILIFY 2 MG PO (08:25)
[2024-04-04] MEDS: PROTONIX 40 MG PO (08:25)
[2024-04-04] MEDS: LIDOCAINE 4% PATCH 1 PATCH TOPICAL (08:25)
[2024-04-04] MEDS: LOW STRENGTH ASPIRIN 81 MG PO (08:25)
[2024-04-04] MEDS: ZOLOFT 100 MG PO (08:25)
[2024-04-04] MEDS: NEURONTIN 100 MG PO ×2 (08:25→19:55)
[2024-04-04 08:26] VITALS: BP 123/69
--- NOTE | 2024-04-04 11:16 | W.PN.UPDATE ---
Update Note
Progress Note Update
Patient seem, chart reviewed, discussed with staff. No acute events overnight. She was in the midst of AM care when seen. Mood improving overall. No active SI at this time. Awaiting SNF placement once facility found to accept.
Impression/Recommendations: Unspecified Bipolar disorder vs Schizoaffective disorder - Continue with Zoloft which has been increased to 200mg and tolerating. Continue with Abilify 2mg as adjunct depressive treatment, this was started about 2 weeks
ago.
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
--- NOTE | 2024-04-04 15:27 | CM ---
Reviewed the chart notes. CM spoke with SHARONDA Bhatti [employer] [facility] ([phone]) regarding any in-network facilities willing to accept. Per Doris, no responses at this time. CM reached out to facilities
were referrals were sent yesterday, none willing/able to accept the patient. CM continues to be available to patient/family and is monitoring medical plan for needs at discharge.
Plan: Discharge to SNF once a bed is secured.
[2024-04-04 15:41] VITALS: BP 111/65
[2024-04-04] MEDS: LIPITOR PO (18:01)
[2024-04-04 23:10] VITALS: BP 113/57
[2024-04-05] MEDS: ROXICODONE 5 MG PO ×3 (03:39→16:54)
[2024-04-05 05:50] VITALS: BMI 37.5
[2024-04-05 07:33] VITALS: BP 122/69
[2024-04-05 08:29] LABS: Blood Urea Nitrogen 30 mg/dl (7-17); Carbon Dioxide 25 mmol/L (22-30); Chloride 102 mmol/L (98-107); Estimated Creatinine Clearance 49 ml/min; Glucose 100 mg/dl (70-99); Sodium 138 mmol/L (135-145); eGFR 37.85
[2024-04-05] MEDS: LIDOCAINE 4% PATCH 1 PATCH TOPICAL (08:43)
[2024-04-05] MEDS: NEURONTIN 100 MG PO ×2 (08:44→20:18)
[2024-04-05] MEDS: HEPARIN 5000 UNITS SC ×2 (08:44→16:54)
[2024-04-05] MEDS: PROTONIX 40 MG PO (08:44)
[2024-04-05] MEDS: LOW STRENGTH ASPIRIN 81 MG PO (08:44)
[2024-04-05] MEDS: ZOLOFT 100 MG PO (08:44)
[2024-04-05] MEDS: ABILIFY 2 MG PO (08:44)
--- NOTE | 2024-04-05 09:12 | CM ---
Updated referrals sent awaiting responses. Physician made aware of status. CM will continue to follow for discharge planning needs.
Plan; SNF
[2024-04-05] MEDS: SENOKOT-S 1 TABLET PO (09:28)
--- NOTE | 2024-04-05 11:34 | W.PN.UPDATE ---
Update Note
Progress Note Update
patient seen chart reviewed. vaibhav well known to me. she is in reasonable spirits although her wish to be more or less persists. she will not act upon this but says if she were to be mortally ill so be it. she is however wiling to pursue
the bx and consider options for rx. she is also willing to cooperate w pt although she likes to call the shots (afternoon not am) . continue w current psych meds as they are. she is on 100 zoloft NOT 200 as reported in last psych note. she is
feeling better re musculo skeletal pain given oxy heating pad and patch. will follow and offer support.
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
[2024-04-05 14:00] VITALS: BP 126/78; PULSE 74; O2SAT 97
[2024-04-05 14:15] VITALS: BP 126/78; PULSE 74; O2SAT 97
[2024-04-05 15:15] VITALS: BP 129/75
[2024-04-05 15:56] VITALS: BP 129/75
[2024-04-05] MEDS: LIPITOR PO (16:55)
[2024-04-05 23:00] VITALS: BP 123/67
[2024-04-06] MEDS: HEPARIN 5000 UNITS SC ×4 (00:01→23:52)
[2024-04-06] MEDS: ROXICODONE 5 MG PO ×5 (00:10→21:45)
[2024-04-06 06:00] VITALS: BMI 37.4
[2024-04-06 07:30] VITALS: BP 137/72
[2024-04-06] MEDS: LOW STRENGTH ASPIRIN 81 MG PO (07:58)
[2024-04-06] MEDS: NEURONTIN 100 MG PO ×2 (07:58→20:10)
[2024-04-06] MEDS: LIDOCAINE 4% PATCH 1 PATCH TOPICAL (07:58)
[2024-04-06] MEDS: PROTONIX 40 MG PO (07:58)
[2024-04-06] MEDS: ABILIFY 2 MG PO (07:58)
[2024-04-06] MEDS: ZOLOFT 100 MG PO (07:58)
--- NOTE | 2024-04-06 11:33 | W.PN.UPDATE ---
Update Note
Progress Note Update
patient seen chart reviewed. case discussed w pt and with nursing. the patient feels some relief at sitting up in a chair w a pillow beneath her. she told me 'i sat for two hours 15 minutes' it occurred to me and i discussed w pt and the patient
that sitting for this length of time in a patient w back pain is likely to be uncomfortable. it may not be the chair itself as patient supposes but rather the fact that a person with back /leg pain should not be immobile for that long. would
suggest that she get up and even just stand up every hour or walk around the room with assist each hour. that would benefit her in many ways in addition to preventing the stiffness associated w being immobile for long periods. i am aware that
hospitalist is trying to get lung bx done sooner while she is here rather than waiting for dispo to be settled. will continue to offer support. no changes made in her meds.
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
[2024-04-06 15:05] VITALS: BP 112/79
--- NOTE | 2024-04-06 15:05 | CM ---
Reviewed the chart notes. Spoke with facilities that were interested in patient. Unfortunately, patient has [place] Medicaid and those facilities were [place] or were [facility] (which are private pay). CM continues to be available to patient/family and is
monitoring medical plan for needs at discharge.
Plan: Discharge to SNF once bed secured.
[2024-04-06] MEDS: LIPITOR PO (15:50)
--- NOTE | 2024-04-06 15:53 | W.PN.PUL3 ---
Today's Communication / Plan
-
Ongoing issues regarding placement noted
We will further look into whether bronchoscopy can be done as inpatient given placement issues etc.
Assessment
-
Initially seen 03/14/2024 in the critical care unit, 54-year-old female from [facility] with a history of depression, hypertension, hyperlipidemia, schizoaffective disorder, bipolar disorder, hypertension, GERD, and CVA who presented with
lethargy noted to have lithium toxicity and acute renal failure.
Patient also has been having some mental health issues. Psychiatry following.
Patient has been in the hospital for 13 days.
Part of evaluation for otitis/otalgia included a CT of the neck that showed no evidence for sinusitis. Incidental right upper lobe lung mass.
Subsequent CT of the chest confirmed a 2.7 cm right lung mass.
-
Incidental-right lung mass 2.7 cm spiculated highly suspicious for malignancy. Consulted on 03/27/2024 for evaluation.
Emphysema on CAT scan.
-
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
Toxic metabolic encephalopathy-back to baseline/resolved.
Anxiety/depression
?Bipolar disorder/schizoaffective disorder
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
Chronic pain syndrome left neck
Ambulatory dysfunction
Hypertension
GERD
History of smoking: Quit at age 51. 1 pack/day for about 30 years.
-
Plan/recommendations
Asked to see patient again regarding pulmonary nodule
Review with patient limitations in ability to do this as an inpatient
Will assess as to whether this can be done in the next week if patient remains inpatient
Jacek this may be difficult
I did review with patient that she baseline images she is high risk for underlying malignancy
Her metabolic issues seem to be improved
Now we are waiting for placement
Will determine as to whether bronchoscopy can be done sooner rather than later however this may be difficult given scheduling and current acute issues
We will continue to follow
Prior discussion
Incidental lung mass on CT of the chest, not evident on chest x-ray 03/14/2024 likely due to location and transposition of other structures.
There is a spiculated pleural-based mass in the posterior right upper lobe consistent with malignancy until proven otherwise. This measures 2.7 x 2.1 cm. This is noncalcified. There is a solid noncalcified pulmonary nodule in the anterior left upper
lobe on image #21 measuring 4 mm.
No pleural effusions
No mediastinal or hilar lymphadenopathy is noted
CT abdomen pelvis without suggesting of metastatic disease.
This mass is highly suggestive of malignancy.
Will need eventual PET/CT
Patient lives alone, she has no family members

Data:
Echocardiogram 03/28/2024: Reviewed.
1. Normal left ventricular size and systolic function without regional wall
motion abnormalities. LV ejection fraction is 55-60% by Allan's method of
discs. Mild concentric left ventricular hypertrophy. Normal diastolic function.
2. Normal right ventricular size and systolic function.
3. No significant valvular abnormalities.
4. No pericardial effusion.
Subjective Data
-
Date of Service:
Date of Service: April 06, 2024
Chief Complaint: Pulmonary Follow Up (Pulmonary reconsulted 03/27/2024 for pulmonary mass)
Subjective:
Asked to see patient again regarding nodule. She denies chest pain, nausea, abdominal pain, shortness of breath
Objective Data
Data Reviewed
Vital Signs / I&O / Oxygen:
Vital Signs
Temp Pulse Resp BP Pulse Ox
97.9 F 67 14 137/72 98
04/06/24 07:30 04/06/24 07:30 04/06/24 07:30 04/06/24 07:30 04/06/24 07:30
Intake and Output
04/05/24 04/06/2404/07/25
06:59 06:59 06:59
Intake Total 0 / 2340 1800 / 1799
Balance 2340 / 2340 1800 / 1800
SaO2 98
Nasal Cannula flow liters per 1
minute
Physical Exam
General: Comfortable
HEENT: Normocephalic
Cardiovascular: S1-S2, Regular Rhythm, Murmur (n), Rub (n) and Peripheral Edema (tr)
Respiratory: Clear, Wheeze ( mild), Crackles (n), Rhonchi (n), Non-Labored Respirations and Stridor (n)
GI: Soft, Non Distended and Non Tender
Neurology: Awake, Alert and No Motor Deficits ( generally weak)
Skin: Cyanosis (n) and Jaundice (n)
Labs/Micro/Reports
Lab Data
03/28/24 06:24
04/06/24 06:00
[2024-04-06 23:27] VITALS: BP 119/62
[2024-04-07] MEDS: ROXICODONE 5 MG PO ×5 (02:37→23:56)
[2024-04-07 05:58] VITALS: BMI 36.8
[2024-04-07 07:35] VITALS: BP 132/71
[2024-04-07] MEDS: ABILIFY 2 MG PO (07:45)
[2024-04-07] MEDS: HEPARIN 5000 UNITS SC ×3 (07:45→23:56)
[2024-04-07] MEDS: ZOLOFT 100 MG PO (07:45)
[2024-04-07] MEDS: NEURONTIN 100 MG PO ×2 (07:45→21:23)
[2024-04-07] MEDS: LIDOCAINE 4% PATCH 1 PATCH TOPICAL ×2 (07:45→10:34)
[2024-04-07] MEDS: LOW STRENGTH ASPIRIN 81 MG PO (07:45)
[2024-04-07] MEDS: PROTONIX 40 MG PO (07:45)
--- NOTE | 2024-04-07 10:03 | CM ---
Addendum entered by Isabella Simon RN 04/07/24 13:36:
[facility] academic computing director for [facility] ([phone]) will be out to assess the patient on Wednesday afternoon for possible acceptance.
Original Note:
Reviewed the chart notes and sent additional referrals via [facility]. SHARONDA spoke with Caio with [facility]. They are still reviewing. CM continues to be available to patient/family and is monitoring medical plan for needs at discharge.
Plan: Discharge to SNF once bed found for senior care placement.
[2024-04-07 10:12] LABS: % Basophils 0.6 % (0-2); % Eosinophils 2.3 % (0-6); % Immature Granulocytes 2.7 % (0-0.5); % Monocytes 8.8 % (1.7-9.3); % Neutrophils 59.6 % (42.2-75.2); Absolute Basophils 0.1 10^3/uL (0-0.2); Absolute Eosinophils 0.2 10^3/uL (0-0.7); Absolute Immature Granulocytes 0.2 10^3/uL (0-0.05); Absolute Lymphocytes 2.3 10^3/uL (1.2-3.4); Absolute Monocytes 0.8 10^3/uL (0.1-0.6); Absolute Neutrophils 5.3 10^3/uL (1.4-6.5); Hemoglobin 10.6 g/dL (12.0-16.0); Mean Corp Hgb Conc. 32.1 g/dL (33.0-37.0); Mean Corpuscular Hgb 29.3 pg (27.0-31.0); Mean Corpuscular Volume 91.2 fL (81.0-99.0); Mean Platelet Volume 9.7 fL (7.4-10.4); Nucleated Red Blood Cells % 0 %; Platelet Count 250 10^3/uL (130-400); Red Blood Cell Count 3.62 10^6/uL (4.20-5.40); Red Cell Dist. Width 15.5 % (11.5-14.5); White Blood Cell Count 8.8 10^3/uL (4.8-10.8)
[2024-04-07 10:26] LABS: ALT (SGPT) 27 U/L (0-35); AST (SGOT) 30 U/L (14-36); Albumin 3.5 g/dl (3.5-5.0); Alkaline Phosphatase 93 U/L (38-126); Blood Urea Nitrogen 31 mg/dl (7-17); Calcium 9.4 mg/dl (8.4-10.2); Carbon Dioxide 28 mmol/L (22-30); Chloride 103 mmol/L (98-107); Estimated Creatinine Clearance 52 ml/min; Glucose 102 mg/dl (70-99); Lipase 67 U/L (23-300); Potassium 4.3 mmol/L (3.5-5.1); Sodium 138 mmol/L (135-145); Total Bilirubin 0.7 mg/dl (0.2-1.3); Total Protein 6.4 g/dl (6.3-8.2)
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
--- NOTE | 2024-04-07 11:23 | W.PN.UPDATE ---
Update Note
Progress Note Update
patient seen chart reviewed. shared with her my talk with pt yesterday as well as with nursing today re importance of her being oob and staying as mobile as possible. nursing will try to get her up out of the chair every hour or so to stretch a
little bit. she had complained of abdominal pain but had a bowel movement last evening. she continues to c.o constipation and noted dr serrano made changes in her bowel regimen. patient reminded that oxy does inc risk of constipation and she should
try to eat a lot of fruits and veggies. shared w her dr de la cruz's note that the bx likely not before apr 24. psych will see her again on wednesday. i considered increasing zoloft but she has only been on 100 mg for a week. there are also powerful
psychosocial factors at work contributing to her dysphoria
--- NOTE | 2024-04-07 11:58 | W.PN.PUL3 ---
Today's Communication / Plan
-
Follow-up with pulmonary with eventual lung biopsy
reviewed with patient high suspicion for malignancy
Patient aware. All questions answered
We will sign off. Please call with questions
Assessment
-
Initially seen 03/14/2024 in the critical care unit, 54-year-old female from [facility] with a history of depression, hypertension, hyperlipidemia, schizoaffective disorder, bipolar disorder, hypertension, GERD, and CVA who presented with
lethargy noted to have lithium toxicity and acute renal failure.
Patient also has been having some mental health issues. Psychiatry following.
Patient has been in the hospital for 13 days.
Part of evaluation for otitis/otalgia included a CT of the neck that showed no evidence for sinusitis. Incidental right upper lobe lung mass.
Subsequent CT of the chest confirmed a 2.7 cm right lung mass.
-
Incidental-right lung mass 2.7 cm spiculated highly suspicious for malignancy. Consulted on 03/27/2024 for evaluation.
Emphysema on CAT scan.
-
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
Toxic metabolic encephalopathy-back to baseline/resolved.
Anxiety/depression
?Bipolar disorder/schizoaffective disorder
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
Chronic pain syndrome left neck
Ambulatory dysfunction
Hypertension
GERD
History of smoking: Quit at age 51. 1 pack/day for about 30 years.
-
Plan/recommendations
At this time, she will require bronchoscopy with tissue biopsy. I discussed with the patient that she likely does have underlying cancer but will need tissue biopsy. This should be done as an outpatient postdischarge
She understands there is no urgency to thsi but should be done post-dc
Per discussion with primary service, ongoing issues regarding placement noted.
I reviewed with the patient. It is imperative that she contact our office for appropriate follow-up and biopsy.
She understands that if she does not follow up post dc, failure to bx or dx will affect her morbidity and mortality
She understands and is appreciative of care
Information left in chart for follow-up
Psychiatry correspondence reviewed. Ongoing medication management noted to treat her dysphoria
We will sign off. Please call with questions
Prior discussion
Incidental lung mass on CT of the chest, not evident on chest x-ray 03/14/2024 likely due to location and transposition of other structures.
There is a spiculated pleural-based mass in the posterior right upper lobe consistent with malignancy until proven otherwise. This measures 2.7 x 2.1 cm. This is noncalcified. There is a solid noncalcified pulmonary nodule in the anterior left upper
lobe on image #21 measuring 4 mm.
No pleural effusions
No mediastinal or hilar lymphadenopathy is noted
CT abdomen pelvis without suggesting of metastatic disease.
This mass is highly suggestive of malignancy.
Will need eventual PET/CT
Patient lives alone, she has no family members

Data:
Echocardiogram 03/28/2024: Reviewed.
1. Normal left ventricular size and systolic function without regional wall
motion abnormalities. LV ejection fraction is 55-60% by Allan's method of
discs. Mild concentric left ventricular hypertrophy. Normal diastolic function.
2. Normal right ventricular size and systolic function.
3. No significant valvular abnormalities.
4. No pericardial effusion.
Subjective Data
-
Date of Service:
Date of Service: April 07, 2024
Chief Complaint: Pulmonary Follow Up (Pulmonary reconsulted 03/27/2024 for pulmonary mass)
Subjective:
Patient is without complaints
Objective Data
Data Reviewed
Vital Signs / I&O / Oxygen:
Vital Signs
Temp Pulse Resp BP Pulse Ox
97.8 F 61 16 132/71 98
04/07/24 07:35 04/07/24 07:35 04/07/24 07:35 04/07/24 07:35 04/07/24 07:35
Intake and Output
04/06/24 04/07/24 04/08/24
06:59 06:59 06:59
Intake Total 1800 / 1800 2400 / 2400
Balance 1800 / 1800 2400 / 2400
SaO2 98
Nasal Cannula flow liters per 1
minute
Physical Exam
General: Comfortable
HEENT: Normocephalic
Cardiovascular: S1-S2, Regular Rhythm, Murmur (n), Rub (n) and Peripheral Edema (tr)
Respiratory: Clear, Wheeze ( mild), Crackles (n), Rhonchi (n), Non-Labored Respirations and Stridor (n)
GI: Soft, Non Distended and Non Tender
Neurology: Awake, Alert and No Motor Deficits ( generally weak)
Skin: Cyanosis (n) and Jaundice (n)
Labs/Micro/Reports
Lab Data
04/07/24 09:41
04/07/24 09:41
[2024-04-07 15:22] VITALS: BP 120/74; PULSE 76; O2SAT 98
[2024-04-07 15:30] VITALS: BP 113/68
[2024-04-07] MEDS: LIPITOR PO (16:05)
[2024-04-07] MEDS: SENOKOT-S 1 TABLET PO (19:50)
[2024-04-07 23:40] VITALS: BP 110/60
[2024-04-08] MEDS: ROXICODONE 5 MG PO ×4 (04:02→19:56)
[2024-04-08 06:00] VITALS: BMI 36.9
[2024-04-08 07:30] VITALS: BP 121/66
[2024-04-08] MEDS: LIDOCAINE 4% PATCH 1 PATCH TOPICAL ×2 (08:39→08:41)
[2024-04-08] MEDS: PROTONIX 40 MG PO (08:40)
[2024-04-08] MEDS: ABILIFY 2 MG PO (08:40)
[2024-04-08] MEDS: SENOKOT-S PO ×3 (08:40→19:56)
[2024-04-08] MEDS: ZOLOFT 100 MG PO (08:40)
[2024-04-08] MEDS: LOW STRENGTH ASPIRIN 81 MG PO (08:41)
[2024-04-08] MEDS: HEPARIN 5000 UNITS SC ×3 (08:41→23:49)
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
[2024-04-08 15:30] VITALS: BP 119/70
[2024-04-08] MEDS: LIPITOR PO (15:42)
[2024-04-08] MEDS: NEURONTIN 100 MG PO (22:19)
[2024-04-08 23:38] VITALS: BP 111/63
[2024-04-09] MEDS: ROXICODONE 5 MG PO ×6 (00:01→23:11)
[2024-04-09 05:39] VITALS: BMI 37.8
[2024-04-09 07:30] VITALS: BP 139/74
[2024-04-09] MEDS: LIDOCAINE 4% PATCH 1 PATCH TOPICAL ×2 (09:27)
[2024-04-09] MEDS: ZOLOFT 100 MG PO (09:28)
[2024-04-09] MEDS: HEPARIN 5000 UNITS SC ×3 (09:28→23:09)
[2024-04-09] MEDS: ABILIFY 2 MG PO (09:28)
[2024-04-09] MEDS: PROTONIX 40 MG PO (09:28)
[2024-04-09] MEDS: LOW STRENGTH ASPIRIN 81 MG PO (09:29)
[2024-04-09] MEDS: SENOKOT-S PO ×2 (09:29→21:26)
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
[2024-04-09 15:30] VITALS: BP 120/64
[2024-04-09] MEDS: LIPITOR PO (17:13)
[2024-04-09] MEDS: NEURONTIN 100 MG PO (21:26)
[2024-04-09 23:20] VITALS: BP 112/58
[2024-04-10] MEDS: ROXICODONE 5 MG PO ×5 (03:53→23:36)
[2024-04-10 06:00] VITALS: BMI 37.1
[2024-04-10] MEDS: LIDOCAINE 4% PATCH 1 PATCH TOPICAL ×2 (08:00)
[2024-04-10] MEDS: HEPARIN 5000 UNITS SC ×3 (08:00→23:36)
[2024-04-10] MEDS: ZOLOFT 100 MG PO (08:02)
[2024-04-10] MEDS: ABILIFY 2 MG PO (08:02)
[2024-04-10] MEDS: PROTONIX 40 MG PO (08:02)
[2024-04-10] MEDS: LOW STRENGTH ASPIRIN 81 MG PO (08:02)
[2024-04-10] MEDS: SENOKOT-S PO ×2 (08:02→20:51)
[2024-04-10 08:10] VITALS: BP 111/61
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
--- NOTE | 2024-04-10 13:06 | W.PN.HOSP.TC ---
Today's Communication/Plan
-
Assessment / Plan
Assessment / Plan
NAD
Scleral Anicteric
MMM
No JVD
CTABL
RRR, S1/S2
Soft, NT, ND, BS+
Warm, Dry
AAOx3
Calm
Toxic metabolic encephalopathy secondary to lithium toxicity�resolved
TERESSA secondary to lithium toxicity�resolved
-S/p temporary hemodialysis
Bipolar disorder versus schizoaffective-per psychiatry continue to hold lithium indefinitely, increase Abilify
Spiculated 2.7 right lung mass�outpatient bronchoscopy and pulmonary follow-up
CVA history continue statin and aspirin
Ambulatory dysfunction�return to rehab
Glossopharyngeal neuralgia�evaluated by ENT, DC antibiotics, continue gabapentin
Appendicolith measuring 5 mm without evidence of appendicitis
Asymptomatic cholelithiasis outpatient surgery follow-up
Anticipated Discharge: Within 24 hours
Subjective/Interval History
-
Date of Service: April 10, 2024
Seen and examined. No acute complaint
Objective Data
-
Vital Signs:
Vital Signs
Temp Pulse Resp BP Pulse Ox
97.8 F 70 12 111/61 98
04/10/24 08:10 04/10/24 08:10 04/10/24 08:10 04/10/24 08:10 04/10/24 10:34
I&O
04/09/24 04/10/24 04/11/24
06:59 06:59 06:59
Intake Total 3299 / 3300 1919
Balance 3300 / 3300 1919
[2024-04-10 15:00] VITALS: BP 96/55; PULSE 75; O2SAT 97
[2024-04-10 15:20] VITALS: BP 104/76
[2024-04-10] MEDS: LIPITOR PO ×2 (17:01→17:03)
[2024-04-10] MEDS: NEURONTIN 100 MG PO (20:51)
[2024-04-10 23:31] VITALS: BP 110/64
[2024-04-11] MEDS: ROXICODONE 5 MG PO ×4 (05:25→21:33)
[2024-04-11 05:47] VITALS: BMI 37.8
[2024-04-11 07:55] VITALS: BP 110/72
[2024-04-11] MEDS: ABILIFY 2 MG PO (08:09)
[2024-04-11] MEDS: SENOKOT-S PO ×2 (08:09→20:01)
[2024-04-11] MEDS: LOW STRENGTH ASPIRIN 81 MG PO (08:10)
[2024-04-11] MEDS: HEPARIN 5000 UNITS SC ×3 (08:10→23:03)
[2024-04-11] MEDS: ZOLOFT 100 MG PO (08:10)
[2024-04-11] MEDS: LIDOCAINE 4% PATCH 1 PATCH TOPICAL ×2 (08:10→08:11)
[2024-04-11] MEDS: PROTONIX 40 MG PO (08:10)
[2024-04-11 09:22] VITALS: BP 125/71; PULSE 67; O2SAT 96
--- NOTE | 2024-04-11 10:27 | CM ---
Reviewed the chart notes. SHARONDA spoke with negrito [place] director mortgage for [facility] ([phone]) who was supposed to evaluate the patient yesterday. Per Zuleika, her DON was concerned regarding the patient being able to make
own decisions. Discussed with Zuleika that patient is capable of making decisions. Zuleika will be out to assess the patient this afternoon. CM continues to be available to patient/family and is monitoring medical plan for needs at discharge.
Plan: Discharge to SNF once bed available.
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
--- NOTE | 2024-04-11 12:18 | W.PN.HOSP.TC ---
Today's Communication/Plan
-
Pending SNF/placement this is a disposition issue
Assessment / Plan
Assessment / Plan
NAD
Scleral Anicteric
MMM
No JVD
CTABL
RRR, S1/S2
Soft, NT, ND, BS+
Warm, Dry
AAOx3
Calm
Toxic metabolic encephalopathy secondary to lithium toxicity�resolved
TERESSA secondary to lithium toxicity�resolved
-S/p temporary hemodialysis
Bipolar disorder versus schizoaffective-per psychiatry continue to hold lithium indefinitely, increase Abilify
Spiculated 2.7 right lung mass�outpatient bronchoscopy and pulmonary follow-up
CVA history continue statin and aspirin
Ambulatory dysfunction�return to rehab
Glossopharyngeal neuralgia�evaluated by ENT, DC antibiotics, continue gabapentin
Appendicolith measuring 5 mm without evidence of appendicitis
Asymptomatic cholelithiasis outpatient surgery follow-up
Anticipated Discharge: Within 24 hours
Subjective/Interval History
-
Date of Service: April 11, 2024
Seen and examined. No new complaints. No acute overnight events.
Objective Data
-
Vital Signs:
Vital Signs
Temp Pulse Resp BP Pulse Ox
98.2 F 62 16 110/72 96
04/11/24 07:55 04/11/24 07:55 04/11/24 07:55 04/11/24 07:55 04/11/24 08:00
I&O
04/10/24 04/11/24 04/12/24
06:59 06:59 06:59
Intake Total 1919
Balance 1919
[2024-04-11 15:42] VITALS: BP 111/58
--- NOTE | 2024-04-11 16:38 | PTCARENOTE ---
cessation of respiration and no audible apical heart sounds. attending notified. cross coverage at bedside to pronounce. support offered to family who remains at bedside. declined [facility].
--- NOTE | 2024-04-11 17:00 | PTCARENOTE ---
Addendum entered by Kira Bland RN 04/11/24 17:51:
per psychiatry and attending pt does not require 1:1 observation. assistant case manager aware
Original Note:
pt had interview with [facility], who reported to this nurse pt had expressed thoughts of wanting to kill herself. This nurse promptly completed SI screening, notified attending and psychiatry and Nurse Mind Reader. Pt states
she has no active plan to kill herself but does want to . extensive conversation R/T previous attempt. Pt states she feels safe here. Pt instructed to tell staff if she ever feels overwhelming or suicidal thoughts, pt expressed understanding and
stated she will tell staff if she feels her mental state starts to decline.
[2024-04-11] MEDS: LIPITOR PO (17:10)
[2024-04-11] MEDS: NEURONTIN 100 MG PO (21:34)
[2024-04-11 23:30] VITALS: BP 109/57
[2024-04-12] MEDS: ROXICODONE 5 MG PO ×4 (01:36→18:31)
[2024-04-12 08:00] VITALS: BP 141/81
[2024-04-12] MEDS: LIDOCAINE 4% PATCH 1 PATCH TOPICAL ×2 (08:11)
[2024-04-12] MEDS: HEPARIN 5000 UNITS SC (08:12)
[2024-04-12] MEDS: LOW STRENGTH ASPIRIN 81 MG PO (08:12)
[2024-04-12] MEDS: ZOLOFT 100 MG PO (08:12)
[2024-04-12] MEDS: ABILIFY 2 MG PO (08:12)
[2024-04-12] MEDS: SENOKOT-S PO ×3 (08:14→21:08)
--- NOTE | 2024-04-12 09:53 | CM ---
Reviewed the chart notes. CM spoke with admissions liaison with [facility]. Patient was accepted in [facility], but unfortunately there are no female beds available. negrito [place] child care director for [facility] ([phone])
evaluated the patient late yesterday at the bedside. CM left voice message to discuss findings. CM continues to be available to patient/family and is monitoring medical plan for needs at discharge.
Plan: Discharge to SNF once a bed is found.
--- NOTE | 2024-04-12 10:59 | W.PN.HOSP.TC ---
Today's Communication/Plan
-
Assessment / Plan
Assessment / Plan
NAD
Scleral Anicteric
MMM
No JVD
CTABL
RRR, S1/S2
Soft, NT, ND, BS+
Warm, Dry
AAOx3
Calm
Toxic metabolic encephalopathy secondary to lithium toxicity�resolved
TERESSA secondary to lithium toxicity�resolved
-S/p temporary hemodialysis
Bipolar disorder versus schizoaffective-per psychiatry continue to hold lithium indefinitely, increase Abilify
Spiculated 2.7 right lung mass�outpatient bronchoscopy and pulmonary follow-up
CVA history continue statin and aspirin
Ambulatory dysfunction�return to rehab
Glossopharyngeal neuralgia�evaluated by ENT, DC antibiotics, continue gabapentin
Appendicolith measuring 5 mm without evidence of appendicitis
Asymptomatic cholelithiasis outpatient surgery follow-up
Pending placement. medically cleared
Anticipated Discharge: Within 24 hours
Subjective/Interval History
-
Date of Service: April 12, 2024
seen and examined
no new complaints
no acute overnight events
Objective Data
-
Vital Signs:
Vital Signs
Temp Pulse Resp BP Pulse Ox
98.6 F 67 17 141/81 98
04/12/24 08:00 04/12/24 08:00 04/12/24 08:00 04/12/24 08:00 04/12/24 08:00
I&O
04/11/24 04/12/24 04/13/24
06:59 06:59 06:59
Intake Total 0 / 0 3240 / 3240
Balance 2269 / 0 3240 / 3240
[2024-04-12 11:40] VITALS: BP 119/65; PULSE 71; O2SAT 95
[2024-04-12 15:54] VITALS: BP 117/66
[2024-04-12] MEDS: LIPITOR PO (18:32)
[2024-04-12] MEDS: NEURONTIN 100 MG PO (21:06)
[2024-04-12 23:13] VITALS: BP 108/53
[2024-04-13] MEDS: ROXICODONE 5 MG PO ×6 (00:08→22:42)
[2024-04-13 07:48] VITALS: BP 124/60
[2024-04-13] MEDS: ABILIFY 2 MG PO (09:17)
[2024-04-13] MEDS: SENOKOT-S PO ×3 (09:17→21:41)
[2024-04-13] MEDS: ZOLOFT 100 MG PO (09:17)
[2024-04-13] MEDS: LIDOCAINE 4% PATCH 1 PATCH TOPICAL ×2 (09:18)
[2024-04-13] MEDS: LOW STRENGTH ASPIRIN 81 MG PO (09:18)
[2024-04-13 09:43] VITALS: BMI 37.8
--- NOTE | 2024-04-13 10:55 | W.PN.HOSP.TC ---
Today's Communication/Plan
-
pending placement
Assessment / Plan
Assessment / Plan
NAD
Scleral Anicteric
MMM
No JVD
CTABL
RRR, S1/S2
Soft, NT, ND, BS+
Warm, Dry
AAOx3
Calm
Toxic metabolic encephalopathy secondary to lithium toxicity�resolved
TERESSA secondary to lithium toxicity�resolved
-S/p temporary hemodialysis
Bipolar disorder versus schizoaffective-per psychiatry continue to hold lithium indefinitely, increase Abilify
Spiculated 2.7 right lung mass�outpatient bronchoscopy and pulmonary follow-up
CVA history continue statin and aspirin
Ambulatory dysfunction�return to rehab
Glossopharyngeal neuralgia�evaluated by ENT, DC antibiotics, continue gabapentin
Appendicolith measuring 5 mm without evidence of appendicitis
Asymptomatic cholelithiasis outpatient surgery follow-up
Pending placement. medically cleared
Anticipated Discharge: Within 24 hours
Subjective/Interval History
-
Date of Service: April 13, 2024
seen and examined. no new complaints. no acute overnight events
Objective Data
-
Vital Signs:
Vital Signs
Temp Pulse Resp BP Pulse Ox
98.2 F 63 16 124/60 95
04/13/24 07:48 04/13/24 07:48 04/13/24 07:48 04/13/24 07:48 04/13/24 07:48
I&O
04/12/24 04/13/24 04/14/24
06:59 06:59 06:59
Intake Total 3240 / 3240 1560 / 1560
Balance 3240 / 3240 1560 / 1560
--- NOTE | 2024-04-13 11:53 | CM ---
Reviewed the chart notes. Permission received from the patient to send additional referrals Referrals sent via [facility]. CM continues to be available to patient/family and is monitoring medical plan for needs at discharge.
Plan: Discharge to SNF once bed found.
[2024-04-13 12:44] VITALS: BP 137/78
[2024-04-13 15:24] VITALS: BP 122/67
[2024-04-13] MEDS: LIPITOR PO (17:30)
[2024-04-13] MEDS: HEPARIN 5000 UNITS SC (21:40)
[2024-04-13] MEDS: NEURONTIN 100 MG PO (21:41)
[2024-04-13 23:07] VITALS: BP 119/67
[2024-04-14 05:17] VITALS: BMI 38.0
[2024-04-14] MEDS: ROXICODONE 5 MG PO ×4 (06:31→23:25)
[2024-04-14 07:33] VITALS: BP 126/69
[2024-04-14] MEDS: ZOLOFT 100 MG PO (09:36)
[2024-04-14] MEDS: LOW STRENGTH ASPIRIN 81 MG PO (09:36)
[2024-04-14] MEDS: SENOKOT-S 1 TABLET PO (09:36)
[2024-04-14] MEDS: ABILIFY 2 MG PO (09:36)
[2024-04-14] MEDS: LIDOCAINE 4% PATCH 1 PATCH TOPICAL ×2 (09:37→09:38)
[2024-04-14] MEDS: HEPARIN 5000 UNITS SC ×2 (09:38→20:28)
--- NOTE | 2024-04-14 10:27 | W.PN.HOSP.TC ---
Today's Communication/Plan
-
Assessment / Plan
Assessment / Plan
NAD
Scleral Anicteric
MMM
No JVD
CTABL
RRR, S1/S2
Soft, NT, ND, BS+
Warm, Dry
AAOx3
Calm
Toxic metabolic encephalopathy secondary to lithium toxicity�resolved
TERESSA secondary to lithium toxicity�resolved
-S/p temporary hemodialysis
Bipolar disorder versus schizoaffective-per psychiatry continue to hold lithium indefinitely, increase Abilify
Spiculated 2.7 right lung mass�outpatient bronchoscopy and pulmonary follow-up
CVA history continue statin and aspirin
Ambulatory dysfunction�return to rehab
Glossopharyngeal neuralgia�evaluated by ENT, DC antibiotics, continue gabapentin
Appendicolith measuring 5 mm without evidence of appendicitis
Asymptomatic cholelithiasis outpatient surgery follow-up
Pending placement. medically cleared
Anticipated Discharge: Within 24 hours
Subjective/Interval History
-
Date of Service: April 14, 2024
seen and examined. no new complaints. no acute ovenright events
Objective Data
-
Vital Signs:
Vital Signs
Temp Pulse Resp BP Pulse Ox
97.9 F 62 18 126/69 96
04/14/24 07:33 04/14/24 07:33 04/14/24 07:33 04/14/24 07:33 04/14/24 07:33
I&O
04/13/24 04/14/24 04/15/24
06:59 06:59 06:59
Intake Total 1560 / 1560 1739 / 174
Balance 1560 / 1560 1739 / 174
[2024-04-14 11:53] VITALS: BP 123/79; PULSE 69
--- NOTE | 2024-04-14 14:50 | CM ---
Reviewed the chart notes. Thus far no facilities are able to accept the patient at this time. CM continues to be available to patient/family and is monitoring medical plan for needs at discharge.
Plan: Discharge to SNF once bed found.
[2024-04-14 15:17] VITALS: BP 119/65
[2024-04-14] MEDS: LIPITOR PO (17:40)
[2024-04-14] MEDS: SENOKOT-S PO (20:29)
[2024-04-14 23:05] VITALS: BP 110/60
[2024-04-14] MEDS: NEURONTIN 100 MG PO (23:24)
[2024-04-15] MEDS: ROXICODONE 5 MG PO ×4 (05:41→21:09)
[2024-04-15 06:00] VITALS: BMI 37.9
[2024-04-15 07:00] VITALS: BP 123/75
[2024-04-15] MEDS: HEPARIN 5000 UNITS SC ×2 (08:54→20:28)
[2024-04-15] MEDS: ABILIFY 2 MG PO (08:55)
[2024-04-15] MEDS: LIDOCAINE 4% PATCH 1 PATCH TOPICAL ×2 (08:55→08:56)
[2024-04-15] MEDS: ZOLOFT 100 MG PO (08:55)
[2024-04-15] MEDS: LOW STRENGTH ASPIRIN 81 MG PO (08:55)
[2024-04-15] MEDS: SENOKOT-S PO ×2 (08:56→20:29)
--- NOTE | 2024-04-15 10:42 | W.PN.HOSP.TC ---
Today's Communication/Plan
-
Disposition issue. Goal to find placement due to behavioral/psychiatric issue
Assessment / Plan
Assessment / Plan
NAD
Scleral Anicteric
MMM
No JVD
CTABL
RRR, S1/S2
Soft, NT, ND, BS+
Warm, Dry
AAOx3
Calm
Toxic metabolic encephalopathy secondary to lithium toxicity�resolved
TERESSA secondary to lithium toxicity�resolved
-S/p temporary hemodialysis
Bipolar disorder versus schizoaffective-per psychiatry continue to hold lithium indefinitely, increase Abilify
Spiculated 2.7 right lung mass�outpatient bronchoscopy and pulmonary follow-up
CVA history continue statin and aspirin
Ambulatory dysfunction�return to rehab
Glossopharyngeal neuralgia�evaluated by ENT, DC antibiotics, continue gabapentin
Appendicolith measuring 5 mm without evidence of appendicitis
Asymptomatic cholelithiasis outpatient surgery follow-up
Pending placement. medically cleared
Anticipated Discharge: > 48 hours
Subjective/Interval History
-
Date of Service: April 15, 2024
Seen and examined. No new complaints. No acute overnight events.
Objective Data
-
Vital Signs:
Vital Signs
Temp Pulse Resp BP Pulse Ox
97.9 F 62 18 123/75 96
04/15/24 07:00 04/15/24 07:00 04/15/24 07:00 04/15/24 07:00 04/15/24 09:59
I&O
04/14/24 04/15/24 04/16/24
06:59 06:59 06:59
Intake Total 1740 / 1740 1320 / 1320
Balance 1740 / 1740 1320 / 1320
[2024-04-15 15:30] VITALS: BP 120/80
[2024-04-15] MEDS: LIPITOR PO (16:42)
[2024-04-15] MEDS: NEURONTIN 100 MG PO (21:08)
[2024-04-15 23:30] VITALS: BP 122/64
[2024-04-16] MEDS: ROXICODONE 5 MG PO ×4 (06:30→22:51)
[2024-04-16 07:55] VITALS: BP 123/75
[2024-04-16] MEDS: SENOKOT-S PO ×3 (08:30→20:24)
[2024-04-16] MEDS: HEPARIN 5000 UNITS SC ×2 (09:28→20:17)
[2024-04-16] MEDS: LIDOCAINE 4% PATCH 1 PATCH TOPICAL ×2 (09:29)
[2024-04-16] MEDS: ABILIFY 2 MG PO (09:30)
[2024-04-16] MEDS: ZOLOFT 100 MG PO (09:30)
[2024-04-16] MEDS: LOW STRENGTH ASPIRIN 81 MG PO (09:30)
--- NOTE | 2024-04-16 11:25 | W.PN.HOSP.TC ---
Today's Communication/Plan
-
Pending placement
Assessment / Plan
Assessment / Plan
NAD
Scleral Anicteric
MMM
No JVD
CTABL
RRR, S1/S2
Soft, NT, ND, BS+
Warm, Dry
AAOx3
Calm
Toxic metabolic encephalopathy secondary to lithium toxicity�resolved
TERESSA secondary to lithium toxicity�resolved
-S/p temporary hemodialysis
Bipolar disorder versus schizoaffective-per psychiatry continue to hold lithium indefinitely, increase Abilify
Spiculated 2.7 right lung mass�outpatient bronchoscopy and pulmonary follow-up
CVA history continue statin and aspirin
Ambulatory dysfunction�return to rehab
Glossopharyngeal neuralgia�evaluated by ENT, DC antibiotics, continue gabapentin
Appendicolith measuring 5 mm without evidence of appendicitis
Asymptomatic cholelithiasis outpatient surgery follow-up
Pending placement. medically cleared
Anticipated Discharge: Within 24 hours ( )
Subjective/Interval History
-
Date of Service: April 16, 2024
seen and exained. no new complaints. no acute ovenright events
Objective Data
-
Vital Signs:
Vital Signs
Temp Pulse Resp BP Pulse Ox
97.8 F 68 18 123/75 96
04/16/24 07:55 04/16/24 07:55 04/16/24 07:55 04/16/24 07:55 04/16/24 07:55
I&O
04/15/24 04/16/24 04/17/24
06:59 06:59 06:59
Intake Total 1320 / 1320 1440 / 1440
Balance 1320 / 1320 1440 / 1440
[2024-04-16 15:19] VITALS: BP 121/71
[2024-04-16 15:43] VITALS: BP 125/77; PULSE 75; O2SAT 97
[2024-04-16] MEDS: LIPITOR PO (17:08)
[2024-04-16] MEDS: NEURONTIN 100 MG PO (20:17)
[2024-04-16 23:39] VITALS: BP 136/69
[2024-04-17] MEDS: ROXICODONE 5 MG PO ×4 (07:10→23:59)
[2024-04-17 07:34] VITALS: BP 134/81
[2024-04-17] MEDS: ZOLOFT 100 MG PO (08:51)
[2024-04-17] MEDS: HEPARIN 5000 UNITS SC ×2 (08:51→20:08)
[2024-04-17] MEDS: LOW STRENGTH ASPIRIN 81 MG PO (08:52)
[2024-04-17] MEDS: ABILIFY 2 MG PO (08:52)
[2024-04-17] MEDS: LIDOCAINE 4% PATCH 1 PATCH TOPICAL ×2 (08:52→08:53)
[2024-04-17] MEDS: SENOKOT-S PO ×2 (09:07→20:03)
--- NOTE | 2024-04-17 09:30 | W.PN.HOSP.TC ---
Today's Communication/Plan
-
dispo planning
Assessment / Plan
Assessment / Plan
Toxic metabolic encephalopathy secondary to lithium toxicity�resolved
TERESSA secondary to lithium toxicity�resolved
-S/p temporary hemodialysis
Bipolar disorder versus schizoaffective-per psychiatry continue to hold lithium indefinitely, increase Abilify
Spiculated 2.7 right lung mass�outpatient bronchoscopy and pulmonary follow-up
CVA history continue statin and aspirin
Ambulatory dysfunction�return to rehab
Glossopharyngeal neuralgia�evaluated by ENT, DC antibiotics, continue gabapentin
Appendicolith measuring 5 mm without evidence of appendicitis
Asymptomatic cholelithiasis outpatient surgery follow-up
Pending placement. medically cleared
Anticipated Discharge: > 48 hours
Subjective/Interval History
-
Date of Service: April 17, 2024
she wants to resume her protonix, some indigestion
Objective Data
-
Vital Signs:
Vital Signs
Temp Pulse Resp BP Pulse Ox
97.9 F 66 17 134/81 96
04/17/24 07:34 04/17/24 07:34 04/17/24 07:34 04/17/24 07:34 04/17/24 07:34
I&O
04/16/24 04/17/24 04/18/24
06:59 06:59 06:59
Intake Total 1440 / 1440 1500 / 1500
Balance 1440 / 1440 1500 / 1500
Review of Systems
-
History Source: Patient
All other systems: Reviewed and negative
Physical Exam
-
General: No Apparent Distress
GI: Soft, Nontender and Nondistended
Skin: Warm
Neuro: Awake, Alert, Oriented and AO x 3
Psych: Calm
Data Reviewed
-
Diagnostic Radiology: Report Reviewed by me
Labs: Labs Reviewed by me
[2024-04-17] MEDS: PROTONIX 40 MG PO (10:16)
--- NOTE | 2024-04-17 10:42 | CM ---
Reviewed the chart notes and spoke with the patient at the bedside. CM explained to the patient that thus far no facilities willing to accept and would she consider returning to [facility] if they would accept. The patient is not interested in
[facility]. Updated referrals sent. CM continues to be available to patient/family and is monitoring medical plan for needs at discharge.
Plan: Discharge to SNF once a bed is found.
[2024-04-17 15:29] VITALS: BP 126/61
[2024-04-17] MEDS: LIPITOR PO (17:17)
[2024-04-17] MEDS: NEURONTIN 100 MG PO (20:08)
[2024-04-17 23:49] VITALS: BP 115/66
[2024-04-18] MEDS: ROXICODONE 5 MG PO ×3 (05:09→16:32)
[2024-04-18 07:12] VITALS: BP 118/68
[2024-04-18] MEDS: LIDOCAINE 4% PATCH 1 PATCH TOPICAL ×2 (08:03→08:04)
[2024-04-18] MEDS: PROTONIX 40 MG PO (08:03)
[2024-04-18] MEDS: ZOLOFT 100 MG PO (08:03)
[2024-04-18] MEDS: LOW STRENGTH ASPIRIN 81 MG PO (08:03)
[2024-04-18] MEDS: SENOKOT-S PO ×3 (08:03→20:01)
[2024-04-18] MEDS: ABILIFY 2 MG PO (08:03)
[2024-04-18] MEDS: HEPARIN 5000 UNITS SC ×2 (08:04→20:02)
--- NOTE | 2024-04-18 09:15 | W.PN.HOSP.TC ---
Today's Communication/Plan
-
dispo planning
Assessment / Plan
Assessment / Plan
Toxic metabolic encephalopathy secondary to lithium toxicity�resolved
TERESSA secondary to lithium toxicity�resolved
-S/p temporary hemodialysis
Bipolar disorder versus schizoaffective-per psychiatry continue to hold lithium indefinitely, increase Abilify
Spiculated 2.7 right lung mass�outpatient bronchoscopy and pulmonary follow-up
CVA history continue statin and aspirin
Ambulatory dysfunction�return to rehab
Glossopharyngeal neuralgia�evaluated by ENT, DC antibiotics, continue gabapentin
Appendicolith measuring 5 mm without evidence of appendicitis
Asymptomatic cholelithiasis outpatient surgery follow-up
Pending placement. medically cleared
Anticipated Discharge: > 48 hours
Subjective/Interval History
-
Date of Service: April 18, 2024
no new complaints
Objective Data
-
Vital Signs:
Vital Signs
Temp Pulse Resp BP Pulse Ox
97.7 F 61 16 118/68 95
04/18/24 07:12 04/18/24 07:12 04/18/24 07:12 04/18/24 07:12 04/18/24 08:00
I&O
04/17/24 04/18/24 04/19/24
06:59 06:59 06:59
Intake Total 1500 / 1500 1859
Balance 1500 / 1500 1859
Review of Systems
-
History Source: Patient
All other systems: Reviewed and negative
Physical Exam
-
General: No Apparent Distress
HEENT: PERRLA
Respiratory: Clear to Auscultation; Negative Wheezes
GI: Soft, Nontender and Nondistended
Skin: Warm
Neuro: Awake, Alert, Oriented and AO x 3
Psych: Calm
Data Reviewed
-
Diagnostic Radiology: Report Reviewed by me
Labs: Labs Reviewed by me
[2024-04-18 10:10] VITALS: PULSE 74; O2SAT 97
[2024-04-18 15:06] VITALS: BP 115/64
--- NOTE | 2024-04-18 15:24 | CM ---
Reviewed the chart notes. Additional referrals sent in [facility]. CM continues to be available to patient/family and is monitoring medical plan for needs at discharge.
Plan: Discharge to SNF once bed secured and auth obtained.
[2024-04-18] MEDS: LIPITOR PO (17:40)
[2024-04-18] MEDS: NEURONTIN 100 MG PO (20:00)
[2024-04-18 23:20] VITALS: BP 124/66
--- NOTE | 2024-04-19 04:25 | DOWNTIME ---
There was a [employer] Client Release Engineer Downtime on 04/19/2024 from 0100 to 04/19/2023 at 0235 . Downtime documentation of patient's care, including medication administrations, has been reconciled in the electronic record per guidelines. Refer to the
patient's paper chart under the miscellaneous tab to see printed paper medication records and downtime forms.
[2024-04-19 07:53] VITALS: BP 143/76
[2024-04-19] MEDS: ROXICODONE 5 MG PO ×4 (07:57→21:35)
--- NOTE | 2024-04-19 09:08 | W.PN.HOSP.TC ---
Today's Communication/Plan
-
dispo planning
Assessment / Plan
Assessment / Plan
Toxic metabolic encephalopathy secondary to lithium toxicity�resolved
TERESSA secondary to lithium toxicity�resolved
-S/p temporary hemodialysis
Bipolar disorder versus schizoaffective-per psychiatry continue to hold lithium indefinitely, increase Abilify
Spiculated 2.7 right lung mass�outpatient bronchoscopy and pulmonary follow-up
CVA history continue statin and aspirin
Ambulatory dysfunction�return to rehab
Glossopharyngeal neuralgia�evaluated by ENT, DC antibiotics, continue gabapentin
Appendicolith measuring 5 mm without evidence of appendicitis
Asymptomatic cholelithiasis outpatient surgery follow-up
Pending placement. medically cleared
Anticipated Discharge: > 48 hours
Subjective/Interval History
-
Date of Service: April 19, 2024
no new complaints
comfortably watching television
Objective Data
-
Vital Signs:
Vital Signs
Temp Pulse Resp BP Pulse Ox
97.8 F 63 12 143/76 98
04/19/24 07:53 04/19/24 07:53 04/19/24 07:53 04/19/24 07:53 04/19/24 07:53
I&O
04/18/24 04/19/24 04/20/24
06:59 06:59 06:59
Intake Total 1859
Balance 1859
Review of Systems
-
History Source: Patient
All other systems: Reviewed and negative
Physical Exam
-
General: No Apparent Distress
HEENT: PERRLA
Respiratory: Clear to Auscultation; Negative Wheezes
GI: Soft, Nontender and Nondistended
Skin: Warm
Neuro: Awake, Alert, Oriented and AO x 3
Psych: Calm
Data Reviewed
-
Diagnostic Radiology: Report Reviewed by me
Labs: Labs Reviewed by me
[2024-04-19] MEDS: HEPARIN 5000 UNITS SC ×2 (09:33→21:11)
[2024-04-19] MEDS: LOW STRENGTH ASPIRIN 81 MG PO (09:33)
[2024-04-19] MEDS: PROTONIX 40 MG PO (09:33)
[2024-04-19] MEDS: ABILIFY 2 MG PO (09:33)
[2024-04-19] MEDS: ZOLOFT 100 MG PO (09:33)
[2024-04-19] MEDS: SENOKOT-S PO ×2 (09:38→21:31)
[2024-04-19] MEDS: LIDOCAINE 4% PATCH 1 PATCH TOPICAL ×2 (09:39→09:41)
[2024-04-19 16:00] VITALS: BP 123/68
--- NOTE | 2024-04-19 16:07 | CM ---
Reviewed the chart notes. Updated referrals sent via [facility]. CM continues to be available to patient/family and is monitoring medical plan for needs at discharge.
Plan: Discharge to SNF once bed found.
[2024-04-19] MEDS: LIPITOR PO (17:29)
[2024-04-19] MEDS: NEURONTIN 100 MG PO (21:13)
[2024-04-19 23:26] VITALS: BP 120/64
[2024-04-20 06:47] VITALS: BMI 37.9
[2024-04-20] MEDS: ROXICODONE 5 MG PO ×4 (06:49→20:53)
[2024-04-20 07:52] VITALS: BP 133/76
--- NOTE | 2024-04-20 08:39 | W.PN.HOSP.TC ---
Today's Communication/Plan
-
dispo planning
Assessment / Plan
Assessment / Plan
Toxic metabolic encephalopathy secondary to lithium toxicity�resolved
TERESSA secondary to lithium toxicity�resolved
-S/p temporary hemodialysis
Bipolar disorder versus schizoaffective-per psychiatry continue to hold lithium indefinitely, increase Abilify
Spiculated 2.7 right lung mass�outpatient bronchoscopy and pulmonary follow-up
CVA history continue statin and aspirin
Ambulatory dysfunction�return to rehab
Glossopharyngeal neuralgia�evaluated by ENT, DC antibiotics, continue gabapentin
Appendicolith measuring 5 mm without evidence of appendicitis
Asymptomatic cholelithiasis outpatient surgery follow-up
Pending placement. medically cleared
Anticipated Discharge: > 48 hours
Subjective/Interval History
-
Date of Service: April 20, 2024
no new complaints
plans to get into the chair today
Objective Data
-
Vital Signs:
Vital Signs
Temp Pulse Resp BP Pulse Ox
98.3 F 68 14 133/76 98
04/20/24 07:52 04/20/24 07:52 04/20/24 07:52 04/20/24 07:52 04/20/24 07:52
I&O
04/19/24 04/20/24 04/21/24
06:59 06:59 06:59
Intake Total 2340 / 2340 520 / 520
Balance 2340 / 2340 520 / 520
Review of Systems
-
History Source: Patient
All other systems: Reviewed and negative
Physical Exam
-
General: No Apparent Distress
HEENT: PERRLA
Respiratory: Clear to Auscultation; Negative Wheezes
GI: Soft, Nontender and Nondistended
Skin: Warm
Neuro: Awake, Alert, Oriented and AO x 3
Psych: Calm
Data Reviewed
-
Diagnostic Radiology: Report Reviewed by me
Labs: Labs Reviewed by me
[2024-04-20] MEDS: ABILIFY 2 MG PO (09:22)
[2024-04-20] MEDS: PROTONIX 40 MG PO (09:23)
[2024-04-20] MEDS: LOW STRENGTH ASPIRIN 81 MG PO (09:23)
[2024-04-20] MEDS: ZOLOFT 100 MG PO (09:23)
[2024-04-20] MEDS: HEPARIN 5000 UNITS SC ×2 (09:23→20:45)
[2024-04-20] MEDS: LIDOCAINE 4% PATCH 1 PATCH TOPICAL ×2 (09:24)
[2024-04-20] MEDS: SENOKOT-S PO ×2 (09:43→20:45)
[2024-04-20 14:55] VITALS: BP 112/61; PULSE 77; O2SAT 98
--- NOTE | 2024-04-20 15:09 | CM ---
Continue bed search.
Referrals sent and updated.
Plan: skilled rehab once bed available.
[2024-04-20 15:30] VITALS: BP 117/71
[2024-04-20] MEDS: LIPITOR PO (17:55)
[2024-04-20] MEDS: NEURONTIN 100 MG PO (20:44)
[2024-04-20 23:32] VITALS: BP 107/65
--- NOTE | 2024-04-21 02:57 | PTCARENOTE ---
Pt assessed as per work list flow sheet. Needs to be encouraged to participate in cares. No s/s of distress assessed. Will continue to monitor.
[2024-04-21] MEDS: ROXICODONE 5 MG PO ×4 (03:18→20:47)
[2024-04-21 07:57] VITALS: BP 128/75
[2024-04-21] MEDS: LOW STRENGTH ASPIRIN 81 MG PO (08:46)
[2024-04-21] MEDS: ABILIFY 2 MG PO (08:46)
[2024-04-21] MEDS: ZOLOFT 100 MG PO (08:46)
[2024-04-21] MEDS: HEPARIN 5000 UNITS SC ×2 (08:46→20:38)
[2024-04-21] MEDS: PROTONIX 40 MG PO (08:46)
[2024-04-21] MEDS: SENOKOT-S PO ×2 (08:48→20:40)
[2024-04-21] MEDS: LIDOCAINE 4% PATCH 1 PATCH TOPICAL ×2 (08:48)
--- NOTE | 2024-04-21 09:33 | W.PN.HOSP.TC ---
Today's Communication/Plan
-
dispo planning
Assessment / Plan
Assessment / Plan
Toxic metabolic encephalopathy secondary to lithium toxicity�resolved
TERESSA secondary to lithium toxicity�resolved
-S/p temporary hemodialysis
Bipolar disorder versus schizoaffective-per psychiatry continue to hold lithium indefinitely, increase Abilify
Spiculated 2.7 right lung mass�outpatient bronchoscopy and pulmonary follow-up
CVA history continue statin and aspirin
Ambulatory dysfunction�return to rehab
Glossopharyngeal neuralgia�evaluated by ENT, DC antibiotics, continue gabapentin
Appendicolith measuring 5 mm without evidence of appendicitis
Asymptomatic cholelithiasis outpatient surgery follow-up
Pending placement. medically cleared
Anticipated Discharge: > 48 hours
Subjective/Interval History
-
Date of Service: April 21, 2024
no new questions or concerns
Objective Data
-
Vital Signs:
Vital Signs
Temp Pulse Resp BP Pulse Ox
97.4 F 63 18 128/75 99
04/21/24 07:57 04/21/24 07:57 04/21/24 07:57 04/21/24 07:57 04/21/24 07:57
I&O
04/20/24 04/21/24 04/22/24
06:59 06:59 06:59
Intake Total 520 / 520 1400 / 1400
Balance 520 / 520 1400 / 1400
Review of Systems
-
History Source: Patient
All other systems: Reviewed and negative
Physical Exam
-
General: No Apparent Distress
HEENT: PERRLA
Respiratory: Clear to Auscultation; Negative Wheezes
GI: Soft, Nontender and Nondistended
Skin: Warm
Neuro: Awake, Alert, Oriented and AO x 3
Psych: Calm
Data Reviewed
-
Diagnostic Radiology: Report Reviewed by me
Labs: Labs Reviewed by me
--- NOTE | 2024-04-21 11:10 | CM ---
Reviewed the chart notes. Additional referrals sent via [facility]. Search continues for a bed. CM continues to be available to patient/family and is monitoring medical plan for needs at discharge.
Plan: Discharge to SNF once a bed is secured and precert obtained.
--- NOTE | 2024-04-21 11:10 | WOUNDNOTE ---
[facility] RN NOTE: Reviewed chart and met with patient. Patient requesting consult for new brown patches she found on her left hand. Patches are dry and slightly raised. Patient denies pain, itching or drainage. Patient has very dry skin on hands, arms
and legs. Suspect that brown areas are callus. Patient declining use of mineral oil or other lotions or topical treatments. She explained that cannot tolerate anything on her skin. Plan is that patient will continue to assess for changes and discuss
with hospitalist if needed. Heels and sacrum intact. Will sign off.
[2024-04-21 15:17] VITALS: BP 119/70
[2024-04-21 16:17] VITALS: BP 119/70
[2024-04-21] MEDS: LIPITOR PO (17:59)
[2024-04-21] MEDS: NEURONTIN 100 MG PO (20:40)
[2024-04-21 23:42] VITALS: BP 111/58
[2024-04-22] MEDS: ROXICODONE 5 MG PO ×4 (03:25→20:33)
[2024-04-22 06:00] VITALS: BMI 38.3
[2024-04-22 07:30] VITALS: BP 126/75
[2024-04-22] MEDS: ZOLOFT 100 MG PO (08:25)
[2024-04-22] MEDS: PROTONIX 40 MG PO (08:25)
[2024-04-22] MEDS: SENOKOT-S PO ×2 (08:25→20:34)
[2024-04-22] MEDS: HEPARIN 5000 UNITS SC ×2 (08:26→20:33)
[2024-04-22] MEDS: ABILIFY 2 MG PO (08:26)
[2024-04-22] MEDS: LOW STRENGTH ASPIRIN 81 MG PO (08:26)
[2024-04-22] MEDS: LIDOCAINE 4% PATCH 1 PATCH TOPICAL ×2 (08:28→08:30)
--- NOTE | 2024-04-22 09:59 | W.PN.HOSP.TC ---
Today's Communication/Plan
-
diso planning
Assessment / Plan
Assessment / Plan
Toxic metabolic encephalopathy secondary to lithium toxicity�resolved
TERESSA secondary to lithium toxicity�resolved
-S/p temporary hemodialysis
Bipolar disorder versus schizoaffective-per psychiatry continue to hold lithium indefinitely, increase Abilify
Spiculated 2.7 right lung mass�outpatient bronchoscopy and pulmonary follow-up
CVA history continue statin and aspirin
Ambulatory dysfunction�return to rehab
Glossopharyngeal neuralgia�evaluated by ENT, DC antibiotics, continue gabapentin
Appendicolith measuring 5 mm without evidence of appendicitis
Asymptomatic cholelithiasis outpatient surgery follow-up
Pending placement. medically cleared
Anticipated Discharge: 24 - 48 hours
Subjective/Interval History
-
Date of Service: April 22, 2024
no new complaints
plans to get out of the chair today
Objective Data
-
Vital Signs:
Vital Signs
Temp Pulse Resp BP Pulse Ox
97.7 F 65 18 126/75 97
04/22/24 07:30 04/22/24 07:30 04/22/24 07:30 04/22/24 07:30 04/22/24 07:30
I&O
04/21/24 04/22/24 04/23/24
06:59 06:59 06:59
Intake Total 1400 / 1400 1660 / 1660
Balance 1400 / 1400 1660 / 1660
Review of Systems
-
History Source: Patient
All other systems: Reviewed and negative
Physical Exam
-
General: No Apparent Distress
HEENT: PERRLA
Respiratory: Clear to Auscultation; Negative Wheezes
GI: Soft, Nontender and Nondistended
Skin: Warm and Other (abdominal bruising from heparin shots )
Neuro: Awake, Alert, Oriented and AO x 3
Psych: Calm
Data Reviewed
-
Diagnostic Radiology: Report Reviewed by me
Labs: Labs Reviewed by me
[2024-04-22 15:15] VITALS: BP 117/77
[2024-04-22] MEDS: LIPITOR PO (16:35)
[2024-04-22] MEDS: NEURONTIN 100 MG PO (21:56)
[2024-04-22 23:33] VITALS: BP 109/58
[2024-04-23 06:00] VITALS: BMI 38.2
[2024-04-23] MEDS: ROXICODONE 5 MG PO ×4 (06:31→21:01)
[2024-04-23 07:25] VITALS: BP 120/65
[2024-04-23] MEDS: PROTONIX 40 MG PO (08:41)
[2024-04-23] MEDS: LIDOCAINE 4% PATCH 1 PATCH TOPICAL ×2 (08:41→08:42)
[2024-04-23] MEDS: HEPARIN 5000 UNITS SC ×2 (08:41→21:00)
[2024-04-23] MEDS: LOW STRENGTH ASPIRIN 81 MG PO (08:41)
[2024-04-23] MEDS: ZOLOFT 100 MG PO (08:41)
[2024-04-23] MEDS: ABILIFY 2 MG PO (08:41)
[2024-04-23] MEDS: SENOKOT-S PO ×2 (08:42→21:00)
--- NOTE | 2024-04-23 09:34 | W.PN.HOSP.TC ---
Today's Communication/Plan
-
dispo planning
Assessment / Plan
Assessment / Plan
Toxic metabolic encephalopathy secondary to lithium toxicity�resolved
TERESSA secondary to lithium toxicity�resolved
-S/p temporary hemodialysis
Bipolar disorder versus schizoaffective-per psychiatry continue to hold lithium indefinitely, increase Abilify
Spiculated 2.7 right lung mass�outpatient bronchoscopy and pulmonary follow-up
CVA history continue statin and aspirin
Ambulatory dysfunction�return to rehab
Glossopharyngeal neuralgia�evaluated by ENT, DC antibiotics, continue gabapentin
Appendicolith measuring 5 mm without evidence of appendicitis
Asymptomatic cholelithiasis outpatient surgery follow-up
Pending placement. medically cleared
Anticipated Discharge: 24 - 48 hours
Subjective/Interval History
-
Date of Service: April 23, 2024
no new questions or concerns
Objective Data
-
Vital Signs:
Vital Signs
Temp Pulse Resp BP Pulse Ox
97.8 F 71 16 120/65 94
04/23/24 07:25 04/23/24 07:25 04/23/24 07:25 04/23/24 07:25 04/23/24 07:25
I&O
04/22/24 04/23/24 04/24/24
06:59 06:59 06:59
Intake Total 0 / 1660 1500 / 1500
Balance 1660 / 1660 1500 / 1500
Review of Systems
-
History Source: Patient
All other systems: Reviewed and negative
Physical Exam
-
General: No Apparent Distress
HEENT: PERRLA
Respiratory: Clear to Auscultation; Negative Wheezes
GI: Soft, Nontender and Nondistended
Skin: Warm and Other (abdominal bruising from heparin shots )
Neuro: Awake, Alert, Oriented and AO x 3
Psych: Calm
Data Reviewed
-
Diagnostic Radiology: Report Reviewed by me
Labs: Labs Reviewed by me
--- NOTE | 2024-04-23 13:11 | CHAP ---
Tierra had a peaceful spirit, but told me she's 'done with life.' Said she just wants to 'go home' (to [facility].) Her family members have , and she doesn't know why she is left. She described past suicide attempts. Emotional and spiritual
support provided - Tierra has [place] Rastaf[employer] background, and she welcomed prayer. Prayer blanket also provided, along with assurance of our on-going availability.
[2024-04-23] MEDS: LIPITOR PO (14:46)
[2024-04-23 15:20] VITALS: BP 128/66
--- NOTE | 2024-04-23 16:47 | PTCARENOTE ---
Earlier in day asked pt if she would be willing to sit in chair and she said maybe later. Revisited the question again and she declined. I reviewed the importance of sitting out of bed. Pt is moving some in bed but not entirely due to back pain
she says. Discussed skin breakdown if not getting off her bottom. Pt is aware of what could happen if not able to turn or rotate hips to relieve skin pressure. i suggested she get out this sharmin and sit in the chair.
[2024-04-23] MEDS: NEURONTIN 100 MG PO (21:00)
[2024-04-23 23:22] VITALS: BP 114/67
[2024-04-24] MEDS: ROXICODONE 5 MG PO ×5 (01:53→22:19)
[2024-04-24 06:00] VITALS: BMI 38.4
[2024-04-24 07:58] VITALS: BP 125/72
[2024-04-24] MEDS: PROTONIX 40 MG PO (08:10)
[2024-04-24] MEDS: LOW STRENGTH ASPIRIN 81 MG PO (08:10)
[2024-04-24] MEDS: ABILIFY 2 MG PO (08:10)
[2024-04-24] MEDS: SENOKOT-S PO ×2 (08:12→20:21)
[2024-04-24] MEDS: ZOLOFT 100 MG PO (08:12)
[2024-04-24] MEDS: LIDOCAINE 4% PATCH 1 PATCH TOPICAL ×2 (08:13)
[2024-04-24] MEDS: HEPARIN 5000 UNITS SC ×2 (08:13→20:21)
--- NOTE | 2024-04-24 12:28 | W.PN.HOSP.TC ---
Today's Communication/Plan
-
Assessment / Plan
Assessment / Plan
NAD
Scleral Anicteric
MMM
No JVD
CTABL
RRR, S1/S2
Soft, NT, ND, BS+
Warm, Dry
Toxic metabolic encephalopathy secondary to lithium toxicity�resolved
TERESSA secondary to lithium toxicity�resolved
-S/p temporary hemodialysis
Bipolar disorder versus schizoaffective-per psychiatry continue to hold lithium indefinitely, increase Abilify
Spiculated 2.7 right lung mass�outpatient bronchoscopy and pulmonary follow-up
CVA history continue statin and aspirin
Ambulatory dysfunction�return to rehab
Glossopharyngeal neuralgia�evaluated by ENT, DC antibiotics, continue gabapentin
Appendicolith measuring 5 mm without evidence of appendicitis
Asymptomatic cholelithiasis outpatient surgery follow-up
Pending placement. medically cleared
Anticipated Discharge: Within 24 hours
Subjective/Interval History
-
Date of Service: April 24, 2024
Seen and examined. No new complaints. No acute overnight events.
Objective Data
-
Vital Signs:
Vital Signs
Temp Pulse Resp BP Pulse Ox
97.8 F 66 18 125/72 96
04/24/24 07:58 04/24/24 07:58 04/24/24 07:58 04/24/24 07:58 04/24/24 11:53
I&O
04/23/24 04/24/24 04/25/24
06:59 06:59 06:59
Intake Total 1500 / 1500 1719
Balance 1500 / 1500 1719
[2024-04-24] MEDS: LIPITOR PO (13:21)
--- NOTE | 2024-04-24 15:30 | CM ---
Patient seen bedside.
Bedsearch continues.
Patient very thankful for all we are doing for her.
CM spoke with Sarah from [facility] today re insurance information.
CM mentioned to patient that she spoke with Sarah and patient receptive to Sarah coming to visit tomorrow.
Per Sarah she has patients cats remains in her office and all belongings remain at the facility.
Per Sarah she had spoken with patient on the phone 2 weeks ago a was concerned with how she was doing.
Plan: skilled rehab/LTC once bed available.
[2024-04-24 16:19] VITALS: BP 105/72
[2024-04-24] MEDS: NEURONTIN 100 MG PO (22:19)
[2024-04-24 23:39] VITALS: BP 108/60
[2024-04-25] MEDS: ROXICODONE 5 MG PO ×4 (04:30→19:01)
[2024-04-25 06:00] VITALS: BMI 38.7
[2024-04-25 07:10] VITALS: BP 138/72
[2024-04-25] MEDS: LIDOCAINE 4% PATCH 1 PATCH TOPICAL ×2 (07:58)
[2024-04-25] MEDS: ABILIFY 2 MG PO (07:58)
[2024-04-25] MEDS: LOW STRENGTH ASPIRIN 81 MG PO (07:58)
[2024-04-25] MEDS: PROTONIX 40 MG PO (07:58)
[2024-04-25] MEDS: HEPARIN 5000 UNITS SC ×2 (07:59→20:27)
[2024-04-25] MEDS: ZOLOFT 100 MG PO (07:59)
[2024-04-25] MEDS: SENOKOT-S PO ×2 (07:59→20:28)
--- NOTE | 2024-04-25 13:59 | CM ---
Reviewed the chart notes. CM continues to be available to patient/family and is monitoring medical plan for needs at discharge.
Plan: Discharge to SNF/rehab for skilled need and eventual MA bed once a bed is secured and precert obtained.
[2024-04-25] MEDS: LIPITOR PO (14:01)
--- NOTE | 2024-04-25 14:57 | W.PN.HOSP.TC ---
Today's Communication/Plan
-
Pending placement
Assessment / Plan
Assessment / Plan
NAD
Scleral Anicteric
MMM
No JVD
CTABL
RRR, S1/S2
Soft, NT, ND, BS+
Warm, Dry
Toxic metabolic encephalopathy secondary to lithium toxicity�resolved
TERESSA secondary to lithium toxicity�resolved
-S/p temporary hemodialysis
Bipolar disorder versus schizoaffective-per psychiatry continue to hold lithium indefinitely, increase Abilify
Spiculated 2.7 right lung mass�outpatient bronchoscopy and pulmonary follow-up
CVA history continue statin and aspirin
Ambulatory dysfunction�return to rehab
Glossopharyngeal neuralgia�evaluated by ENT, DC antibiotics, continue gabapentin
Appendicolith measuring 5 mm without evidence of appendicitis
Asymptomatic cholelithiasis outpatient surgery follow-up
Pending placement. medically cleared
Anticipated Discharge: Within 24 hours
Subjective/Interval History
-
Date of Service: April 25, 2024
Seen and examined. No new complaints. No acute overnight events.
Objective Data
-
Vital Signs:
Vital Signs
Temp Pulse Resp BP Pulse Ox
97.6 F 70 16 138/72 96
04/25/24 07:10 04/25/24 07:10 04/25/24 07:10 04/25/24 07:10 04/25/24 10:50
I&O
04/24/24 04/25/24 04/26/24
06:59 06:59 06:59
Intake Total 1719
Balance 1719
[2024-04-25 15:15] VITALS: BP 128/74
[2024-04-25] MEDS: NEURONTIN 100 MG PO (21:40)
[2024-04-25 23:05] VITALS: BP 110/63
[2024-04-26] MEDS: ROXICODONE 5 MG PO ×5 (04:22→23:10)
[2024-04-26 08:05] VITALS: BP 137/64
[2024-04-26] MEDS: LIDOCAINE 4% PATCH 1 PATCH TOPICAL ×2 (09:07)
[2024-04-26] MEDS: LOW STRENGTH ASPIRIN 81 MG PO (09:08)
[2024-04-26] MEDS: ZOLOFT 100 MG PO (09:08)
[2024-04-26] MEDS: PROTONIX 40 MG PO (09:08)
[2024-04-26] MEDS: HEPARIN 5000 UNITS SC ×2 (09:08→20:29)
[2024-04-26] MEDS: ABILIFY 2 MG PO (09:08)
[2024-04-26] MEDS: SENOKOT-S PO ×2 (09:09→20:30)
--- NOTE | 2024-04-26 09:58 | CM ---
Reviewed the chart notes and spoke with the patient at the bedside. Per patient, Sarah from [facility] did not visit yesterdays as planned. CM continues to be available to patient/family and is monitoring medical plan for needs at discharge.
Plan: Discharge to SNF once bed found.
--- NOTE | 2024-04-26 12:11 | W.PN.HOSP.TC ---
Today's Communication/Plan
-
pending placement
Assessment / Plan
Assessment / Plan
NAD
Scleral Anicteric
MMM
No JVD
CTABL
RRR, S1/S2
Soft, NT, ND, BS+
Warm, Dry
Toxic metabolic encephalopathy secondary to lithium toxicity�resolved
TERESSA secondary to lithium toxicity�resolved
-S/p temporary hemodialysis
Bipolar disorder versus schizoaffective-per psychiatry continue to hold lithium indefinitely, increase Abilify
Spiculated 2.7 right lung mass�outpatient bronchoscopy and pulmonary follow-up
CVA history continue statin and aspirin
Ambulatory dysfunction�return to rehab
Glossopharyngeal neuralgia�evaluated by ENT, DC antibiotics, continue gabapentin
Appendicolith measuring 5 mm without evidence of appendicitis
Asymptomatic cholelithiasis outpatient surgery follow-up
Pending placement. medically cleared
Anticipated Discharge: Within 24 hours
Subjective/Interval History
-
Date of Service: April 26, 2024
seen and examied
has strawberry shortcakes nect to bed
she asked if i cold give htome to nursing
i informed her that when her nurse came in she should give it to her
Objective Data
-
Vital Signs:
Vital Signs
Temp Pulse Resp BP Pulse Ox
97.8 F 73 18 137/64 97
04/26/24 08:05 04/26/24 08:05 04/26/24 08:05 04/26/24 08:05 04/26/24 08:05
I&O
04/25/24 04/26/24 04/27/24
06:59 06:59 06:59
Intake Total 1869
Balance 1869
[2024-04-26 16:08] VITALS: BP 131/74
[2024-04-26] MEDS: LIPITOR PO ×2 (18:24→18:26)
[2024-04-26] MEDS: NEURONTIN 100 MG PO (21:27)
[2024-04-26 23:47] VITALS: BP 119/65
[2024-04-27] MEDS: ROXICODONE 5 MG PO ×4 (03:52→18:10)
[2024-04-27 08:00] VITALS: BP 118/67
[2024-04-27] MEDS: LIDOCAINE 4% PATCH 1 PATCH TOPICAL ×2 (08:51→08:52)
[2024-04-27] MEDS: ABILIFY 2 MG PO (08:52)
[2024-04-27] MEDS: ZOLOFT 100 MG PO (08:52)
[2024-04-27] MEDS: HEPARIN 5000 UNITS SC ×2 (08:52→21:14)
[2024-04-27] MEDS: PROTONIX 40 MG PO (08:52)
[2024-04-27] MEDS: LOW STRENGTH ASPIRIN 81 MG PO (08:52)
[2024-04-27] MEDS: SENOKOT-S PO (08:53)
--- NOTE | 2024-04-27 09:31 | CM ---
Reviewed the chart notes and spoke with [facility] Admissions Liaison Zuleika ([phone]). Zuleika is planning on reassessing the patient today around noon. CM continues to be available to patient/family and is monitoring medical
plan for needs at discharge.
Plan: Discharge to SNF once bed secured.
--- NOTE | 2024-04-27 13:28 | W.PN.HOSP.TC ---
Today's Communication/Plan
-
Assessment / Plan
Assessment / Plan
NAD
Scleral Anicteric
MMM
No JVD
CTABL
RRR, S1/S2
Soft, NT, ND, BS+
Warm, Dry
Toxic metabolic encephalopathy secondary to lithium toxicity�resolved
TERESSA secondary to lithium toxicity�resolved
-S/p temporary hemodialysis
Bipolar disorder versus schizoaffective-per psychiatry continue to hold lithium indefinitely, increase Abilify
Spiculated 2.7 right lung mass�outpatient bronchoscopy and pulmonary follow-up
CVA history continue statin and aspirin
Ambulatory dysfunction�return to rehab
Glossopharyngeal neuralgia�evaluated by ENT, DC antibiotics, continue gabapentin
Appendicolith measuring 5 mm without evidence of appendicitis
Asymptomatic cholelithiasis outpatient surgery follow-up
Pending placement. medically cleared
Anticipated Discharge: Within 24 hours
Subjective/Interval History
-
Date of Service: April 27, 2024
seen and examined. clinically remains unchanged
Objective Data
-
Vital Signs:
Vital Signs
Temp Pulse Resp BP Pulse Ox
97.5 F 64 18 118/67 96
04/27/24 08:00 04/27/24 08:00 04/27/24 08:00 04/27/24 08:00 04/27/24 08:00
I&O
04/26/24 04/27/24 04/28/24
06:59 06:59 06:59
Intake Total 1979
Balance 1979
[2024-04-27 15:32] VITALS: BP 109/66
[2024-04-27] MEDS: LIPITOR PO ×2 (18:10→18:13)
[2024-04-27] MEDS: SENOKOT-S 1 TABLET PO (21:15)
[2024-04-27] MEDS: NEURONTIN 100 MG PO (21:15)
[2024-04-27 23:34] VITALS: BP 107/71
[2024-04-28] MEDS: ROXICODONE 5 MG PO ×5 (00:21→20:00)
[2024-04-28 06:30] VITALS: BP 144/79
[2024-04-28 07:30] VITALS: BP 144/79
[2024-04-28] MEDS: PROTONIX 40 MG PO (07:34)
[2024-04-28] MEDS: LOW STRENGTH ASPIRIN 81 MG PO (07:34)
[2024-04-28] MEDS: ABILIFY 2 MG PO (07:34)
[2024-04-28] MEDS: LIDOCAINE 4% PATCH 1 PATCH TOPICAL ×2 (07:35)
[2024-04-28] MEDS: HEPARIN 5000 UNITS SC ×2 (07:35→19:55)
[2024-04-28] MEDS: SENOKOT-S PO ×2 (07:39→19:56)
--- NOTE | 2024-04-28 13:22 | W.PN.HOSP.TC ---
Today's Communication/Plan
-
Assessment / Plan
Assessment / Plan
NAD
Scleral Anicteric
MMM
No JVD
CTABL
RRR, S1/S2
Soft, NT, ND, BS+
Warm, Dry
Toxic metabolic encephalopathy secondary to lithium toxicity�resolved
TERESSA secondary to lithium toxicity�resolved
-S/p temporary hemodialysis
Bipolar disorder versus schizoaffective-per psychiatry continue to hold lithium indefinitely, increase Abilify
Spiculated 2.7 right lung mass�outpatient bronchoscopy and pulmonary follow-up
CVA history continue statin and aspirin
Ambulatory dysfunction�return to rehab
Glossopharyngeal neuralgia�evaluated by ENT, DC antibiotics, continue gabapentin
Appendicolith measuring 5 mm without evidence of appendicitis
Asymptomatic cholelithiasis outpatient surgery follow-up
Pending placement. medically cleared
Anticipated Discharge: Within 24 hours
Subjective/Interval History
-
Date of Service: April 28, 2024
Seen and examined. No new complaints. No acute overnight events.
Objective Data
-
Vital Signs:
Vital Signs
Temp Pulse Resp BP Pulse Ox
97.8 F 65 16 144/79 98
04/28/24 07:30 04/28/24 07:30 04/28/24 07:30 04/28/24 07:30 04/28/24 10:57
I&O
04/27/24 04/28/24 04/29/24
06:59 06:59 06:59
Intake Total 1859 1440 / 1440
Balance 1859 1440 / 1440
[2024-04-28] MEDS: LIPITOR PO (13:55)
[2024-04-28 15:25] VITALS: BP 106/70
--- NOTE | 2024-04-28 15:40 | CM ---
Reviewed the chart notes and spoke with [facility] Admissions Liaison to [facility] [place]. They will accept the patient and had started the auth yesterday. CM continues to be available to patient/family and is monitoring medical plan for
needs at discharge.
Plan: Discharge to [facility] once auth approved.
[2024-04-28] MEDS: NEURONTIN 100 MG PO (23:02)
[2024-04-28 23:35] VITALS: BP 105/61
[2024-04-29] MEDS: ROXICODONE 5 MG PO ×5 (01:25→20:00)
[2024-04-29 05:53] VITALS: BMI 38.7
[2024-04-29 07:46] VITALS: BP 141/67
[2024-04-29] MEDS: LIDOCAINE 4% PATCH 1 PATCH TOPICAL ×2 (08:43→08:44)
[2024-04-29] MEDS: PROTONIX 40 MG PO (08:44)
[2024-04-29] MEDS: ABILIFY 2 MG PO (08:44)
[2024-04-29] MEDS: HEPARIN 5000 UNITS SC ×2 (08:44→19:59)
[2024-04-29] MEDS: LOW STRENGTH ASPIRIN 81 MG PO (08:45)
[2024-04-29] MEDS: SENOKOT-S PO ×2 (08:45→21:05)
[2024-04-29] MEDS: ZOLOFT 100 MG PO (08:45)
--- NOTE | 2024-04-29 12:23 | W.PN.HOSP.TC ---
Today's Communication/Plan
-
Assessment / Plan
Assessment / Plan
NAD
Scleral Anicteric
MMM
No JVD
CTABL
RRR, S1/S2
Soft, NT, ND, BS+
Warm, Dry
Toxic metabolic encephalopathy secondary to lithium toxicity�resolved
TERESSA secondary to lithium toxicity�resolved
-S/p temporary hemodialysis
Bipolar disorder versus schizoaffective-per psychiatry continue to hold lithium indefinitely, increase Abilify
Spiculated 2.7 right lung mass�outpatient bronchoscopy and pulmonary follow-up
CVA history continue statin and aspirin
Ambulatory dysfunction�return to rehab
Glossopharyngeal neuralgia�evaluated by ENT, DC antibiotics, continue gabapentin
Appendicolith measuring 5 mm without evidence of appendicitis
Asymptomatic cholelithiasis outpatient surgery follow-up
Pending placement. medically cleared
Anticipated Discharge: > 48 hours
Subjective/Interval History
-
Date of Service: April 29, 2024
Seen and examined. Clinically remains unchanged
Objective Data
-
Vital Signs:
Vital Signs
Temp Pulse Resp BP Pulse Ox
97.6 F 64 18 141/67 97
04/29/24 07:46 04/29/24 07:46 04/29/24 07:46 04/29/24 07:46 04/29/24 07:46
I&O
04/28/24 04/29/24 04/30/24
06:59 06:59 06:59
Intake Total 1440 / 1440 1560 / 1560
Balance 1440 / 1440 1560 / 1560
[2024-04-29 15:58] VITALS: BP 111/68
[2024-04-29] MEDS: LIPITOR PO (17:07)
[2024-04-29] MEDS: NEURONTIN 100 MG PO (22:34)
[2024-04-29 23:10] VITALS: BP 119/67
[2024-04-30] MEDS: ROXICODONE 5 MG PO ×5 (00:33→20:10)
[2024-04-30 06:00] VITALS: BMI 39.4
[2024-04-30 07:02] VITALS: BP 124/81
[2024-04-30] MEDS: PROTONIX 40 MG PO (08:55)
[2024-04-30] MEDS: ZOLOFT 100 MG PO (08:55)
[2024-04-30] MEDS: LOW STRENGTH ASPIRIN 81 MG PO (08:55)
[2024-04-30] MEDS: ABILIFY 2 MG PO (08:55)
[2024-04-30] MEDS: LIDOCAINE 4% PATCH 1 PATCH TOPICAL ×2 (08:56)
[2024-04-30] MEDS: HEPARIN 5000 UNITS SC ×2 (08:56→20:11)
[2024-04-30] MEDS: SENOKOT-S PO ×2 (09:03→20:09)
--- NOTE | 2024-04-30 11:45 | W.PN.HOSP.TC ---
Today's Communication/Plan
-
Assessment / Plan
Assessment / Plan
NAD
Scleral Anicteric
MMM
No JVD
CTABL
RRR, S1/S2
Soft, NT, ND, BS+
Warm, Dry
Toxic metabolic encephalopathy secondary to lithium toxicity�resolved
TERESSA secondary to lithium toxicity�resolved
-S/p temporary hemodialysis
Bipolar disorder versus schizoaffective-per psychiatry continue to hold lithium indefinitely, increase Abilify
Spiculated 2.7 right lung mass�outpatient bronchoscopy and pulmonary follow-up
CVA history continue statin and aspirin
Ambulatory dysfunction�return to rehab
Glossopharyngeal neuralgia�evaluated by ENT, DC antibiotics, continue gabapentin
Appendicolith measuring 5 mm without evidence of appendicitis
Asymptomatic cholelithiasis outpatient surgery follow-up
Pending placement. medically cleared
Anticipated Discharge: > 48 hours
Subjective/Interval History
-
Date of Service: April 30, 2024
Seen and examined. No new complaints. No acute overnight events.
Objective Data
-
Vital Signs:
Vital Signs
Temp Pulse Resp BP Pulse Ox
97.7 F 69 18 124/81 96
04/30/24 07:02 04/30/24 07:02 04/30/24 07:02 04/30/24 07:02 04/30/24 07:02
I&O
04/29/24 04/30/24 05/01/24
06:59 06:59 06:59
Intake Total 1560 / 1560 1320 / 1320
Balance 1560 / 1560 1320 / 1320
[2024-04-30 15:20] VITALS: BP 127/68
[2024-04-30] MEDS: LIPITOR PO (17:06)
[2024-04-30] MEDS: NEURONTIN 100 MG PO (21:32)
[2024-04-30 23:05] VITALS: BP 127/67
[2024-05-01] MEDS: ROXICODONE 5 MG PO ×4 (00:43→14:58)
[2024-05-01 05:09] VITALS: BMI 39.3
[2024-05-01 06:00] VITALS: BMI 39.3
[2024-05-01] MEDS: PROTONIX 40 MG PO (07:43)
[2024-05-01] MEDS: LOW STRENGTH ASPIRIN 81 MG PO (07:43)
[2024-05-01] MEDS: HEPARIN 5000 UNITS SC (07:44)
[2024-05-01] MEDS: ZOLOFT 100 MG PO (07:44)
[2024-05-01] MEDS: ABILIFY 2 MG PO (07:44)
[2024-05-01] MEDS: LIDOCAINE 4% PATCH 1 PATCH TOPICAL ×2 (07:44)
[2024-05-01] MEDS: SENOKOT-S PO (07:49)
[2024-05-01 07:55] VITALS: BP 134/73
--- NOTE | 2024-05-01 09:28 | CM ---
Addendum entered by Isabella Simon RN 05/01/24 14:47:
SHARONDA spoke with Sarah at [facility] regarding the patient's belongs. Per Sarah, she lives in [place] and will drop the patient's belongs off over the next couple of days. She has in her office the patient's wallet, cat remains and other person
items. She will need to see about the patient's clothing. Patient updated on the above plan.
Original Note:
Reviewed the chart notes and spoke with Zuleika from [facility], auth has been obtained. Patient accepted. Spoke with the patient at the bedside and updated on plan for discharge after lunch today. Attending notified by TT.
Plan: Discharge to [facility], [facility]
Call report to: [phone]; ask for first floor nurses station
Fax report to: [phone]
Medical necessity and transport form on chart.
--- NOTE | 2024-05-01 11:02 | W.DS.TRANS ---
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
-
Discharge Instructions:
Discharge Diagnosis/Procedures Acute kidney injury
Diet Low Sodium
Additional Diets Minced and moist
Activity As tolerated
Driving Restrictions As prior to admission
Blood Work BMP in 1 week with family doctor
Instructions:
Stand-Alone Forms:
Changes to Home Medications: Yes
Discharge Medications:
DC Medications w/original date entered in [facility]
acetaminophen 325 mg tablet (Tylenol) 650 mg PO Q6HPRN PRN mild pain 03/14/24
bisacodyl 10 mg rectal suppository (Dulcolax (bisacodyl)) 10 mg MT DAILYPRN PRN if no bm aftr mom 03/14/24
buprenorphine HCl 600 mcg buccal film 600 mcg buccal Q12H 03/14/24
magnesium hydroxide 400 mg/5 mL oral suspension (Milk of Magnesia) 2,400 mg PO [id number] PRN constipation 03/14/24
nystatin 100,000 unit/gram topical powder 1 applic topical BID 03/14/24
ondansetron HCl 8 mg tablet 8 mg PO Q8HPRN PRN nausea 03/14/24
pantoprazole 40 mg tablet,delayed release (Protonix) 40 mg PO DAILY 03/14/24
sodium phosphates 19 gram-7 gram/118 mL enema (Fleet Enema) 118 ml MT DAILYPRN PRN if no bm aftr dulcolax 03/14/24
aripiprazole 2 mg tablet 2 mg PO DAILY #30 tabs 03/21/24
aspirin 81 mg chewable tablet 81 mg PO DAILY #30 tabs 03/21/24
atorvastatin 40 mg tablet 40 mg PO QPM #30 tabs 03/21/24
gabapentin 100 mg capsule 100 mg PO HS #5 caps 03/28/24
sertraline 25 mg tablet 50 mg (2 x 25 mg) PO DAILY #30 tabs 03/28/24
Home Medication Changes
[place] and Lasix stopped
Pending Results: No
[2024-05-01 15:26] VITALS: BP 130/69
--- NOTE | 2024-05-01 15:28 | PTCARENOTE ---
Patient discharged to [facility], transported via EMS. This RN called report to Chloe at facility. Patient given bed bath prior to discharge by tech. Vitals stable. No IV or tele pack on patient. Belongings gathered at bedside and handed to
transport team. Patient medicated with PRN 5 mg oxy prior to transport, med list to facility updated to reflect administration.
== END 2024-05-01 15:36 | DRG 682 ==
LOC: 2 NORTH 13:04
PROVIDERS: Hospitalist; Internal Medicine; Nurse Practitioner Family; Radiology Vascular & Interventional Radiology; Specialist; Student in an Organized Health Care Education/Training Program; ADMITTING PHYSICIAN Hospitalist; ATTENDING PHYSICIAN Internal Medicine; CONSULT PHYSICIAN Internal Medicine Critical Care Medicine; CONSULT PHYSICIAN Internal Medicine Nephrology; CONSULT PHYSICIAN Otolaryngology; EMERGENCY PHYSICIAN Emergency Medicine; FAMILY PHYSICIAN Internal Medicine; OTHER PHYSICIAN Psychiatry & Neurology Psychiatry
PROC: 5A1D70Z Performance of Urinary Filtration, Intermittent, Less than 6 Hours Per Day (ICD-10-PCS; 2024-03-14)
PROC: 0T9B70Z Drainage of Bladder with Drainage Device, Via Natural or Artificial Opening (ICD-10-PCS; 2024-03-14)
PROC: B5181ZA Fluoroscopy of Superior Vena Cava using Low Osmolar Contrast, Guidance (ICD-10-PCS; 2024-03-14)
PROC: 02H633Z Insertion of Infusion Device into Right Atrium, Percutaneous Approach (ICD-10-PCS; 2024-03-14)
PROC: 0TPBX0Z Removal of Drainage Device from Bladder, External Approach (ICD-10-PCS; 2024-03-19)
PROC: 02PAX3Z Removal of Infusion Device from Heart, External Approach (ICD-10-PCS; 2024-03-20)
DX: N17.9 Acute kidney failure, unspecified (principal); G92.8 Other toxic encephalopathy; C34.91 Malignant neoplasm of unspecified part of right bronchus or lung; E87.0 Hyperosmolality and hypernatremia; I31.39 Other pericardial effusion (noninflammatory); F25.9 Schizoaffective disorder, unspecified; F80.89 Other developmental disorders of speech and language; I11.9 Hypertensive heart disease without heart failure; K21.9 Gastro-esophageal reflux disease without esophagitis; E78.00 Pure hypercholesterolemia, unspecified; R09.02 Hypoxemia; R73.9 Hyperglycemia, unspecified; G89.4 Chronic pain syndrome; R34 Anuria and oliguria; D72.829 Elevated white blood cell count, unspecified; F31.9 Bipolar disorder, unspecified; E86.0 Dehydration; R41.0 Disorientation, unspecified; H61.22 Impacted cerumen, left ear; H92.02 Otalgia, left ear; R91.8 Other nonspecific abnormal finding of lung field; R26.2 Difficulty in walking, not elsewhere classified; G31.9 Degenerative disease of nervous system, unspecified; J43.9 Emphysema, unspecified; M54.2 Cervicalgia; H66.92 Otitis media, unspecified, left ear; R13.19 Other dysphagia; G52.1 Disorders of glossopharyngeal nerve; K59.00 Constipation, unspecified; K38.1 Appendicular concretions; K80.20 Calculus of gallbladder without cholecystitis without obstruction; E87.6 Hypokalemia; T43.595A Adverse effect of other antipsychotics and neuroleptics, initial encounter; Y92.129 Unspecified place in nursing home as the place of occurrence of the external cause; Z60.2 Problems related to living alone; Z86.73 Personal history of transient ischemic attack (TIA), and cerebral infarction without residual deficits; Z91.51 Personal history of suicidal behavior; Z91.041 Radiographic dye allergy status; Z91.040 Latex allergy status; Z88.2 Allergy status to sulfonamides; Z88.3 Allergy status to other anti-infective agents; Z11.52 Encounter for screening for COVID-19; Z87.891 Personal history of nicotine dependence; Z75.1 Person awaiting admission to adequate facility elsewhere
CPT/HCPCS: 36556; 70450; 70490; 71046; 71250; 74018; 74176; 76770; 76937; 77001; 80048; 80053; 80178; 81003; 81015; 82550; 82570; 83690; 83735; 83935; 84156; 84300; 85025; 85027; 86706; 87070; 87340; 87502; 87811; 92526; 92610; 93005; 93306; 95816; 96360; 96361; 97116; 97163; 97164; 97167; 97530; 97535; 99285; C1752; G0257